=== PATIENT | female | born 1945 | race Caucasian/White ===

== ENCOUNTER 2016-10-11 14:23 | Inpatient (IN) ==
[2016-10-11 15:26] LABS: Hematocrit 40.1 % (35.3-44.9); Hemoglobin 13.4 g/dL (11.5-15.4); Mean Corpuscular HGB Conc 33.4 g/dL (31.6-35.5); Mean Corpuscular Hemoglobin 30.7 pg (28.0-33.3); Mean Corpuscular Volume 91.8 fL (83.0-100.0); Mean Platelet Volume 8.8 fL (9.4-12.4); Monocytes # 1.1 K/mcL (0.0-1.3); Platelet Count 429 K/mcL (140-400); Red Blood Count 4.37 M/mcL (3.82-4.97); Red Cell Distribution Width 13.2 % (11.5-14.5)
[2016-10-11] MEDS ORDERED: 0.9 % Sodium Chloride 1,000 ML IVC ONE ×2 (15:26→17:55)
--- NOTE | 2016-10-11 15:29 | Emergency Department Note ---
Disposition Clinical Impression: New onset a-fib, Community acquired pneumonia Sepsis Qualifiers: Sepsis type: sepsis due to unspecified organism Qualified Code(s): A41.9 - Sepsis, unspecified organism Disposition: Admitted As Inpatient Condition: Fair General Adult HPI - General Chief complaint: ED Nausea/Vomiting/Diarrhea Stated complaint: falls, N/V, BENEDICT Time Seen by Provider: 10/11/16 14:37 Source: patient, family Mode of arrival: private vehicle Limitations: no limitations Nursing Notes Reviewed: Yes Vital Signs Reviewed: Yes - History of Present Illness HPI Narrative: 71-year-old female history of hypertension, diabetes, insomnia who presents to the ER with family with a chief complaint of nausea, vomiting, cough, shortness of breath. Patient reports that she has felt short of breath with a productive cough for the last month. Family at bedside reports that she has not been herself over the last few days. They state that she has been talking to people abdomen for years. They also report that she has not wanted to eat at home. Patient reports that she does not usually wear oxygen continuously but has been for the last few weeks due to worsening shortness of breath. She is unsure how much oxygen she requires. No fevers that they are aware of. No chest pain currently. No other complaints. Pt Subjective Complaint: Nausea vomiting, short of breath Onset (ago): week(s) Pain Scale: 0 Improves with: nothing Worsens with: nothing Associated symptoms: Reports: confusion (as per family), cough, loss of appetite , nausea/vomiting, shortness of breath. Denies: chest pain, fever/chills Treatments Prior to Arrival: none - Related Data Home Medications Medication Instructions Recorded Confirmed Bupropion HCl [Wellbutrin Xl] 300 mg PO DAILY 10/11/16 10/11/16 Cevimeline HCl [Evoxac] 30 mg PO TID 10/11/16 10/11/16 Cilostazol 50 mg PO BID 10/11/16 10/11/16 Clopidogrel [Plavix] 75 mg PO DAILY 10/11/16 10/11/16 Donepezil [Aricept] 10 mg PO Q48H 10/11/16 10/11/16 Famotidine [Pepcid] 40 mg PO BID 10/11/16 10/11/16 Hydroxyzine HCl 25 mg PO BID 10/11/16 10/11/16 Medroxyprogesterone Acetate 2.5 mg PO Q48H 10/11/16 10/11/16 [Provera] Melatonin 15 mg PO HS 10/11/16 10/11/16 Montelukast [Singulair] 10 mg PO DAILY 10/11/16 10/11/16 Nabumetone [Relafen] 500 mg PO BID 10/11/16 10/11/16 Pioglitazone HCl/Metformin HCl 1 each PO BID 10/11/16 10/11/16 [Actoplus Met 15 mg-500 mg Tab] Pravastatin Sodium [Pravachol] 40 mg PO HS 10/11/16 10/11/16 Sertraline [Zoloft] 100 mg PO QPM 10/11/16 10/11/16 Sertraline [Zoloft] 200 mg PO QAM 10/11/16 10/11/16 Solifenacin Succinate [Vesicare] 10 mg PO DAILY 10/11/16 10/11/16 Allergies Allergy/AdvReac Type Severity Reaction Status Date / Time Penicillins Allergy See Verified 10/11/16 14:29 Comments All systems ED: reviewed and negative except as stated. Constitutional: Reports: weakness. Denies: fever Cardiovascular: Denies: chest pain Respiratory: Reports: cough, dyspnea Gastrointestinal: Reports: nausea, vomiting. Denies: abdominal pain, diarrhea Neurological: Reports: weakness Past Medical History - Past Medical History Attestation: Yes The following information was validated with the patient. Source: patient Medical history: Reports: COPD, diabetes, hyperlipidemia, hypertension Surgical history: Reports: non-contributory - Social History Smoking Status: Current every day smoker Smokeless Tobacco Status: No Alcohol use: Reports: none Physical Exam - General Limitations: no limitations General appearance: alert, in no apparent distress - Head Head exam: atraumatic, normocephalic, normal inspection - Eye Eye exam: Present: normal appearance, EOMI - ENT ENT exam: normal exam - Neck Neck exam: Present: normal inspection - Chest Chest inspection: Present: normal inspection, symmetric chest wall rise - Respiratory Respiratory exam: Present: wheezes (diffuse wheezing in all lung gonzales with prolonged expiratory phase), accessory muscle use, prolonged expiratory phase - Cardiovascular Cardiovascular exam: Present: tachycardia, irregular rhythm, normal heart sounds - Abdominal Exam Abdominal exam: Present: soft, Non-Tender. Absent: tenderness - Extremities Exam Extremities exam: Present: normal inspection, full ROM - Expanded Upper Extremity Exam Shoulder exam: Present: normal inspection, full ROM Arm exam: Present: normal inspection, full ROM Elbow exam: Present: normal inspection, full ROM Forearm/Wrist exam: Present: normal inspection, full ROM Hand exam: Present: normal inspection, full ROM - Expanded Lower Extremity Exam Hip/Pelvis exam: Present: normal inspection, full ROM Upper leg exam: Present: normal inspection, full ROM Knee exam: Present: normal inspection, full ROM Lower leg exam: Present: normal inspection, full ROM Ankle exam: Present: normal inspection, full ROM Foot/toe exam: Present: normal inspection, full ROM - Neurological Exam Neurological exam: Present: alert, oriented X3, CN II-XII intact - Expanded Neurological Exam Patient oriented to: Present: person, place, time Speech: Present: fluid speech Motor strength - LUE: 4/5 Motor strength - RUE: 4/5 Motor strength - LLE: 4/5 Motor strength - RLE: 4/5 Coma Scale Eye Opening: Spontaneous Coma Scale Motor Response: Obeys Commands Coma Scale Verbal Response: Oriented Coma Scale Total: 15 - Psychiatric Psychiatric exam: Present: normal affect, normal mood - Skin Skin exam: Present: warm, dry, intact, normal color Course Course Narrative: Patient seen and examined. Vital signs reviewed. Patient meets sepsis criteria by her vitals. We will get an EKG, chest x-ray as well as labs including blood cultures and lactate. We will also obtain a CT scan of the head and a urinalysis. We will give her 1 L saline bolus and reassessed. Patient appears to be in A. fib RVR which is new for her. - Reevaluation(s) Reevaluation #1: Discussed results of imaging and lab work with the patient and family. She is still working to breathe so we will place her on CPAP. Vital Signs Temperature 98.8 F 10/11/16 14:27 Pulse Rate 114 10/11/16 14:27 Respiratory Rate 20 10/11/16 14:27 Blood Pressure 168/65 10/11/16 14:27 O2 Sat by Pulse Oximetry 84 10/11/16 14:27 Temperature 97.7 F 10/19/16 06:33 Pulse Rate 63 10/19/16 06:33 Respiratory Rate 18 10/19/16 06:33 Blood Pressure 131/49 04/12/17 06:33 O2 Sat by Pulse Oximetry 96 10/19/16 06:33 Oxygen Delivery Oxygen Delivery Bipap Medical Decision Making - MDM Narrative Medical decision making narrative: 71-year-old female presents to the ER due to cough, shortness of breath, weakness, nausea and vomiting. Has been sick for roughly 5 weeks. Increased O2 requirement at home from when necessary to continuous. Reports a cough and productive sputum. EKG here is atrial fibrillation with RVR which is new. Chest x-ray concerning for diffuse infectious process. She has a white count and is tachycardic so meets sepsis criteria. Her lactate is normal. Blood cultures, sputum cultures and fungal cultures have been obtained. We will start her on IV Levaquin and Diflucan concern for fungal etiology as well. Patient placed on BiPAP due to respiratory effort. Patient admitted to the hospitalist service. - Lab Data Lab results reviewed: Yes I reviewed the patient's lab results. Result diagrams: 10/19/16 04:31 10/19/16 04:31 Lab Results 10/11/16 10/11/16 10/11/16 Range/Units 15:13 15:13 15:13 WBC 14.3 H (4.3-11.1) K/mcL RBC 4.37 (3.82-4.97) M/mcL Hgb 13.4 (11.5-15.4) g/dL Hct 40.1 (35.3-44.9) % MCV 91.8 (83.0-100.0) fL MCH 30.7 (28.0-33.3) pg MCHC 33.4 (31.6-35.5) g/dL RDW 13.2 (11.5-14.5) % Plt Count 429 H (140-400) K/mcL MPV 8.8 L (9.4-12.4) fL Seg Neutrophils % 66.0 % Band Neutrophils % 12.0 H (0-4) % Lymphocytes % 14.0 % Monocytes % 8.0 % Neutrophils # 11.2 H (1.6-8.9) K/mcL Lymphocytes # 2.0 (0.6-4.6) K/mcL Monocytes # 1.1 (0.0-1.3) K/mcL Platelet Estimate Normal (Normal) Sodium 140 (136-145) mEq/L Potassium 3.0 L (3.5-4.5) mEq/L Chloride 97 L (98-109) mEq/L Carbon Dioxide 28 (19-29) mEq/L BUN 13 (7-20) mg/dL Creatinine 0.68 (0.57-1.11) mg/dL Est GFR ( Amer) > 60 (> 60) Est GFR (Non-Af Amer) > 60 (> 60) BUN/Creatinine Ratio 19 (6-26) Glucose 184 H (70-99) mg/dL Calculated Osmolality 295 (280-300) Lactic Acid 0.8 (0.5-2.2) mmol/L Calcium 10.2 (8.6-10.8) mg/dL Phosphorus 2.9 (2.3-4.7) mg/dL Magnesium 1.6 (1.6-2.6) mg/dL Total Bilirubin 0.3 (0.2-1.2) mg/dL Direct Bilirubin 0.2 (0.0-0.5) mg/dL Indirect Bilirubin 0.1 (0.0-1.2) mg/dL AST 22 (5-34) Units/L ALT 30 (0-55) Units/L Alkaline Phosphatase 105 (38-126) Units/L Troponin I (0-0.03) ng/mL B-Natriuretic Peptide (0-100) pg/mL Serum Total Protein 7.6 (6.0-8.3) g/dL Albumin 2.7 L (3.5-5.0) g/dL Globulin 4.9 H (2.4-3.5) g/dL Albumin/Globulin Ratio 0.6 L (1.1-2.2) TSH 1.073 (0.350-4.840) mcIU/mL Urine Color (Yellow) Urine Clarity (Clear) Urine pH (5.0-8.0) pH Units Ur Specific [place] (1.010-1.025) Urine Protein (Neg-Trace) mg/dL Urine Glucose (UA) (Normal) mg/dL Urine Ketones (Negative) mg/dL Urine Blood (Negative) Urine Nitrite (Negative) Urine Bilirubin (Negative) Urine Urobilinogen (Normal) mg/dL Ur Leukocyte Esterase (Negative) Urine Microscopic RBC (0-3) per hpf Urine Microscopic WBC (0-3) per hpf Ur Squamous Epith Cells (None-Few) per lpf Urine Bacteria (None-Few) per hpf Hyaline Casts (None-Few) per lpf Urine Mucus (Few) Ur Culture Indicated? (NO) 10/11/16 10/11/16 10/11/16 Range/Units 15:13 15:13 16:10 WBC (4.3-11.1) K/mcL RBC (3.82-4.97) M/mcL Hgb (11.5-15.4) g/dL Hct (35.3-44.9) % MCV (83.0-100.0) fL MCH (28.0-33.3) pg MCHC (31.6-35.5) g/dL RDW (11.5-14.5) % Plt Count (140-400) K/mcL MPV (9.4-12.4) fL Seg Neutrophils % % Band Neutrophils % (0-4) % Lymphocytes % % Monocytes % % Neutrophils # (1.6-8.9) K/mcL Lymphocytes # (0.6-4.6) K/mcL Monocytes # (0.0-1.3) K/mcL Platelet Estimate (Normal) Sodium (136-145) mEq/L Potassium (3.5-4.5) mEq/L Chloride (98-109) mEq/L Carbon Dioxide (19-29) mEq/L BUN (7-20) mg/dL Creatinine (0.57-1.11) mg/dL Est GFR ( Amer) (> 60) Est GFR (Non-Af Amer) (> 60) BUN/Creatinine Ratio (6-26) Glucose (70-99) mg/dL Calculated Osmolality (280-300) Lactic Acid (0.5-2.2) mmol/L Calcium (8.6-10.8) mg/dL Phosphorus (2.3-4.7) mg/dL Magnesium (1.6-2.6) mg/dL Total Bilirubin (0.2-1.2) mg/dL Direct Bilirubin (0.0-0.5) mg/dL Indirect Bilirubin (0.0-1.2) mg/dL AST (5-34) Units/L ALT (0-55) Units/L Alkaline Phosphatase (38-126) Units/L Troponin I 0.01 (0-0.03) ng/mL B-Natriuretic Peptide 103 H (0-100) pg/mL Serum Total Protein (6.0-8.3) g/dL Albumin (3.5-5.0) g/dL Globulin (2.4-3.5) g/dL Albumin/Globulin Ratio (1.1-2.2) TSH (0.350-4.840) mcIU/mL Urine Color Dark Yellow (Yellow) Urine Clarity Cloudy A (Clear) Urine pH 6.0 (5.0-8.0) pH Units Ur Specific [place] > 1.030 H (1.010-1.025) Urine Protein 100 H (Neg-Trace) mg/dL Urine Glucose (UA) Normal (Normal) mg/dL Urine Ketones 40 H (Negative) mg/dL Urine Blood Negative (Negative) Urine Nitrite Negative (Negative) Urine Bilirubin Moderate H (Negative) Urine Urobilinogen Normal (Normal) mg/dL Ur Leukocyte Esterase Negative (Negative) Urine Microscopic RBC 5-15 H (0-3) per hpf Urine Microscopic WBC 3-5 H (0-3) per hpf Ur Squamous Epith Cells Many H (None-Few) per lpf Urine Bacteria Few (None-Few) per hpf Hyaline Casts Moderate H (None-Few) per lpf Urine Mucus Moderate H (Few) Ur Culture Indicated? NO (NO) - Radiology Data Radiology results reviewed: Yes I reviewed the patient's radiology results. Chest X-Ray 10/11/16 15:02 IMPRESSION: Coarse reticular nodular pattern throughout the lungs suggesting diffuse infectious or inflammatory process. D/ / Pedro Oro MD / Pedro Oro MD Interpreting Provider: Pedro Oro MD Head CT 10/11/16 15:03 IMPRESSION: Limited by motion artifacts. No acute intracranial abnormality. Mild parenchymal volume loss. Mild chronic microvascular disease. Mild right mastoid effusion. D/ / Oumar Castaneda MD / Oumar Castaneda MD Interpreting Provider: Oumar Castaneda MD - EKG Data EKG #1 EKG attestation: Yes I reviewed and interpreted this EKG. EKG results narrative: EKG demonstrates atrial fibrillation with rate of 109 with rapid ventricular response. Normal axis. Respiration 88 QTC 310 slight depression in lead V5 and V6. No ST elevations. Significant changes from previous EKG include atrial fibrillation. S.B.A.R. - S.B.A.R. Situation: Demographics, MOA Background: Presenting Complaint, Relevant PMH, Meds, & Allergies Assessment: Vital Signs, Course and respsone to treatment, Exam Concerns, Patient/Family Expectation, Pertinant Lab Results, Outstanding Labs Recommendation: Barrier(s) to disposition, Recommendation based on pending studies, treatments, or consults S.B.A.R. Report Given to: Paola Soria Attestation Statement - Attestation Attestation: I examined this patient and my medical decision-making was reviewed with the Resident Physician. I agree with the documented findings, disposition and treatment plan as described.
[2016-10-11 15:44] LABS: Alanine Aminotransferase 30 Units/L (0-55); Albumin 2.7 g/dL (3.5-5.0); Albumin/Globulin Ratio 0.6 (1.1-2.2); Alkaline Phosphatase 105 Units/L (38-126); Aspartate Amino Transferase 22 Units/L (5-34); BUN/Creatinine Ratio 19 (6-26); Bilirubin,Direct 0.2 mg/dL (0.0-0.5); Bilirubin,Indirect 0.1 mg/dL (0.0-1.2); Bilirubin,Total 0.3 mg/dL (0.2-1.2); Blood Urea Nitrogen 13 mg/dL (7-20); Calcium 10.2 mg/dL (8.6-10.8); Carbon Dioxide 28 mEq/L (19-29); Chloride 97 mEq/L (98-109); Globulin 4.9 g/dL (2.4-3.5); Glucose 184 mg/dL (70-99); Magnesium 1.6 mg/dL (1.6-2.6); Osmolality,Calculated 295 (280-300); Phosphorous 2.9 mg/dL (2.3-4.7); Sodium 140 mEq/L (136-145); Total Protein 7.6 g/dL (6.0-8.3); eGFR For African Americans > 60 (> 60); eGFR For Non-African Americans > 60 (> 60)
[2016-10-11 15:53] LABS: Neutrophils # 11.2 K/mcL (1.6-8.9)
[2016-10-11 15:54] LABS: Platelet Estimate Normal (Normal)
[2016-10-11 16:35] LABS: Bilirubin,Urine Moderate (Negative); Blood,Urine Negative (Negative); Clarity,Urine Cloudy (Clear); Color,Urine Dark Yellow (Yellow); Glucose,Urine (UA) Normal (Normal); Ketones,Urine 40 mg/dL (Negative); Leukocyte Esterase,Urine Negative (Negative); Nitrite,Urine Negative (Negative); Protein,Urine 100 mg/dL (Neg-Trace); Specific Gravity,Urine > 1.030 (1.010-1.025); Urobilinogen,Urine Normal (Normal)
[2016-10-11 16:39] LABS: Bacteria,Urine Few per hpf (None-Few); Hyaline Casts,Urine Moderate per lpf (None-Few); Squamous Epithelial Cell,Urine Many per lpf (None-Few)
[2016-10-11 16:51] LABS: Mucus,Urine Moderate (Few)
[2016-10-11] MEDS ORDERED: methylPREDNISolone 125 MG/2 ML VIAL IVP ONE (17:25)
[2016-10-11] MEDS ORDERED: Levofloxacin 750 MG/150 ML 750 MG/150 ML BAG IVPB ONE (17:27)
[2016-10-11] MEDS ORDERED: Fluconazole 400 MG/200 ML 400 MG/200 ML BAG IVPB ONE (17:28)
[2016-10-11 19:40] LABS: Thyroid Stimulating Hormone 1.073 mcIU/mL (0.350-4.840)
[2016-10-11] MEDS ORDERED: *HR* Heparin 5,000 UNIT/ML VIAL IVP PRN ×2 (22:09)
[2016-10-11] MEDS ORDERED: Naloxone 0.4 MG/ML INJ IVP PRN (22:09)
[2016-10-11] MEDS ORDERED: Albuterol 2.5 MG/3 ML NEBULIZER IH PRN (22:09)
[2016-10-11] MEDS ORDERED: *HR* Heparin 5,000 UNIT/ML VIAL IVP ONE (22:09)
[2016-10-11] MEDS ORDERED: Heparin 25,000 UNIT/500 ML D5W 25,000 UNIT/500 ML MLS IVC SCH (22:15)
[2016-10-11] MEDS: Ipratropium/Albuterol Neb 3 ML IH SCH (22:41)
--- NOTE | 2016-10-11 22:43 | Internal Med History&Physical ---
Date of Encounter: 10/11/16 Time of Encounter: 21:40 Assessment and Plan (1) Sepsis Current visit: Yes Status: Acute 1. Likely source is Pneumonia and/or UTI. 2. I'm also concerned about Influenza -- will test for that. 3. Patient received Levaquin in ER, and I'll continue that for now. 4. Sepsis criteria may be exaggerated by Atrial Fibrillation/RVR and altered mental status (likely from hypercarbia) which has since resolved. Nonetheless, will treat as such and monitor closely. 5. BP stable -- monitor hemodynamics closely. 6. Blood and sputum cultures collected in ER, but urine culture was not. I ordered urine culture from original U/A specimen. Qualifiers: Sepsis type: sepsis due to unspecified organism Qualified Code(s): A41.9 - Sepsis, unspecified organism (2) Acute exacerbation of chronic obstructive airways disease Current visit: Yes Status: Acute 1. Will treat with steroids, aerosols, and antibiotics. 2. Monitor oxygen levels and clinical status closely. 3. Will consider ABG and BiPap if clinically indicated. (3) UTI (urinary tract infection) Current visit: Yes Status: Acute 1. Culture urine -- ordered on sample collected from U/A in ER. 2. Continue antibiotics as ordered. 3. Likely etiology for altered mental status change which has resolved. Qualifiers: Urinary tract infection type: acute cystitis Hematuria presence: without hematuria Qualified Code(s): N30.00 - Acute cystitis without hematuria (4) New onset a-fib Current visit: Yes Status: Acute 1. Correct hypokalemia. 2. Will start PO Lopressor and monitor closely. HR currently 110's. 3. May need IV meds/drip if HR uncontrolled. 4. I am starting heparin gtt per protocol for new-onset atrial fibrillation. 5. Will order ECHO, serial troponins, and check TSH. 6. Cardiology consult in am. (5) Hypokalemia Current visit: Yes Status: Acute 1. Correct with PO potassium supplementation. 2. Monitor levels and check magnesium level as well. (6) DVT prophylaxis Current visit: Yes Status: Acute 1. On heparin gtt per protocol. Internal Medicine - H&P: HPI Chief complaint: cough; wheeze; altered mental status Admitted From: Emergency Dept Plans for Post Hospital Care: Home History of present illness: Ms. Wood is a 71 year old female who presented to ER with complaints of coughing, wheezing, and altered mental status. She was found to have evidence of pneumonia on x-ray and exam as well as leukocytosis and criteria suggesting sepsis. She was subsequently treated as such and admitted to the hospitalist service. On my assessment of the patient, she is awake, alert, and oriented 3. She is not confused, hallucinating, or delusional. She admits that she was "seeing things earlier today". She states that this concerned her son and he brought her in to the ER. She states she has never done this before and attributes this to her shortness of breath and coughing. She has a history of COPD and continues to smoke. She admits that she has been having fevers, chills, and productive sputum lately as well. Additionally, I reviewed her EKG, and she does have evidence of atrial fibrillation with rapid ventricular response. She is tachycardic with a heart rate in the 110s, but blood pressure is stable. In the ER, she received a dose of steroids and antibiotics, but she has not received anything for heart rate control yet. She has received 2 L of saline bolus and was initially placed on BiPAP. She did not tolerate BiPAP, as it made her very anxious. We removed BiPAP and put on oxygen by nasal cannula, and she seems to be tolerating this very well. She is mentating normally now. She denies any recent ill contacts, particularly influenza. Past Med Surg Social Fam HX - Past Medical History Attestation: Yes The following information was validated with the patient. Source: patient, old records reviewed Medical history: COPD, diabetes, hyperlipidemia, hypertension Psychiatric history: anxiety - Past Surgical History Surgical History: no surgical history - Social History Smoking Status: Current every day smoker Smokeless Tobacco Status: No Alcohol use: none Current living situation: Home, With Family Activity Level: Uses cane/walker Recent Out of Country Travel Within the Last 8 Weeks: No - Family History Mother History Unknown: Yes Living Status: Father History Unknown: Yes Living Status: Internal Medicine - H&P: Meds Bupropion HCl [Wellbutrin Xl] 300 mg PO DAILY 10/11/16 [History] Cevimeline HCl [Evoxac] 30 mg PO TID 10/11/16 [History] Cilostazol 50 mg PO BID 10/11/16 [History] Clopidogrel [Plavix] 75 mg PO DAILY 10/11/16 [History] Donepezil [Aricept] 10 mg PO Q48H 10/11/16 [History] Famotidine [Pepcid] 40 mg PO BID 10/11/16 [History] Hydroxyzine HCl 25 mg PO BID 10/11/16 [History] Medroxyprogesterone Acetate [Provera] 2.5 mg PO Q48H 10/11/16 [History] Melatonin 15 mg PO HS 10/11/16 [History] Montelukast [Singulair] 10 mg PO DAILY 10/11/16 [History] Nabumetone [Relafen] 500 mg PO BID 10/11/16 [History] Pioglitazone HCl/Metformin HCl [Actoplus Met 15 mg-500 mg Tab] 1 each PO BID 10/24 [History] Pravastatin Sodium [Pravachol] 40 mg PO HS 10/11/16 [History] Sertraline [Zoloft] 100 mg PO QPM 10/11/16 [History] Sertraline [Zoloft] 200 mg PO QAM 10/11/16 [History] Solifenacin Succinate [Vesicare] 10 mg PO DAILY 10/11/16 [History] Allergies Penicillins Allergy (Verified 10/11/16 14:29) See Comments - Constitutional Constitutional: chills, fever(s), no night sweats - EENT Eyes: no blurry vision, no change in vision Ears: no ear pain, no tinnitus Nose, mouth and throat: no nasal congestion, no sinus pain, no sinus pressure, no sore throat - Cardiovascular Cardiovascular ROS IM: dyspnea, no chest pain, no lightheadedness, no orthopnea , no palpitations, no paroxysmal nocturnal dyspnea - Respiratory Respiratory: cough, dyspnea, wheezing, chest congestion, excessive phlegm production, change in phlegm color, no hemoptysis, no pain with cough - Gastrointestinal Gastrointestinal: no abdominal pain, no diarrhea, no hematemesis, no hematochezia, no melena, no vomiting - Genitourinary Genitourinary: no dysuria, no flank pain, no hematuria - Musculoskeletal Musculoskeletal ROS IM: no arthralgias, no back pain, no joint swelling - Integumentary Integumentary IM: no rash, no jaundice - Neurological Neurological ROS: confusion (earlier -- resolved now), no dizziness, no focal weakness, no frequent falls, no headache(s) - Psychiatric Psychiatric: anxiety, hallucinations (earlier today -- resolved), no depression - Endocrine Endocrine IM: no polydipsia, no polyuria - Hematologic/Lymphatic Hematologic/Lymphatic: no lymphadenopathy - Allergic/Immunologic Allergic/Immunologic: wheezing, no GI upset with certain foods - Constitutional Vitals: Temp Pulse Resp BP Pulse Ox 98.3 F 117 18 191/79 96 10/11/16 21:04 10/11/16 21:04 10/11/16 21:04 10/11/16 21:04 10/11/16 21:04 General appearance: Present: cooperative, mild distress, A&O X 3, pleasant, answers questions appropriately - Head Head exam: Present: atraumatic, normal inspection - Expanded Head Exam Head exam expanded: Absent: abrasion, contusion, general tenderness - Eye Eye exam: Present: EOMI, normal appearance, PERRL. Absent: scleral icterus Pupils: Present: normal accommodation - ENT ENT exam: Present: mucous membranes moist, normal exam, normal oropharynx Additional comments: mild nasal congestion; no post-nasal drip - Neck Neck exam general surgery: Present: full ROM, normal inspection, supple. Absent : lymphadenopathy, tenderness, nuchal rigidity - Expanded Neck Exam Neck exam: Absent: carotid bruit - Respiratory Respiratory exam: Present: accessory muscle use (mild), prolonged expiratory phase, rales, respiratory distress (mild to moderate), wheezes, tachypnea. Absent: chest wall tenderness, CTAB, rhonchi - Cardiovascular Cardiovascular exam: Present: irregular rhythm, +S1, +S2, tachycardia. Absent: clicks, diastolic murmur, JVD, systolic murmur - GI/Abdominal GI/Abdominal exam: Present: soft. Absent: guarding, hepatomegaly, mass, rebound , splenomegaly, tenderness - Extremities Exam Extremities exam: Present: full ROM, warm. Absent: calf tenderness, joint swelling, pedal edema, tenderness - Back Exam Back exam: Present: normal inspection. Absent: CVA tenderness (L), CVA tenderness (R) - Neurological Exam Neurological exam: Present: alert, CN II-XII intact, oriented X3, no focal deficits - Psychiatric Psychiatric exam: Present: anxious. Absent: depressed Additional comments: pleasant and cooperative - Skin Skin exam: Present: dry, warm. Absent: rash Internal Med - H&P Results - Labs CBC & Chem 7: 10/11/16 15:13 10/11/16 15:13 - EKG Data -: EKG Interpreted by Myself - EKG Data Prior EKG available for review: yes When compared to previous EKG: there are significant changes EKG comments: 10/11/16 22:53 New atrial fibrillation with RVR. - Diagnostic Studies Chest x-ray Status: image reviewed by me (no infiltrate; reticulonodular pattern appreciated in lungs -- agree with radiology report) - VTE Reasons for not Prescribing Prophylaxis: Not indicated-Anticoagulated or INR therapeutic
[2016-10-11 23:14] LABS: INR 1.2; Prothrombin Time 13.5 Seconds (9.4-12.1)
[2016-10-11 23:17] LABS: Activated Partial Thrombo Time 29.5 Seconds (26.0-36.0)
[2016-10-11] MEDS: 0.9 % Sodium Chloride w KCl 20 MEQ/1,000 ML MLS IVC SCH (23:18)
[2016-10-11 23:35] LABS: Hemoglobin 12.8 g/dL (11.5-15.4); Mean Corpuscular HGB Conc 32.8 g/dL (31.6-35.5); Mean Corpuscular Hemoglobin 30.8 pg (28.0-33.3); Mean Platelet Volume 9.3 fL (9.4-12.4); Platelet Count 410 K/mcL (140-400); Red Blood Count 4.15 M/mcL (3.82-4.97); Red Cell Distribution Width 13.7 % (11.5-14.5)
[2016-10-12] MEDS: methylPREDNISolone 125 MG/2 ML VIAL IVP SCH ×4 (00:26→23:09)
[2016-10-12 03:28] LABS: 2009 H1N1 PCR NOT DETECTED (Not Detect); Influenza A PCR Negative (Negative); Influenza B PCR Negative (Negative)
[2016-10-12] MEDS: Ipratropium/Albuterol Neb 3 ML IH SCH ×5 (05:16→21:14)
[2016-10-12 05:59] LABS: Hematocrit 37.8 % (35.3-44.9); Hemoglobin 12.1 g/dL (11.5-15.4); Lymphocytes # 1.6 K/mcL (0.6-4.6); Mean Corpuscular Volume 93.6 fL (83.0-100.0); Mean Platelet Volume 9.3 fL (9.4-12.4); Platelet Count 404 K/mcL (140-400); Red Blood Count 4.04 M/mcL (3.82-4.97); Red Cell Distribution Width 13.5 % (11.5-14.5)
[2016-10-12 06:10] LABS: Alanine Aminotransferase 30 Units/L (0-55); Albumin 2.3 g/dL (3.5-5.0); Albumin/Globulin Ratio 0.5 (1.1-2.2); Alkaline Phosphatase 100 Units/L (38-126); Aspartate Amino Transferase 35 Units/L (5-34); BUN/Creatinine Ratio 20 (6-26); Bilirubin,Total 0.3 mg/dL (0.2-1.2); Blood Urea Nitrogen 13 mg/dL (7-20); Calcium 9.6 mg/dL (8.6-10.8); Carbon Dioxide 23 mEq/L (19-29); Chloride 103 mEq/L (98-109); Chol/HDL Ratio 3.4 (0-4.9); Cholesterol 92 mg/dL (< 200); Globulin 4.6 g/dL (2.4-3.5); Glucose 187 mg/dL (70-99); HDL Cholesterol 27 mg/dL (40-59); LDL Cholesterol,Calculated 39 mg/dL (0-99); Magnesium 1.8 mg/dL (1.6-2.6); Osmolality,Calculated 297 (280-300); Sodium 141 mEq/L (136-145); Total Protein 6.9 g/dL (6.0-8.3); Triglycerides 132 mg/dL (< 150); eGFR For African Americans > 60 (> 60); eGFR For Non-African Americans > 60 (> 60)
[2016-10-12 06:18] LABS: Potassium 4.6 mEq/L (3.5-4.5)
[2016-10-12 06:30] LABS: Thyroid Stimulating Hormone 0.491 mcIU/mL (0.350-4.840)
[2016-10-12] MEDS: 0.9 % Sodium Chloride w KCl 20 MEQ/1,000 ML MLS IVC SCH (06:48)
[2016-10-12 07:10] LABS: Monocytes # 0.4 K/mcL (0.0-1.3); Neutrophils # 10.4 K/mcL (1.6-8.9); Platelet Estimate Normal (Normal)
[2016-10-12] MEDS: Famotidine 20 MG TABLET PO SCH ×2 (08:08→23:09)
[2016-10-12] MEDS ORDERED: Dextrose Gel 15 GM PO PRN ×2 (08:11)
[2016-10-12] MEDS ORDERED: *HR* Dextrose 50 % in Water (Syg) 50 ML SYRINGE IVP PRN (08:11)
[2016-10-12] MEDS ORDERED: D5% in Water 1,000 ML IVC PRN (08:11)
[2016-10-12] MEDS: 0.9 % Sodium Chloride 1,000 ML IVC SCH ×2 (09:45→19:56)
--- NOTE | 2016-10-12 10:26 | Cardiology Consult Note ---
Date of Encounter: 10/12/16 Time of Encounter: 10:00 Assessment and Plan (1) Multifocal atrial tachycardia Current Visit: Yes Status: Acute Patient's EKGs with polymorphic p waves and tracing consistent with MAT, not atrial fibrillation 24 hour telemetry reveals: rhythm MAT, avg HR 97, min 82, max 124 Patient's advanced COPD likely etiology BP not well controlled at this time with systolic BP 170s-180s, HR 80s Recommend better rate control Anticoagulation not indicated for MAT Plan: Will start Cardizem 120mg daily, titrate to HR Discontinue Lopressor given underlying lung disease Will start Lisinopril 10mg daily (2) Hypertension Current Visit: Yes Status: Chronic Uncontrolled currently BP 175/71, 188/83 Recommend plan as above Continue to monitor closely Qualifiers: Hypertension type: essential hypertension Qualified Code(s): I10 - Essential (primary) hypertension Discussion w patient/family: The assessment and plan as outlined above was discussed with the patient and/or family members who expressed understanding and agreement. All questions were answered. Thank you for involving us in the care of your patient. Please call with any questions. History of Present Illness Consult date: 10/11/16 Requesting physician: Nils Gomes Consult reason: new onset afib Chief complaint: dyspnea, cough History of present illness: Ms. Wood is a 71 year old female who presented to [facility] with complaint of dyspnea, cough, weakness. She is a poor historian and unable to provide a complete medical history. Today, she complains of continued dyspnea at rest. She states that she quit smoking approximately 3 weeks ago. Past Med Surg Social Fam HX - Past Medical History Medical history: COPD, dementia, diabetes, GERD, hyperlipidemia, hypertension, other (Intermittent claudication, Xerostomia, Overactive bladder, Tobacco abuse disorder, Left hearing loss, Left chronic serous OM, Hepatitis C antibody) Psychiatric history: anxiety - Past Surgical History Surgical History: no surgical history - Social History Smoking Status: Current every day smoker Smokeless Tobacco Status: No Alcohol use: none Drug use: none - Family History Mother History Unknown: Yes Living Status: Age at : 79 Cause of : "heart trouble" Hx Family Cardiac Disorders: Yes (HTN) Hx Family Respiratory Disorders: Yes (Emphysema) Hx Family Cancer: Yes (Breast) Hx Family GI Disorders: No Hx Family Genitourinary Disorders: No Hx Family Endocrine Disorder: No Hx Family Musculoskeletal Disorders: No Hx Family Neuromuscular Disorders: No Hx Family Neurologic Disorders: No Hx Family HEENT Disorders: No Hx Family Autoimmune Disorders: No Hx Family Reproductive Disorders: No Hx Family Psychosocial Disorders: No Hx Family Medical Disorders: No Father History Unknown: Yes Living Status: Medications and Allergies Bupropion HCl [Wellbutrin Xl] 300 mg PO DAILY 10/11/16 [History] Cevimeline HCl [Evoxac] 30 mg PO TID 10/11/16 [History] Cilostazol 50 mg PO BID 10/11/16 [History] Clopidogrel [Plavix] 75 mg PO DAILY 10/11/16 [History] Donepezil [Aricept] 10 mg PO Q48H 10/11/16 [History] Famotidine [Pepcid] 40 mg PO BID 10/11/16 [History] Hydroxyzine HCl 25 mg PO BID 10/11/16 [History] Medroxyprogesterone Acetate [Provera] 2.5 mg PO Q48H 10/11/16 [History] Melatonin 15 mg PO HS 10/11/16 [History] Montelukast [Singulair] 10 mg PO DAILY 10/11/16 [History] Nabumetone [Relafen] 500 mg PO BID 10/11/16 [History] Pioglitazone HCl/Metformin HCl [Actoplus Met 15 mg-500 mg Tab] 1 each PO BID 10/24 [History] Pravastatin Sodium [Pravachol] 40 mg PO HS 10/11/16 [History] Sertraline [Zoloft] 100 mg PO QPM 10/11/16 [History] Sertraline [Zoloft] 200 mg PO QAM 10/11/16 [History] Solifenacin Succinate [Vesicare] 10 mg PO DAILY 10/11/16 [History] Allergies Penicillins Allergy (Verified 10/11/16 14:29) See Comments All Systems Review: A 10-system review of systems was performed and is negative for pertinent findings except as documented above in the HPI. Physical Examination Vital Signs, Last 4 Hours Temp Pulse Resp BP Pulse Ox 10/12/16 07:21 97.7 F 85 20 175/71 95 General: Conversant, Other (Exhalation with pursed lips, dyspnic with conversation, mild distress) HEENT: Atraumatic, Normocephaly Neck: No JVD, Normal carotid pulses Cardiac: Reg Rate and Rhythm, Normal S1 and S2, No Murmur Lungs: Other (Expiratory wheezing all lung gonzales, diminished lung sounds to bilateral bases) Neuro: Alert and responsive, No focal deficits noted Abdomen: Soft Skin: No rashes noted on visualized skin Musculoskeletal: No Chest Wall Tenderness Extremities: No Clubbing, No Cyanosis, No Edema, Normal Pulses Results 10/12/16 05:03 10/12/16 05:03 Lab Results 10/11/16 10/11/16 10/11/16 22:59 22:59 22:59 WBC 13.8 H Hgb 12.8 Hct 39.0 Plt Count 410 H INR 1.2 APTT 29.5 Sodium Potassium Chloride Carbon Dioxide BUN Creatinine Glucose Calcium Magnesium Total Bilirubin AST ALT Alkaline Phosphatase Troponin I 0.01 TSH 10/12/16 10/12/16 10/12/16 05:03 05:03 05:03 WBC 12.5 H Hgb 12.1 Hct 37.8 Plt Count 404 H INR APTT Sodium 141 Potassium 4.6 H D Chloride 103 Carbon Dioxide 23 BUN 13 Creatinine 0.64 Glucose 187 H Calcium 9.6 Magnesium 1.8 Total Bilirubin 0.3 AST 35 H ALT 30 Alkaline Phosphatase 100 Troponin I 0.02 TSH 0.491 10/12/16 06:47 WBC Hgb Hct Plt Count INR APTT 30.9 Sodium Potassium Chloride Carbon Dioxide BUN Creatinine Glucose Calcium Magnesium Total Bilirubin AST ALT Alkaline Phosphatase Troponin I TSH - Imaging and Cardiology Chest Xray: report reviewed - EKG Interpretation EKG results cardiology: personally reviewed (Multifocal atrial tachycardia) Consult Discharge Plan - Plan Referrals: NO,PCP [Primary Care Provider] -
[2016-10-12] MEDS ORDERED: Ipratropium/Albuterol Neb 3 ML IH PRN (11:23)
--- NOTE | 2016-10-12 11:23 | Internal Med Progress Note ---
Date of Encounter: 10/12/16 Time of Encounter: 08:30 - Subjective Interval history: Patient seen and examined at bedside. Resting in bed and reports of improvement in her respiratory status compared to previous day. Mental status waxes and wanes at baseline, at this time she is AAO x 3. Noted to have new onset afib, currently rate controlled with BB and on anticoagulation with heparin gtt. Assessment and Plan (1) Sepsis Current visit: Yes Status: Acute -Likely secondary PNA -Influenza screen negative -Will continue Levaquin at this time -follow up blood cultures, urine cultures -will continue to closely monitor (2) Acute exacerbation of chronic obstructive airways disease Current visit: Yes Status: Acute -Likely secondary to PNA -Will continue IV steroids, bronchodilator support, and IV abx at this time -O2 supplementation as needed -ABG as needed -Bipap as needed (3) UTI (urinary tract infection) Current visit: Yes Status: Acute -UA not consistent with UTI -Patient asymptomatic at this time -will continue abx for PNA (4) New onset a-fib Current visit: Yes Status: Acute -Of unclear etiology, likely exacerbated with underlying infection -Rate currently controlled with BB -Currently on anticoagulation with Heparin gtt, 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 -Cardiology consultation requested -will continue tele monitoring -TSH wnl -follow up 2D echo (5) Hypokalemia Current visit: Yes Status: Acute -Resolved at this time -will continue to monitor electrolytes and replace as needed (6) DVT prophylaxis Current visit: Yes Status: Acute On heparin gtt per protocol. (7) Hypertension: -BP not controlled -Increased Metoprolol to 50mg PO BID -added Hydralazine 10mg IV q6h PRN SBP>160 -will continue to closely monitor - Constitutional Vitals: Temp Pulse Resp BP Pulse Ox 97.7 F 85 20 175/71 95 10/12/16 07:21 10/12/16 07:21 10/12/16 07:21 10/12/16 07:21 10/12/16 07:21 General appearance: Present: cooperative, A&O X 3, pleasant, no acute distress, obese, answers questions appropriately - Head Head exam: Present: atraumatic, normocephalic - Eye Eye exam: Present: normal appearance, conjuntiva pink, sclera anicteric - Respiratory Respiratory exam: Present: wheezes (decreased inspiratory effort with bilateral expiratory wheezing ). Absent: respiratory distress - Cardiovascular Cardiovascular exam: Present: irregular rhythm, +S1, +S2 - GI/Abdominal GI/Abdominal exam: Present: normal bowel sounds, soft, no peritoneal signs. Absent: distended, tenderness - Extremities Exam Extremities exam: Present: warm, radial pulses palpable and symetrical. Absent : calf tenderness, cyanotic, pedal edema - Neurological Exam Neurological exam: Present: alert, oriented X3 - Psychiatric Psychiatric exam: Present: normal affect, normal mood Internal Medicine: Result - Labs CBC & Chem 7: 10/12/16 05:03 10/12/16 05:03 Labs: Short CBC 10/11/16 10/12/16 Range/Units 22:59 05:03 WBC 13.8 H 12.5 H (4.3-11.1) K/mcL Hgb 12.8 12.1 (11.5-15.4) g/dL Hct 39.0 37.8 (35.3-44.9) % Plt Count 410 H 404 H (140-400) K/mcL Neutrophils # 10.4 H (1.6-8.9) K/mcL BMP 10/12/16 05:03 Sodium 141 Potassium 4.6 H D Chloride 103 Carbon Dioxide 23 BUN 13 Creatinine 0.64 Glucose 187 H Calcium 9.6 Cardiac Enzymes 10/11/16 10/12/16 Range/Units 22:59 05:03 Troponin I 0.01 0.02 (0-0.03) ng/mL Liver Function 10/12/16 Range/Units 05:03 Total Bilirubin 0.3 (0.2-1.2) mg/dL AST 35 H (5-34) Units/L ALT 30 (0-55) Units/L Alkaline Phosphatase 100 (38-126) Units/L Albumin 2.3 L (3.5-5.0) g/dL - ABG Interpretation ABG results: PT/INR, D-dimer PT 13.5 Seconds (9.4-12.1) H 10/11/16 22:59 - VTE Reasons for not Prescribing Prophylaxis: Not indicated-Anticoagulated or INR therapeutic Consult Discharge Plan - Plan Referrals: NO,PCP [Primary Care Provider] -
[2016-10-12] MEDS: Diltiazem CD (24hr) 120 MG CAPSULE PO SCH (12:11)
[2016-10-12] MEDS: Levofloxacin 750 MG/150 ML 750 MG/150 ML BAG IVPB SCH (12:14)
--- NOTE | 2016-10-12 12:14 | ECHO - Doppler Report ---
Echocardiogram Name: Gab Wood Date of Study: 10/12/2016 Date: 1945 Ht: 61.0 in Medical Record#: [id number] Age: 71 Wt: 168.0 lb Gender: Female BSA: 1.75 Order #: [id number] Location: [facility] Room #: 2A43 Reading Physician: Ivonne Bowen DO Car Ferrier: Cheryl Chaidez RVT, [facility] Ordering Physician: Nils Gomes MD Primary Physician: None Indications: new atrial fibrillation Impressions: LVEF 65%. Normal left ventricular size and systolic function. There is evidence of mild diastolic dysfunction of the left ventricle. Normal right ventricular size and function. Mild mitral regurgitation. No pulmonary hypertension. Left Ventricular Wall Motion: Rest Echo Findings All wall segments showed normal motion. Findings: Study Quality * Technically adequate exam. ECG Findings * Normal sinus rhythm. Left Ventricle * LVEF 60%. * Normal LV chamber size, wall thickness and function. * Mild left ventricular diastolic dysfunction. Left Atrium * Normal left atrial size. Mitral Valve * Normal mitral valve structure. * No mitral stenosis. * Mild mitral regurgitation. Aortic Valve * No aortic regurgitation. * Aortic valve not well visualized. * No aortic stenosis. Tricuspid Valve * Tricuspid valve not well visualized. * Trace tricuspid regurgitation. * Estimated RA pressure is 3 mmHg. Pulmonic Valve * Pulmonic valve is not well visualized. * No pulmonic stenosis. * No pulmonic regurgitation. Pulmonary Artery * Pulmonary artery not well visualized. Right Ventricle * Normal right ventricular structure and function. Right Atrium * Normal right atrial size. Interatrial Septum * No evidence of PFO by color Doppler. IVC * Normal IVC dimensions and inspiratory collapse. Pericardium * There is no pericardial effusion present. History Hypertension Diabetes Hypercholesteremia Family History of CAD Measurements: BP: 175/ 71 2D Normal Values RVIDd: 2.70 cm <2.7 cm IVSd: 1.00 cm 0.6 - 1.0 cm LVIDd: 5.10 cm 3.7 - 5.6 cm LVPWd: 1.10 cm 0.6 - 1.1 cm LVIDs: 3.60 cm 1.5 - 3.6 cm AO: 2.70 cm < 4.0 cm LA: 4.30 cm 2.0 - 4.0cm %FS: 29.40 cm >25 % LA volume: 46 Mitral Valve Dec Time:250.00 msec Peak E:1.25 m/sec Peak A:1.64 m/sec E/A Ratio:0.8 Peak E' Lat Albert:8.91 cm/s Peak E' Med Albert:7.69 cm/s E/E' Lat Ratio:14 E/E' Med Ratio:16.3 Updated by Ivonne Bowen on 10/12/2016 12:07:37 PM electronically signed on 10/12/2016 12:08:48 PM with status of Final Wall Motion Lopez: 1=Normal, 2=Hypokinesis, 3=Akinesis, 4=Dyskinesis, 5=Aneurysmal, 6=Hyperkinetic, X=Not Visualized (Blank)=Missing
[2016-10-12] MEDS: Insulin LISPRO 300 UNITS/3 ML VIAL SQ SCH ×3 (12:20→23:10)
[2016-10-12] MEDS: *HR* Heparin 5,000 UNIT/ML VIAL SQ SCH (17:12)
--- NOTE | 2016-10-12 17:35 | Electrocardiograph Report ---
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
[2016-10-12] MEDS: Acetaminophen 325 MG TABLET PO PRN (23:08)
[2016-10-13] MEDS: Benzonatate 100 MG CAPSULE PO PRN ×2 (03:01→17:57)
[2016-10-13] MEDS: Ipratropium/Albuterol Neb 3 ML IH SCH ×4 (03:06→22:20)
[2016-10-13 03:48] LABS: Hematocrit 35.5 % (35.3-44.9); Hemoglobin 11.5 g/dL (11.5-15.4); Lymphocytes # 2.2 K/mcL (0.6-4.6); Mean Corpuscular HGB Conc 32.4 g/dL (31.6-35.5); Mean Corpuscular Hemoglobin 30.5 pg (28.0-33.3); Mean Corpuscular Volume 94.2 fL (83.0-100.0); Platelet Count 367 K/mcL (140-400); Red Blood Count 3.77 M/mcL (3.82-4.97); Red Cell Distribution Width 13.8 % (11.5-14.5)
[2016-10-13 03:59] LABS: BUN/Creatinine Ratio 19 (6-26); Blood Urea Nitrogen 13 mg/dL (7-20); Calcium 9.2 mg/dL (8.6-10.8); Carbon Dioxide 28 mEq/L (19-29); Chloride 103 mEq/L (98-109); Glucose 208 mg/dL (70-99); Hemoglobin A1C 6.3 %; Magnesium 1.4 mg/dL (1.6-2.6); Osmolality,Calculated 298 (280-300); Phosphorous 2.2 mg/dL (2.3-4.7); Potassium 3.6 mEq/L (3.5-4.5); Sodium 141 mEq/L (136-145); eGFR For African Americans > 60 (> 60); eGFR For Non-African Americans > 60 (> 60)
[2016-10-13 04:20] LABS: Monocytes # 0.1 K/mcL (0.0-1.3); Neutrophils # 10.8 K/mcL (1.6-8.9); Platelet Estimate Normal (Normal)
--- NOTE | 2016-10-13 05:35 | Electrocardiograph Report ---
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
[2016-10-13] MEDS: 0.9 % Sodium Chloride 1,000 ML IVC SCH (06:17)
[2016-10-13] MEDS: *HR* Heparin 5,000 UNIT/ML VIAL SQ SCH ×2 (06:19→17:53)
[2016-10-13] MEDS ORDERED: Magnesium Sulfate 1 GM in D5% in Water 100 ML IVPB ONE (07:40)
[2016-10-13] MEDS ORDERED: Potassium Phosphate 44 MEQ in 0.9 % Sodium Chloride 250 ML IVPB ONE (07:40)
[2016-10-13] MEDS: Diltiazem CD (24hr) 120 MG CAPSULE PO SCH (08:23)
[2016-10-13] MEDS: methylPREDNISolone 125 MG/2 ML VIAL IVP SCH ×2 (08:25→17:53)
[2016-10-13] MEDS: Famotidine 20 MG TABLET PO SCH ×2 (08:25→20:58)
[2016-10-13] MEDS: Levofloxacin 750 MG/150 ML 750 MG/150 ML BAG IVPB SCH (08:30)
[2016-10-13] MEDS: Insulin LISPRO 300 UNITS/3 ML VIAL SQ SCH ×4 (08:41→20:57)
--- NOTE | 2016-10-13 08:56 | Internal Med Progress Note ---
Date of Encounter: 10/13/16 Time of Encounter: 08:50 - Subjective Interval history: Patient seen and examined at bedside. Sitting in bed and reports of feeling better. States her breathing is improved but she wasn't able to get much sleep last night. Noted to remain hypertensive but denies any headache, lightheadedness, dizziness, chest pain, sob, fever, or chills at this time. Assessment and Plan (1) Sepsis Current visit: Yes Status: Acute -Likely secondary PNA -Influenza screen negative -Will continue Levaquin at this time -follow up blood cultures, urine cultures -will continue to closely monitor -Leukocytosis persists however bandemia improving therefore will continue current abx management (2) Acute exacerbation of chronic obstructive airways disease Current visit: Yes Status: Acute -Likely secondary to PNA -Will continue IV steroids, bronchodilator support, and IV abx at this time -O2 supplementation as needed -ABG as needed -Bipap as needed (3) UTI (urinary tract infection) Current visit: Yes Status: Acute -UA not consistent with UTI -Patient asymptomatic at this time -will continue abx for PNA (4) New onset a-fib Current visit: Yes Status: Acute -Cardiology eval appreciated -EKG and tele strips consistent with MAT rather than AFib -Metoprolol discontinued and Cardizem started by cardiology -Rate currently controlled with Cardizem, will continue -2D echo noted -will continue telemonitoring -no anticoagulation needed at this time given the etiology of the arrhythmia. (5) Electrolyte abnormalities Current visit: Yes Status: Acute -Hypomagenesemia and Hypophosphatemia -Mg and Phos supplemented -will continue to monitor electrolytes and replace as needed (6) DVT prophylaxis Current visit: Yes Status: Acute -Heparin SQ (7) Hypertension: -BP not controlled -Increased Lisinopril to 20mg PO qd -Added Amlodipine 5mg PO qd -continue Hydralazine 10mg IV q6h PRN SBP>160 -will continue to closely monitor Will obtain PT eval - Constitutional Vitals: Temp Pulse Resp BP Pulse Ox 98.3 F 80 16 192/76 95 10/13/16 07:40 10/13/16 07:40 10/13/16 07:40 10/13/16 07:40 10/13/16 07:40 General appearance: Present: cooperative, A&O X 3, pleasant, no acute distress, obese, answers questions appropriately - Head Head exam: Present: atraumatic, normocephalic - Eye Eye exam: Present: normal appearance, conjuntiva pink, sclera anicteric - Respiratory Respiratory exam: Present: decreased breath sounds. Absent: respiratory distress, wheezes - Cardiovascular Cardiovascular exam: Present: RRR, +S1, +S2. Absent: diastolic murmur, gallop, rubs, systolic murmur - GI/Abdominal GI/Abdominal exam: Present: normal bowel sounds, soft, no peritoneal signs. Absent: distended, tenderness - Extremities Exam Extremities exam: Present: warm, radial pulses palpable and symetrical. Absent : calf tenderness, cyanotic, pedal edema - Neurological Exam Neurological exam: Present: alert, oriented X3 - Psychiatric Psychiatric exam: Present: normal affect, normal mood Internal Medicine: Result - Labs CBC & Chem 7: 10/13/16 03:44 10/13/16 03:44 Labs: Short CBC 10/13/16 Range/Units 03:44 WBC 13.5 H (4.3-11.1) K/mcL Hgb 11.5 (11.5-15.4) g/dL Hct 35.5 (35.3-44.9) % Plt Count 367 (140-400) K/mcL Neutrophils # 10.8 H (1.6-8.9) K/mcL BMP 10/13/16 03:44 Sodium 141 Potassium 3.6 D Chloride 103 Carbon Dioxide 28 BUN 13 Creatinine 0.68 Glucose 208 H Calcium 9.2 Cardiac Enzymes 10/12/16 Range/Units 11:43 Troponin I 0.01 (0-0.03) ng/mL - ABG Interpretation ABG results: PT/INR, D-dimer PT 13.5 Seconds (9.4-12.1) H 10/11/16 22:59 - VTE Reasons for not Prescribing Prophylaxis: Not indicated-Anticoagulated or INR therapeutic Consult Discharge Plan - Plan Referrals: Darrion Andersen [Non-Partnered Physician] - NO,PCP [Primary Care Provider] -
[2016-10-13] MEDS ORDERED: amLODIPine 5 MG TABLET PO SCH (09:00)
--- NOTE | 2016-10-13 13:39 | Electrocardiograph Report ---
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
[2016-10-13] MEDS: GuaiFENesin Liq 200 MG/10 ML UDC PO PRN (20:57)
[2016-10-14] MEDS: Benzonatate 100 MG CAPSULE PO PRN ×3 (02:16→20:07)
[2016-10-14] MEDS: Ipratropium/Albuterol Neb 3 ML IH SCH ×4 (04:42→22:37)
[2016-10-14] MEDS: *HR* Heparin 5,000 UNIT/ML VIAL SQ SCH ×2 (05:22→16:43)
[2016-10-14] MEDS: methylPREDNISolone 125 MG/2 ML VIAL IVP SCH ×2 (05:22→16:42)
[2016-10-14 05:27] LABS: Hematocrit 36.4 % (35.3-44.9); Hemoglobin 11.9 g/dL (11.5-15.4); Mean Corpuscular HGB Conc 32.7 g/dL (31.6-35.5); Mean Corpuscular Hemoglobin 30.6 pg (28.0-33.3); Mean Corpuscular Volume 93.6 fL (83.0-100.0); Mean Platelet Volume 8.9 fL (9.4-12.4); Platelet Count 371 K/mcL (140-400); Red Blood Count 3.89 M/mcL (3.82-4.97)
[2016-10-14 05:52] LABS: BUN/Creatinine Ratio 17 (6-26); Blood Urea Nitrogen 12 mg/dL (7-20); Calcium 9.4 mg/dL (8.6-10.8); Carbon Dioxide 28 mEq/L (19-29); Chloride 103 mEq/L (98-109); Glucose 203 mg/dL (70-99); Magnesium 1.7 mg/dL (1.6-2.6); Osmolality,Calculated 300 (280-300); Phosphorous 3.2 mg/dL (2.3-4.7); Potassium 4.1 mEq/L (3.5-4.5); Sodium 142 mEq/L (136-145); eGFR For African Americans > 60 (> 60); eGFR For Non-African Americans > 60 (> 60)
[2016-10-14 06:24] LABS: Lymphocytes # 4.2 K/mcL (0.6-4.6); Neutrophils # 10.5 K/mcL (1.6-8.9)
[2016-10-14 06:25] LABS: Platelet Estimate Normal (Normal)
--- NOTE | 2016-10-14 08:48 | Internal Med Progress Note ---
Date of Encounter: 10/14/16 Time of Encounter: 08:43 - Subjective Interval history: Patient seen and examined at bedside. States of feeling better compared to previous day, states her cough is better than yesterday. Remains hypertensive. Denies any discomfort at this time. 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 consultation requested for placement Assessment and Plan (1) Sepsis Current visit: Yes Status: Acute -Likely secondary PNA -Influenza screen negative -Will continue Levaquin at this time -follow up blood cultures, urine cultures -will continue to closely monitor -Leukocytosis persists however bandemia resolved therefore will continue current abx management (2) Acute exacerbation of chronic obstructive airways disease Current visit: Yes Status: Acute -Likely secondary to PNA -Will continue IV steroids, bronchodilator support, and IV abx at this time -O2 supplementation as needed, monitor O2 sat, goal O2 sat: 89-92% -ABG as needed -Bipap as needed -Guaifenesin and Tessalon prn cough (3) UTI (urinary tract infection) Current visit: Yes Status: Acute -UA not consistent with UTI -Patient asymptomatic at this time -will continue abx for PNA (4) New onset a-fib Current visit: Yes Status: Acute -Cardiology eval appreciated -EKG and tele strips consistent with MAT rather than AFib -Rate controlled with Cardizem -Added Metoprolol for persistent HTN -2D echo noted -will continue telemonitoring -no anticoagulation needed at this time given the etiology of the arrhythmia. (5) Electrolyte abnormalities Current visit: Yes Status: Acute -Resolved -will continue to monitor electrolytes and replace as needed (6) DVT prophylaxis Current visit: Yes Status: Acute -Heparin SQ (7) Hypertension: -BP not controlled -Continue Lisinopril to 20mg PO qd, Metoprolol 12.5mg PO q12h -Increased Amlodipine to 10mg PO qd -Will monitor vitals q4h with close monitoring of BP -goal BP<150/90 -continue Hydralazine 10mg IV q6h PRN SBP>160 (8) Hyperglycemia: Noted to have AIC of 6.3 in prediabetic range Will increase to medium dose insulin ss algorithm given current BG readings continue to monitor FS and BG. - Constitutional Vitals: Temp Pulse Resp BP Pulse Ox 98.2 F 80 18 161/51 93 10/14/16 07:25 10/14/16 07:25 10/14/16 07:25 10/14/16 07:25 10/14/16 07:25 General appearance: Present: cooperative, A&O X 3, pleasant, no acute distress, obese, answers questions appropriately - Head Head exam: Present: atraumatic, normocephalic - Eye Eye exam: Present: normal appearance, conjuntiva pink, sclera anicteric - Respiratory Respiratory exam: Absent: respiratory distress, wheezes Additional comments: equal air entry bilaterally - Cardiovascular Cardiovascular exam: Present: RRR, +S1, +S2. Absent: diastolic murmur, gallop, rubs, systolic murmur - GI/Abdominal GI/Abdominal exam: Present: normal bowel sounds, soft, no peritoneal signs. Absent: distended, tenderness - Extremities Exam Extremities exam: Present: warm, radial pulses palpable and symetrical. Absent : calf tenderness, cyanotic, pedal edema - Neurological Exam Neurological exam: Present: alert, oriented X3 - Psychiatric Psychiatric exam: Present: normal affect, normal mood Internal Medicine: Result - Labs CBC & Chem 7: 10/14/16 05:05 10/14/16 05:05 Labs: Short CBC 10/14/16 Range/Units 05:05 WBC 15.0 H (4.3-11.1) K/mcL Hgb 11.9 (11.5-15.4) g/dL Hct 36.4 (35.3-44.9) % Plt Count 371 (140-400) K/mcL Neutrophils # 10.5 H (1.6-8.9) K/mcL BMP 10/14/16 05:05 Sodium 142 Potassium 4.1 Chloride 103 Carbon Dioxide 28 BUN 12 Creatinine 0.70 Glucose 203 H Calcium 9.4 - ABG Interpretation ABG results: PT/INR, D-dimer PT 13.5 Seconds (9.4-12.1) H 10/11/16 22:59 - VTE Reasons for not Prescribing Prophylaxis: Not indicated-Anticoagulated or INR therapeutic Consult Discharge Plan - Plan Referrals: Darrion Andersen [Non-Partnered Physician] - NO,PCP [Primary Care Provider] -
[2016-10-14] MEDS: amLODIPine 5 MG TABLET PO SCH ×2 (09:03→09:04)
[2016-10-14] MEDS: Diltiazem CD (24hr) 120 MG CAPSULE PO SCH (09:03)
[2016-10-14] MEDS: Famotidine 20 MG TABLET PO SCH ×2 (09:03→20:06)
[2016-10-14] MEDS: Levofloxacin 750 MG/150 ML 750 MG/150 ML BAG IVPB SCH (09:04)
[2016-10-14] MEDS: Insulin LISPRO 300 UNITS/3 ML VIAL SQ SCH ×3 (13:13→20:07)
[2016-10-15 03:51] LABS: Basophils # 0.1 K/mcL (0.0-0.2); Basophils % 0.8 %; Hematocrit 35.6 % (35.3-44.9); Hemoglobin 11.6 g/dL (11.5-15.4); Immature Granulocytes % 7.5 % (0-4); Lymphocytes % 17.8 %; Mean Corpuscular HGB Conc 32.6 g/dL (31.6-35.5); Mean Corpuscular Hemoglobin 30.3 pg (28.0-33.3); Mean Platelet Volume 9.1 fL (9.4-12.4); Monocytes # 0.9 K/mcL (0.0-1.3); Monocytes % 5.2 %; Neutrophils # 11.5 K/mcL (1.6-8.9); Platelet Count 389 K/mcL (140-400); Red Blood Count 3.83 M/mcL (3.82-4.97); Red Cell Distribution Width 13.9 % (11.5-14.5); Segmented Neutrophils % 68.7 %
[2016-10-15 04:07] LABS: BUN/Creatinine Ratio 26 (6-26); Blood Urea Nitrogen 19 mg/dL (7-20); Carbon Dioxide 31 mEq/L (19-29); Chloride 103 mEq/L (98-109); Glucose 213 mg/dL (70-99); Magnesium 1.4 mg/dL (1.6-2.6); Osmolality,Calculated 303 (280-300); Phosphorous 3.3 mg/dL (2.3-4.7); Potassium 3.3 mEq/L (3.5-4.5); Sodium 142 mEq/L (136-145); eGFR For African Americans > 60 (> 60); eGFR For Non-African Americans > 60 (> 60)
[2016-10-15] MEDS: Ipratropium/Albuterol Neb 3 ML IH SCH ×4 (04:12→22:33)
[2016-10-15 04:19] LABS: Platelet Estimate Normal (Normal)
[2016-10-15] MEDS: *HR* Heparin 5,000 UNIT/ML VIAL SQ SCH ×2 (06:16→17:01)
[2016-10-15] MEDS: methylPREDNISolone 125 MG/2 ML VIAL IVP SCH ×2 (06:16→17:02)
[2016-10-15] MEDS: amLODIPine 5 MG TABLET PO SCH (08:44)
[2016-10-15] MEDS: Diltiazem CD (24hr) 120 MG CAPSULE PO SCH (08:44)
[2016-10-15] MEDS: Levofloxacin 750 MG/150 ML 750 MG/150 ML BAG IVPB SCH (08:45)
[2016-10-15] MEDS: Famotidine 20 MG TABLET PO SCH ×2 (08:45→21:44)
[2016-10-15] MEDS: Insulin LISPRO 300 UNITS/3 ML VIAL SQ SCH ×4 (08:46→21:44)
[2016-10-15] MEDS ORDERED: Magnesium Sulfate 2 GM in D5% in Water 100 ML IVPB ONE (08:59)
[2016-10-15] MEDS ORDERED: Vancomycin 1,000 MG in D5% in Water 250 ML IVPB SCH (10:00)
[2016-10-15] MEDS ORDERED: Vancomycin 1,500 MG in D5% in Water 250 ML IVPB ONE (10:00)
--- NOTE | 2016-10-15 11:52 | Internal Med Progress Note ---
Date of Encounter: 10/15/16 Time of Encounter: 11:15 - Subjective Interval history: Patient seen and examined at bedside. States of feeling better compared to previous day, states her cough is better than yesterday. BP better controlled. Reports of having history of dry mouth for which she takes some medication at home. Will verify and restart after verification. PT eval recommended SNF placement pick pack worker consultation noted, will need preauthorization. Assessment and Plan (1) Sepsis Current visit: Yes Status: Acute -Likely secondary PNA -Influenza screen negative -Will continue Levaquin at this time -Will add Vancomycin given worsening leukocytosis -follow up blood cultures, urine cultures -will continue to closely monitor -Leukocytosis persists however bandemia resolved therefore will continue abx management (2) Acute exacerbation of chronic obstructive airways disease Current visit: Yes Status: Acute -Likely secondary to PNA -Will continue IV steroids, bronchodilator support, and IV abx at this time -O2 supplementation as needed, monitor O2 sat, goal O2 sat: 89-92% -ABG as needed -Bipap as needed -Guaifenesin and Tessalon prn cough (3) UTI (urinary tract infection) Current visit: Yes Status: Acute -UA not consistent with UTI -Patient asymptomatic at this time -will continue abx for PNA (4) New onset a-fib Current visit: Yes Status: Acute -Cardiology eval appreciated -EKG and tele strips consistent with MAT rather than AFib -Rate controlled with Cardizem -Added Metoprolol for persistent HTN -2D echo noted -will continue telemonitoring -no anticoagulation needed at this time given the etiology of the arrhythmia. (5) Electrolyte abnormalities Current visit: Yes Status: Acute -Hypokalemia and Hypomagenesemia noted -K and Mg supplemented -will continue to monitor electrolytes and replace as needed (6) DVT prophylaxis Current visit: Yes Status: Acute -Heparin SQ (7) Hypertension: -BP better controlled -Continue Lisinopril to 20mg PO qd, Metoprolol 12.5mg PO q12h, Amlodipine to 10mg PO qd -Will monitor vitals q4h with close monitoring of BP -goal BP<150/90 -continue Hydralazine 10mg IV q6h PRN SBP>160 (8) Hyperglycemia: Noted to have AIC of 6.3 in prediabetic range continue medium dose insulin ss algorithm given current BG readings continue to monitor FS and BG. - Constitutional Vitals: Temp Pulse Resp BP Pulse Ox 97.9 F 78 18 149/65 96 10/15/16 11:35 10/15/16 11:35 10/15/16 11:35 10/15/16 11:35 10/15/16 11:35 General appearance: Present: cooperative, A&O X 3, pleasant, no acute distress, obese, answers questions appropriately - Head Head exam: Present: atraumatic, normocephalic - Eye Eye exam: Present: PERRL, conjuntiva pink, sclera anicteric - Respiratory Respiratory exam: Present: decreased breath sounds. Absent: respiratory distress, wheezes - Cardiovascular Cardiovascular exam: Present: RRR, +S1, +S2. Absent: diastolic murmur, gallop, rubs, systolic murmur - GI/Abdominal GI/Abdominal exam: Present: normal bowel sounds, soft, no peritoneal signs. Absent: distended, tenderness - Extremities Exam Extremities exam: Present: warm, radial pulses palpable and symetrical. Absent : calf tenderness, cyanotic, pedal edema - Neurological Exam Neurological exam: Present: alert, oriented X3 - Psychiatric Psychiatric exam: Present: normal affect, normal mood Internal Medicine: Result - Labs CBC & Chem 7: 10/15/16 03:48 10/15/16 03:48 Labs: Short CBC 10/15/16 Range/Units 03:48 WBC 16.7 H (4.3-11.1) K/mcL Hgb 11.6 (11.5-15.4) g/dL Hct 35.6 (35.3-44.9) % Plt Count 389 (140-400) K/mcL Neutrophils # 11.5 H (1.6-8.9) K/mcL BMP 10/15/16 03:48 Sodium 142 Potassium 3.3 L Chloride 103 Carbon Dioxide 31 H BUN 19 Creatinine 0.74 Glucose 213 H Calcium 9.0 - ABG Interpretation ABG results: PT/INR, D-dimer PT 13.5 Seconds (9.4-12.1) H 10/11/16 22:59 - VTE Reasons for not Prescribing Prophylaxis: Not indicated-Anticoagulated or INR therapeutic Consult Discharge Plan - Plan Referrals: Darrion Andersen [Non-Partnered Physician] - NO,PCP [Primary Care Provider] -
[2016-10-15] MEDS: Benzonatate 100 MG CAPSULE PO PRN (17:02)
[2016-10-15] MEDS: Acetaminophen 325 MG TABLET PO PRN (17:02)
[2016-10-16] MEDS: Benzonatate 100 MG CAPSULE PO PRN (00:57)
[2016-10-16] MEDS: Ipratropium/Albuterol Neb 3 ML IH SCH ×4 (04:03→21:01)
[2016-10-16 04:20] LABS: Hematocrit 35.4 % (35.3-44.9); Hemoglobin 11.6 g/dL (11.5-15.4); Mean Corpuscular HGB Conc 32.8 g/dL (31.6-35.5); Mean Corpuscular Hemoglobin 30.5 pg (28.0-33.3); Mean Corpuscular Volume 93.2 fL (83.0-100.0); Platelet Count 409 K/mcL (140-400); Red Cell Distribution Width 13.5 % (11.5-14.5)
[2016-10-16 04:35] LABS: BUN/Creatinine Ratio 28 (6-26); Blood Urea Nitrogen 19 mg/dL (7-20); Calcium 8.9 mg/dL (8.6-10.8); Carbon Dioxide 33 mEq/L (19-29); Chloride 103 mEq/L (98-109); Glucose 171 mg/dL (70-99); Magnesium 1.7 mg/dL (1.6-2.6); Osmolality,Calculated 302 (280-300); Phosphorous 3.1 mg/dL (2.3-4.7); Potassium 3.3 mEq/L (3.5-4.5); Sodium 143 mEq/L (136-145); eGFR For African Americans > 60 (> 60); eGFR For Non-African Americans > 60 (> 60)
[2016-10-16 04:40] LABS: Lymphocytes # 2.2 K/mcL (0.6-4.6); Monocytes # 1.1 K/mcL (0.0-1.3); Neutrophils # 15.1 K/mcL (1.6-8.9)
[2016-10-16 04:41] LABS: Platelet Estimate Normal (Normal)
[2016-10-16 04:42] LABS: Reactive Lymphocytes Present (Not Present)
[2016-10-16] MEDS: *HR* Heparin 5,000 UNIT/ML VIAL SQ SCH ×2 (06:56→17:56)
[2016-10-16] MEDS: methylPREDNISolone 125 MG/2 ML VIAL IVP SCH (06:56)
--- NOTE | 2016-10-16 09:26 | Internal Med Progress Note ---
Date of Encounter: 10/16/16 Time of Encounter: 08:45 - Subjective Interval history: Patient seen and examined at bedside. Reports of improvement from previous day. Increase in WBC noted but clinically improving, likely reactive secondary to steroid therapy. Will d/c Solumedrol and start Prednisone. PT eval recommended SNF placement Discharge pending placement Assessment and Plan (1) Sepsis Current visit: Yes Status: Acute -Resolved -Likely secondary PNA -Influenza screen negative -Continue Abx for a total of 7 days. (Day 11/13) -follow up blood cultures -will continue to closely monitor -Leukocytosis persists however bandemia resolved therefore will continue abx management -Worsening of leukocytosis likely secondary to steroid therapy. Clinically improving. Afebrile and respiratory status improved. will continue to closely monitor (2) Acute exacerbation of chronic obstructive airways disease Current visit: Yes Status: Acute -Likely secondary to PNA -Will continue steroids, bronchodilator support, and IV abx at this time. Switch to oral Prednisone today -O2 supplementation as needed, monitor O2 sat, goal O2 sat: 89-92% -ABG as needed -Bipap as needed -Guaifenesin and Tessalon prn cough (3) UTI (urinary tract infection) Current visit: Yes Status: Acute -UA not consistent with UTI -Patient asymptomatic at this time -will continue abx for PNA (4) New onset a-fib Current visit: Yes Status: Acute -Cardiology eval appreciated -EKG and tele strips consistent with MAT rather than AFib -Rate controlled with Cardizem -Continue Metoprolol -2D echo noted -will continue telemonitoring -no anticoagulation needed at this time given the etiology of the arrhythmia. (5) Electrolyte abnormalities Current visit: Yes Status: Acute -Resolved -will continue to monitor electrolytes and replace as needed (6) DVT prophylaxis Current visit: Yes Status: Acute -Heparin SQ (7) Hypertension: -BP better controlled -Continue Lisinopril to 20mg PO qd, Metoprolol 12.5mg PO q12h, Amlodipine to 10mg PO qd -Will monitor vitals q4h with close monitoring of BP -goal BP<150/90 -continue Hydralazine 10mg IV q6h PRN SBP>160 (8) Hyperglycemia: Noted to have AIC of 6.3 in prediabetic range continue medium dose insulin ss algorithm given current BG readings continue to monitor FS and BG. - Constitutional Vitals: Temp Pulse Resp BP Pulse Ox 98.6 F 68 16 160/68 98 10/16/16 07:21 10/16/16 07:21 10/16/16 07:21 10/16/16 07:21 10/16/16 07:21 General appearance: Present: cooperative, A&O X 3, pleasant, no acute distress, obese, answers questions appropriately - Head Head exam: Present: atraumatic, normocephalic - Eye Eye exam: Present: normal appearance, conjuntiva pink, sclera anicteric - Respiratory Respiratory exam: Present: CTAB. Absent: accessory muscle use, rales, rhonchi, wheezes - Cardiovascular Cardiovascular exam: Present: RRR, +S1, +S2. Absent: diastolic murmur, gallop, rubs, systolic murmur - GI/Abdominal GI/Abdominal exam: Present: normal bowel sounds, soft, no peritoneal signs. Absent: distended, tenderness - Extremities Exam Extremities exam: Present: warm, radial pulses palpable and symetrical. Absent : calf tenderness, cyanotic, pedal edema - Neurological Exam Neurological exam: Present: alert, oriented X3 - Psychiatric Psychiatric exam: Present: normal affect, normal mood Internal Medicine: Result - Labs CBC & Chem 7: 10/16/16 04:10 10/16/16 04:10 Labs: Short CBC 10/16/16 Range/Units 04:10 WBC 18.4 H (4.3-11.1) K/mcL Hgb 11.6 (11.5-15.4) g/dL Hct 35.4 (35.3-44.9) % Plt Count 409 H (140-400) K/mcL Neutrophils # 15.1 H (1.6-8.9) K/mcL BMP 10/16/16 04:10 Sodium 143 Potassium 3.3 L Chloride 103 Carbon Dioxide 33 H BUN 19 Creatinine 0.67 Glucose 171 H Calcium 8.9 - ABG Interpretation ABG results: PT/INR, D-dimer PT 13.5 Seconds (9.4-12.1) H 10/11/16 22:59 - VTE Reasons for not Prescribing Prophylaxis: Not indicated-Anticoagulated or INR therapeutic Consult Discharge Plan - Plan Referrals: Darrion Andersen [Non-Partnered Physician] - Cony Coffman DO [Non-Partnered Physician] -
[2016-10-16] MEDS ORDERED: predniSONE 20 MG TABLET PO SCH (09:30)
[2016-10-16] MEDS: Diltiazem CD (24hr) 120 MG CAPSULE PO SCH (09:45)
[2016-10-16] MEDS: amLODIPine 5 MG TABLET PO SCH (09:46)
[2016-10-16] MEDS: Levofloxacin 750 MG/150 ML 750 MG/150 ML BAG IVPB SCH (09:46)
[2016-10-16] MEDS: Famotidine 20 MG TABLET PO SCH ×2 (09:46→20:53)
[2016-10-16] MEDS: Insulin LISPRO 300 UNITS/3 ML VIAL SQ SCH ×4 (09:47→20:54)
[2016-10-16] MEDS ORDERED: Vancomycin 1,250 MG in D5% in Water 250 ML IVPB SCH (10:00)
[2016-10-16] MEDS: GuaiFENesin Liq 200 MG/10 ML UDC PO PRN (20:53)
[2016-10-17] MEDS: Ipratropium/Albuterol Neb 3 ML IH SCH ×4 (03:16→22:03)
[2016-10-17] MEDS: predniSONE 20 MG TABLET PO SCH (05:18)
[2016-10-17] MEDS: *HR* Heparin 5,000 UNIT/ML VIAL SQ SCH ×2 (05:18→16:53)
[2016-10-17 05:23] LABS: Hematocrit 37.4 % (35.3-44.9); Hemoglobin 11.9 g/dL (11.5-15.4); Mean Corpuscular HGB Conc 31.8 g/dL (31.6-35.5); Mean Corpuscular Hemoglobin 30.1 pg (28.0-33.3); Mean Corpuscular Volume 94.4 fL (83.0-100.0); Platelet Count 419 K/mcL (140-400); Red Blood Count 3.96 M/mcL (3.82-4.97); Red Cell Distribution Width 13.4 % (11.5-14.5)
[2016-10-17 05:40] LABS: BUN/Creatinine Ratio 32 (6-26); Blood Urea Nitrogen 22 mg/dL (7-20); Calcium 8.7 mg/dL (8.6-10.8); Carbon Dioxide 28 mEq/L (19-29); Chloride 103 mEq/L (98-109); Glucose 115 mg/dL (70-99); Magnesium 1.4 mg/dL (1.6-2.6); Osmolality,Calculated 298 (280-300); Phosphorous 2.9 mg/dL (2.3-4.7); Potassium 3.4 mEq/L (3.5-4.5); Sodium 142 mEq/L (136-145); eGFR For African Americans > 60 (> 60); eGFR For Non-African Americans > 60 (> 60)
[2016-10-17 05:44] LABS: Neutrophils # 10.8 K/mcL (1.6-8.9)
[2016-10-17] MEDS ORDERED: Magnesium Sulfate 2 GM in D5% in Water 100 ML IVPB ONE (07:44)
[2016-10-17] MEDS: Insulin LISPRO 300 UNITS/3 ML VIAL SQ SCH ×4 (08:17→21:11)
[2016-10-17] MEDS: amLODIPine 5 MG TABLET PO SCH ×2 (09:28→09:30)
[2016-10-17] MEDS: Diltiazem CD (24hr) 120 MG CAPSULE PO SCH (09:30)
[2016-10-17] MEDS: Famotidine 20 MG TABLET PO SCH ×2 (09:31→21:18)
[2016-10-17] MEDS: Levofloxacin 750 MG/150 ML 750 MG/150 ML BAG IVPB SCH (10:50)
[2016-10-17] MEDS: Vancomycin 1,500 MG in D5% in Water 250 ML IVPB SCH (11:53)
--- NOTE | 2016-10-17 15:05 | Internal Med Progress Note ---
Date of Encounter: 10/17/16 Time of Encounter: 15:03 - Subjective Interval history: Patient seen and examined at bedside. Respiratory status improving, decrease in O2 demand noted. No overnight issues reported. PT eval recommended SNF placement Discharge pending placement Assessment and Plan (1) Sepsis Current visit: Yes Status: Acute -Resolved -Likely secondary PNA -Influenza screen negative -Continue Abx for a total of 7 days. (Day 6/7) -follow up blood cultures -will continue to closely monitor -Leukocytosis persists however bandemia resolved therefore will continue abx management -Worsening of leukocytosis likely secondary to steroid therapy. Clinically improving. Afebrile and respiratory status improved. will continue to closely monitor (2) Acute exacerbation of chronic obstructive airways disease Current visit: Yes Status: Acute -Likely secondary to PNA -Will continue steroids, bronchodilator support, and IV abx at this time. -O2 supplementation as needed, monitor O2 sat, goal O2 sat: 89-92% -ABG as needed -Bipap as needed -Guaifenesin and Tessalon prn cough (3) UTI (urinary tract infection) Current visit: Yes Status: Acute -UA not consistent with UTI -Patient asymptomatic at this time -will continue abx for PNA (4) New onset a-fib Current visit: Yes Status: Acute -Cardiology eval appreciated -EKG and tele strips consistent with MAT rather than AFib -Rate controlled with Cardizem -Continue Metoprolol -2D echo noted -will continue telemonitoring -no anticoagulation needed at this time given the etiology of the arrhythmia. (5) Electrolyte abnormalities Current visit: Yes Status: Acute -Hypokalemia, Hypomagnesmia -K, Mg supplemented -will continue to monitor electrolytes and replace as needed (6) DVT prophylaxis Current visit: Yes Status: Acute -Heparin SQ (7) Hypertension: -BP better controlled -Continue Lisinopril to 20mg PO qd, Metoprolol 12.5mg PO q12h, Amlodipine to 10mg PO qd -Will monitor vitals q4h with close monitoring of BP -goal BP<150/90 -continue Hydralazine 10mg IV q6h PRN SBP>160 (8) Hyperglycemia: Noted to have AIC of 6.3 in prediabetic range continue medium dose insulin ss algorithm given current BG readings continue to monitor FS and BG. - Constitutional Vitals: Temp Pulse Resp BP Pulse Ox 97.5 F L 71 20 122/57 93 10/17/16 11:04 10/17/16 11:04 10/17/16 11:04 10/17/16 11:04 10/17/16 11:04 General appearance: Present: cooperative, A&O X 3, pleasant, no acute distress, obese, answers questions appropriately - Head Head exam: Present: atraumatic, normocephalic - Eye Eye exam: Present: normal appearance, conjuntiva pink, sclera anicteric - Respiratory Respiratory exam: Absent: respiratory distress, wheezes - Cardiovascular Cardiovascular exam: Present: RRR, +S1, +S2. Absent: diastolic murmur, gallop, rubs, systolic murmur - GI/Abdominal GI/Abdominal exam: Present: normal bowel sounds, soft, no peritoneal signs. Absent: distended, tenderness - Extremities Exam Extremities exam: Present: warm, radial pulses palpable and symetrical. Absent : calf tenderness, pedal edema - Neurological Exam Neurological exam: Present: alert, oriented X3 - Psychiatric Psychiatric exam: Present: normal affect, normal mood Internal Medicine: Result - Labs CBC & Chem 7: 10/17/16 04:48 10/17/16 04:48 Labs: Short CBC 10/17/16 Range/Units 04:48 WBC 16.8 H (4.3-11.1) K/mcL Hgb 11.9 (11.5-15.4) g/dL Hct 37.4 (35.3-44.9) % Plt Count 419 H (140-400) K/mcL Neutrophils # 10.8 H (1.6-8.9) K/mcL BMP 10/17/16 04:48 Sodium 142 Potassium 3.4 L Chloride 103 Carbon Dioxide 28 BUN 22 H Creatinine 0.69 Glucose 115 H Calcium 8.7 - ABG Interpretation ABG results: PT/INR, D-dimer PT 13.5 Seconds (9.4-12.1) H 10/11/16 22:59 - VTE Reasons for not Prescribing Prophylaxis: Not indicated-Anticoagulated or INR therapeutic Consult Discharge Plan - Plan Referrals: Darrion Andersen [Non-Partnered Physician] - Cony Coffman DO [Non-Partnered Physician] -
[2016-10-17] MEDS: GuaiFENesin Liq 200 MG/10 ML UDC PO PRN (15:06)
[2016-10-17] MEDS: Benzonatate 100 MG CAPSULE PO PRN (21:20)
[2016-10-18] MEDS: Ipratropium/Albuterol Neb 3 ML IH SCH ×4 (04:41→21:05)
[2016-10-18 04:46] LABS: Hematocrit 37.3 % (35.3-44.9); Hemoglobin 12.1 g/dL (11.5-15.4); Mean Corpuscular HGB Conc 32.4 g/dL (31.6-35.5); Mean Corpuscular Hemoglobin 30.6 pg (28.0-33.3); Mean Corpuscular Volume 94.2 fL (83.0-100.0); Platelet Count 444 K/mcL (140-400); Red Blood Count 3.96 M/mcL (3.82-4.97); Red Cell Distribution Width 13.7 % (11.5-14.5)
[2016-10-18 05:17] LABS: Blood Urea Nitrogen 21 mg/dL (7-20); Carbon Dioxide 20 mEq/L (19-29); Chloride 106 mEq/L (98-109); Glucose 148 mg/dL (70-99); Magnesium 2.1 mg/dL (1.6-2.6); Osmolality,Calculated 294 (280-300); Phosphorous 3.1 mg/dL (2.3-4.7); Sodium 139 mEq/L (136-145)
[2016-10-18] MEDS: *HR* Heparin 5,000 UNIT/ML VIAL SQ SCH ×2 (05:17→16:56)
[2016-10-18] MEDS: predniSONE 20 MG TABLET PO SCH (05:18)
[2016-10-18 05:23] LABS: Potassium 4.8 mEq/L (3.5-4.5)
[2016-10-18 05:32] LABS: BUN/Creatinine Ratio 28 (6-26); Calcium 8.9 mg/dL (8.6-10.8); eGFR For African Americans > 60 (> 60); eGFR For Non-African Americans > 60 (> 60)
[2016-10-18 05:36] LABS: Lymphocytes # 5.6 K/mcL (0.6-4.6); Monocytes # 0.4 K/mcL (0.0-1.3); Neutrophils # 11.2 K/mcL (1.6-8.9)
[2016-10-18 05:37] LABS: Large Platelets Present (Not Present); Macrocytosis Present (Not Present); Polychromasia 1+ (Not Present)
[2016-10-18] MEDS ORDERED: Aminoglycoside Consult 1 EACH MC ONE (08:06)
[2016-10-18] MEDS: Insulin LISPRO 300 UNITS/3 ML VIAL SQ SCH ×4 (08:22→21:59)
[2016-10-18] MEDS: Diltiazem CD (24hr) 120 MG CAPSULE PO SCH (08:22)
[2016-10-18] MEDS: Levofloxacin 750 MG/150 ML 750 MG/150 ML BAG IVPB SCH (08:22)
[2016-10-18] MEDS: amLODIPine 5 MG TABLET PO SCH (08:23)
[2016-10-18] MEDS: Famotidine 20 MG TABLET PO SCH ×2 (08:23→21:59)
[2016-10-18] MEDS: Vancomycin 1,500 MG in D5% in Water 250 ML IVPB SCH (11:30)
--- NOTE | 2016-10-18 13:23 | Internal Med Progress Note ---
Date of Encounter: 10/18/16 Time of Encounter: 09:45 - Assessment and plan (1) Sepsis Current Visit: Yes Status: Acute Assessment and plan: From possible pneumonia. No organism identified. WBC count 17.5. Likely related to his use of steroids. Continue current management. Qualifiers: Sepsis type: sepsis due to unspecified organism Qualified Code(s): A41.9 - Sepsis, unspecified organism (2) Acute exacerbation of chronic obstructive airways disease Current Visit: Yes Status: Acute Assessment and plan: Patient having shortness of breath and bronchospasm today. Continue bronchodilators as scheduled. Moderate risk for complications. On oral prednisone. (3) Hypertension Current Visit: Yes Status: Chronic Assessment and plan: Blood pressure is well controlled Qualifiers: Hypertension type: essential hypertension Qualified Code(s): I10 - Essential (primary) hypertension (4) Hyperglycemia Current Visit: Yes Status: Acute Assessment and plan: Sugars remain elevated. We will adjust insulin regimen accordingly. (5) DVT prophylaxis Current Visit: Yes Status: Acute (6) Multifocal atrial tachycardia Current Visit: Yes Status: Resolved - Subjective Interval history: Patient complaining of shortness of breath and wheezing. Denies any chest pain or hemoptysis. No nausea or vomiting. Tolerating oral diet well. - Constitutional Vitals: Temp Pulse Resp BP Pulse Ox 98.3 F 73 18 118/61 95 10/18/16 11:36 10/18/16 11:36 10/18/16 11:36 10/18/16 11:36 10/18/16 11:36 General appearance: Present: cooperative, mild distress, A&O X 3, pleasant, obese, answers questions appropriately - Neck Neck exam general surgery: Present: supple, trachea midline. Absent: lymphadenopathy - Respiratory Respiratory exam: Present: prolonged expiratory phase, wheezes. Absent: accessory muscle use, rales, rhonchi - Cardiovascular Cardiovascular exam: Present: RRR, +S1, +S2. Absent: diastolic murmur, gallop, rubs, systolic murmur - GI/Abdominal GI/Abdominal exam: Present: normal bowel sounds, soft, no peritoneal signs. Absent: distended, tenderness - Extremities Exam Extremities exam: Present: warm, radial pulses palpable and symetrical. Absent : calf tenderness, cyanotic, pedal edema - Skin Skin exam: Present: dry, intact Internal Medicine: Result - Labs CBC & Chem 7: 10/18/16 04:36 10/18/16 04:36 Labs: Short CBC 10/18/16 Range/Units 04:36 WBC 17.5 H (4.3-11.1) K/mcL Hgb 12.1 (11.5-15.4) g/dL Hct 37.3 (35.3-44.9) % Plt Count 444 H (140-400) K/mcL Neutrophils # 11.2 H (1.6-8.9) K/mcL BMP 10/18/16 04:36 Sodium 139 Potassium 4.8 H D Chloride 106 Carbon Dioxide 20 BUN 21 H Creatinine 0.74 Glucose 148 H Calcium 8.9 - ABG Interpretation ABG results: PT/INR, D-dimer PT 13.5 Seconds (9.4-12.1) H 10/11/16 22:59 - VTE Reasons for not Prescribing Prophylaxis: Not indicated-Anticoagulated or INR therapeutic Consult Discharge Plan - Plan Referrals: Darrion Andersen [Non-Partnered Physician] - Cony Coffman DO [Non-Partnered Physician] - - Attending Attestation This document has been at least partially created by [employer] recognition technology by Dr. Garcia. Errors in grammar, wording or other phrases may exist. If errors are found after the documentation is signed, they will be addressed individually in the addendum section of this document when appropriate.
[2016-10-19] MEDS: Ipratropium/Albuterol Neb 3 ML IH SCH ×4 (03:32→21:30)
[2016-10-19 04:50] LABS: Hematocrit 38.3 % (35.3-44.9); Hemoglobin 12.4 g/dL (11.5-15.4); Mean Corpuscular HGB Conc 32.4 g/dL (31.6-35.5); Mean Corpuscular Hemoglobin 30.3 pg (28.0-33.3); Mean Corpuscular Volume 93.6 fL (83.0-100.0); Mean Platelet Volume 8.7 fL (9.4-12.4); Platelet Count 469 K/mcL (140-400); Red Blood Count 4.09 M/mcL (3.82-4.97); Red Cell Distribution Width 13.6 % (11.5-14.5)
[2016-10-19 05:23] LABS: BUN/Creatinine Ratio 29 (6-26); Blood Urea Nitrogen 20 mg/dL (7-20); Carbon Dioxide 26 mEq/L (19-29); Chloride 105 mEq/L (98-109); Glucose 126 mg/dL (70-99); Osmolality,Calculated 296 (280-300); Sodium 141 mEq/L (136-145); eGFR For African Americans > 60 (> 60); eGFR For Non-African Americans > 60 (> 60)
[2016-10-19 06:00] LABS: Lymphocytes # 7.1 K/mcL (0.6-4.6); Neutrophils # 8.4 K/mcL (1.6-8.9)
[2016-10-19] MEDS: *HR* Heparin 5,000 UNIT/ML VIAL SQ SCH ×2 (06:12→16:47)
[2016-10-19] MEDS: predniSONE 20 MG TABLET PO SCH (06:13)
[2016-10-19] MEDS: Insulin LISPRO 300 UNITS/3 ML VIAL SQ SCH ×4 (07:46→21:33)
[2016-10-19] MEDS: amLODIPine 5 MG TABLET PO SCH (08:24)
[2016-10-19] MEDS: Diltiazem CD (24hr) 120 MG CAPSULE PO SCH (08:24)
[2016-10-19] MEDS: Famotidine 20 MG TABLET PO SCH ×2 (08:24→21:34)
[2016-10-19] MEDS: Levofloxacin 750 MG/150 ML 750 MG/150 ML BAG IVPB SCH (08:26)
--- NOTE | 2016-10-19 08:58 | Discharge Summary ---
Date of Encounter: 10/19/16 Time of Encounter: 08:35 - Discharge Diagnosis (1) Sepsis Priority: Primary Status: Acute Qualifiers: Sepsis type: sepsis due to unspecified organism Qualified Code(s): A41.9 - Sepsis, unspecified organism (2) Acute exacerbation of chronic obstructive airways disease Priority: Secondary Status: Acute (3) Hypertension Priority: Secondary Status: Chronic Qualifiers: Hypertension type: essential hypertension Qualified Code(s): I10 - Essential (primary) hypertension (4) Hyperglycemia Priority: Secondary Status: Acute (5) DVT prophylaxis Priority: Secondary Status: Acute (6) Multifocal atrial tachycardia Priority: Secondary Status: Resolved - Discharge Medications Prescriptions: Budesonide/Formoterol 160/4.5 [Symbicort 160/4.5] 1 puff IH BIDR #1 hfa.aer.ad Levofloxacin 750 mg PO DAILY #5 tablet PredniSONE 10 mg PO DAILY 9 Days Home Medications: Bupropion HCl [Wellbutrin Xl] 300 mg PO DAILY 10/11/16 [History] Cevimeline HCl [Evoxac] 30 mg PO TID 10/11/16 [History] Cilostazol 50 mg PO BID 10/11/16 [History] Clopidogrel [Plavix] 75 mg PO DAILY 10/11/16 [History] Donepezil [Aricept] 10 mg PO Q48H 10/11/16 [History] Famotidine [Pepcid] 40 mg PO BID 10/11/16 [History] Hydroxyzine HCl 25 mg PO BID 10/11/16 [History] Medroxyprogesterone Acetate [Provera] 2.5 mg PO Q48H 10/11/16 [History] Melatonin 15 mg PO HS 10/11/16 [History] Montelukast [Singulair] 10 mg PO DAILY 10/11/16 [History] Nabumetone [Relafen] 500 mg PO BID 10/11/16 [History] Pioglitazone HCl/Metformin HCl [Actoplus Met 15 mg-500 mg Tab] 1 each PO BID 10/24 [History] Pravastatin Sodium [Pravachol] 40 mg PO HS 10/11/16 [History] Sertraline [Zoloft] 100 mg PO QPM 10/11/16 [History] Sertraline [Zoloft] 200 mg PO QAM 10/11/16 [History] Solifenacin Succinate [Vesicare] 10 mg PO DAILY 10/11/16 [History] Acetaminophen [Tylenol] 650 mg PO Q6HR PRN #0 tablet 10/19/16 [Rx] Amlodipine [Norvasc] 10 mg PO DAILY tablet 10/19/16 [Rx] Benzonatate [Tessalon] 100 mg PO TID PRN #0 capsule 10/19/16 [Rx] Budesonide/Formoterol 160/4.5 [Symbicort 160/4.5] 1 puff IH BIDR #1 hfa.aer.ad 10/19/16 [Rx] Diltiazem CD (24hr) [Cardizem CD] 120 mg PO DAILY cap.er.24h 10/19/16 [Rx] Ipratropium/Albuterol Neb [Duoneb] 3 ml IH [id number] PRN #0 inhsol 10/19/16 [Rx] Levofloxacin 750 mg PO DAILY #5 tablet 10/19/16 [Rx] Lisinopril [Zestril] 20 mg PO DAILY tablet 10/19/16 [Rx] Metoprolol [Lopressor] 25 mg PO BID tablet 10/19/16 [Rx] PredniSONE 10 mg PO DAILY 9 Days 10/19/16 [Rx] Insulin DETEMIR [Levemir] 5 unit SQ HS [id number] 10/20/16 [Rx] Allergies/Adverse Reactions: Allergies Penicillins Allergy (Verified 10/11/16 14:29) See Comments Date of admission: 10/11/16 22:09 Primary care physician: PCP NO Consults: 10/12/16 10:51 Consult to Invasive Line Access Team [CONS] Routine Reason for Consult: Limited access Line Type: EPIV 10/13/16 08:50 Consult to Occupational Therapy [CONS] Routine Comment: Evaluate, develop and implement POC Consult to Physical Therapy [CONS] Routine Comment: Evaluate, develop and implement POC 10/14/16 07:21 Consult to Special Needs Nanny [CONS] Stat Reason for SW Consult: placement to SNF Discharging clinician: Tomasa Garcia Anticipated date of discharge: 10/20/16 - Patient Status Disposition: Transfer SNF Condition: Good Functional capacity at discharge: uses cane/walker Overall status at discharge: patient is progressing back to baseline - Discharge Instructions Instructions: Prednisone (By mouth), Levofloxacin (By mouth), Budesonide/ Formoterol (By breathing), Chronic Obstructive Pulmonary Disease (DC), Sepsis ( DC), Pneumonia (DC) Follow Up With: Darrion Andersen [Non-Partnered Physician] - Cony Coffman DO [Non-Partnered Physician] - Additional Instructions: Follow-up with PCP in one week - Diet and Activity Activity: wear oxygen at all times Diet: diabetic diet, low fat, low cholesterol, low salt diet Hospital course: Ms. Wood is a 71 year old female with history of COPD, diabetes, hyperlipidemia and hypertension who was admitted With altered mental status and acute COPD exacerbation along with pneumonia/sepsis. She was treated for this with IV antibiotics, bronchodilator nebs and IV steroids. She also had what appeared to be new onset atrial fibrillation on presentation. Cardiology was consulted and they evaluated the patient and believed that the patient has multifocal atrial tachycardia. This has since resolved. Patient has slowly improved with this treatment plan. Her blood cultures have been negative. She is still requiring O2 supplementation. She was evaluated by physical therapy and recommended placement to skilled rehabilitation. She is awaiting insurance authorization and approval for discharge to skilled rehabilitation. She will complete antibiotic course and tapering course of steroids. - Time Spent with Patient Total time spent providing and/or coordinating discharge services: Greater than 30 minutes (40 min) - Constitutional Vitals: Temp Pulse Resp BP Pulse Ox 97.7 F 63 18 131/49 96 10/19/16 06:33 10/19/16 06:33 10/19/16 06:33 10/19/16 06:33 10/19/16 06:33 General appearance: Present: cooperative, mild distress, A&O X 3, pleasant, obese, answers questions appropriately - Respiratory Respiratory exam: Present: prolonged expiratory phase, rhonchi, wheezes. Absent : accessory muscle use, rales - GI/Abdominal GI/Abdominal exam: Present: normal bowel sounds, soft, no peritoneal signs. Absent: distended, tenderness - Extremities Exam Extremities exam: Present: warm, radial pulses palpable and symetrical. Absent : calf tenderness, cyanotic, pedal edema - Skin Skin exam: Present: dry, intact - VTE Reasons for not Prescribing Prophylaxis: Not indicated-Anticoagulated or INR therapeutic - Attending Attestation This document has been at least partially created by Dragon medical voice recognition technology by Dr. Garcia. Errors in grammar, wording or other phrases may exist. If errors are found after the documentation is signed, they will be addressed individually in the addendum section of this document when appropriate.
--- NOTE | 2016-10-19 09:03 | Physician Discharge Referral ---
ExtendedCare Referral Info Transfer To: [facility] Provider in Charge after Transfer: PCP - Diagnosis (1) Sepsis Priority: Primary Status: Acute (2) Acute exacerbation of chronic obstructive airways disease Status: Acute (3) Hypertension Priority: Secondary Status: Chronic (4) Hyperglycemia Priority: Secondary Status: Acute (5) DVT prophylaxis Priority: Secondary Status: Acute (6) Multifocal atrial tachycardia Priority: Secondary Status: Resolved Prognosis: Fair Aware of Diagnosis: Patient Aware of Prognosis: Patient - Transfer Medications Prescriptions: Budesonide/Formoterol 160/4.5 [Symbicort 160/4.5] 1 puff IH BIDR #1 hfa.aer.ad Levofloxacin 750 mg PO DAILY #5 tablet PredniSONE 10 mg PO DAILY 9 Days Home Medications: Bupropion HCl [Wellbutrin Xl] 300 mg PO DAILY 10/11/16 [History] Cevimeline HCl [Evoxac] 30 mg PO TID 10/11/16 [History] Cilostazol 50 mg PO BID 10/11/16 [History] Clopidogrel [Plavix] 75 mg PO DAILY 10/11/16 [History] Donepezil [Aricept] 10 mg PO Q48H 10/11/16 [History] Famotidine [Pepcid] 40 mg PO BID 10/11/16 [History] Hydroxyzine HCl 25 mg PO BID 10/11/16 [History] Medroxyprogesterone Acetate [Provera] 2.5 mg PO Q48H 10/11/16 [History] Melatonin 15 mg PO HS 10/11/16 [History] Montelukast [Singulair] 10 mg PO DAILY 10/11/16 [History] Nabumetone [Relafen] 500 mg PO BID 10/11/16 [History] Pioglitazone HCl/Metformin HCl [Actoplus Met 15 mg-500 mg Tab] 1 each PO BID 10/24 [History] Pravastatin Sodium [Pravachol] 40 mg PO HS 10/11/16 [History] Sertraline [Zoloft] 100 mg PO QPM 10/11/16 [History] Sertraline [Zoloft] 200 mg PO QAM 10/11/16 [History] Solifenacin Succinate [Vesicare] 10 mg PO DAILY 10/11/16 [History] Acetaminophen [Tylenol] 650 mg PO Q6HR PRN #0 tablet 10/19/16 [Rx] Amlodipine [Norvasc] 10 mg PO DAILY tablet 10/19/16 [Rx] Benzonatate [Tessalon] 100 mg PO TID PRN #0 capsule 10/19/16 [Rx] Budesonide/Formoterol 160/4.5 [Symbicort 160/4.5] 1 puff IH BIDR #1 hfa.aer.ad 10/19/16 [Rx] Diltiazem CD (24hr) [Cardizem CD] 120 mg PO DAILY cap.er.24h 10/19/16 [Rx] Ipratropium/Albuterol Neb [Duoneb] 3 ml IH [id number] PRN #0 inhsol 10/19/16 [Rx] Levofloxacin 750 mg PO DAILY #5 tablet 10/19/16 [Rx] Lisinopril [Zestril] 20 mg PO DAILY tablet 10/19/16 [Rx] Metoprolol [Lopressor] 25 mg PO BID tablet 10/19/16 [Rx] PredniSONE 10 mg PO DAILY 9 Days 10/19/16 [Rx] Allergies/Adverse Reactions: Allergies Penicillins Allergy (Verified 10/11/16 14:29) See Comments - Respiratory Orders Oxygen / L per min (2) Smoking Cessation: Smoking cessation has been advised. For more information, call the [place] Tobacco Quit Line at 0-157-SFUNNOW. - Ancillary Orders May consult with Dentist, [employer] Operations [employer], Director Of Physical Therapy PRN - Advance Directives Code Status: Full Code - Mobility Orders Other (per PT) - Rehabiliation Orders Rehab Potential: Good Rehab Orders: Evaluation for Physical Therapy, Evaluation for Occupational Therapy - Diet Orders No Added Salt (ARNOLD), Cardiac (and diabetic) CERTIFICATION: I certify that the transfer of the above named patient to an Extended Care Facility is necessary for the continuing treatment of the diagnosis listed. The above information is true and accurate reflection of patient's current condition. Confidential - Redisclosure prohibited without a patient's written consent.
[2016-10-20] MEDS: Ipratropium/Albuterol Neb 3 ML IH SCH ×3 (03:38→15:25)
[2016-10-20] MEDS: *HR* Heparin 5,000 UNIT/ML VIAL SQ SCH (06:10)
[2016-10-20] MEDS: predniSONE 20 MG TABLET PO SCH (06:11)
[2016-10-20] MEDS: Insulin LISPRO 300 UNITS/3 ML VIAL SQ SCH ×2 (07:49→12:05)
[2016-10-20] MEDS: Diltiazem CD (24hr) 120 MG CAPSULE PO SCH (09:32)
[2016-10-20] MEDS: Famotidine 20 MG TABLET PO SCH (09:33)
[2016-10-20] MEDS: amLODIPine 5 MG TABLET PO SCH (09:33)
[2016-10-20] MEDS: Levofloxacin 750 MG/150 ML 750 MG/150 ML BAG IVPB SCH (09:34)
[2016-10-20 11:48] VITALS: BP 130/66
[2016-10-20] MEDS ORDERED: predniSONE 20 MG TABLET PO SCH (14:24)
--- NOTE | 2016-10-20 14:24 | Internal Med Progress Note ---
Date of Encounter: 10/20/16 Time of Encounter: 14:22 - Assessment and plan (1) Sepsis Current Visit: Yes Status: Acute Assessment and plan: Complete antibiotic course. No organism identified. Likely due to underlying pneumonia. Patient has been discharged but awaiting placement. Qualifiers: Sepsis type: sepsis due to unspecified organism Qualified Code(s): A41.9 - Sepsis, unspecified organism (2) Acute exacerbation of chronic obstructive airways disease Current Visit: Yes Status: Acute Assessment and plan: Taper steroids. Continue bronchodilator treatments as needed. O2 supplementation (3) Hypertension Current Visit: Yes Status: Chronic Assessment and plan: Well-controlled Qualifiers: Hypertension type: essential hypertension Qualified Code(s): I10 - Essential (primary) hypertension (4) Hyperglycemia Current Visit: Yes Status: Acute Assessment and plan: Blood sugars remain elevated. Due to steroid use. Will add long-acting insulin. (5) DVT prophylaxis Current Visit: Yes Status: Acute (6) Multifocal atrial tachycardia Current Visit: Yes Status: Resolved - Subjective Interval history: Patient complains of dyspnea. No chest pain. No palpitations. No nausea or vomiting. Tolerating diet well. - Constitutional Vitals: Temp Pulse Resp BP Pulse Ox 98.4 F 62 17 130/66 95 10/20/16 11:47 10/20/16 11:47 10/20/16 11:47 10/20/16 11:47 10/20/16 11:47 General appearance: Present: cooperative, mild distress, A&O X 3, pleasant, obese, answers questions appropriately - Respiratory Respiratory exam: Present: prolonged expiratory phase, wheezes. Absent: accessory muscle use, rales, rhonchi - Cardiovascular Cardiovascular exam: Present: RRR, +S1, +S2. Absent: diastolic murmur, gallop, rubs, systolic murmur - Extremities Exam Extremities exam: Present: warm, radial pulses palpable and symetrical. Absent : calf tenderness, cyanotic, pedal edema - Neurological Exam Neurological exam: Present: oriented X3, no focal deficits. Absent: facial droop, speech deficit - Skin Skin exam: Present: dry, intact Internal Medicine: Result - Labs CBC & Chem 7: 10/19/16 04:31 10/19/16 04:31 - ABG Interpretation ABG results: PT/INR, D-dimer PT 13.5 Seconds (9.4-12.1) H 04/04/17 22:59 - VTE Reasons for not Prescribing Prophylaxis: Not indicated-Anticoagulated or INR therapeutic Consult Discharge Plan - Plan Instructions: Chronic Obstructive Pulmonary Disease (DC), Sepsis (DC), Pneumonia (DC) Additional Instructions: Follow-up with PCP in one week Referrals: Darrion Andersen [Non-Partnered Physician] - Cony Coffman DO [Non-Partnered Physician] - Prescriptions: Budesonide/Formoterol 160/4.5 [Symbicort 160/4.5] 1 puff IH BIDR #1 hfa.aer.ad Levofloxacin 750 mg PO DAILY #5 tablet PredniSONE 10 mg PO DAILY 9 Days - Attending Attestation This document has been at least partially created by [employer] recognition technology by Dr. Garcia. Errors in grammar, wording or other phrases may exist. If errors are found after the documentation is signed, they will be addressed individually in the addendum section of this document when appropriate.
[2016-10-20] MEDS ORDERED: Insulin DETEMIR 100 UNIT/ML X5UNITS SQ SCH (21:00)
[2016-10-21] MEDS ORDERED: levoFLOXacin 750 MG TABLET PO SCH (09:00)
== END 2016-10-20 16:08 | DRG 720 ==
LOC: EMEROO 14:23 → 2ANU 14:23 → SUATTDRO 22:09
PROVIDERS: ADMIT Nurse Practitioner Family; ATTEND Internal Medicine

== ENCOUNTER 2018-06-22 13:05 | Inpatient (IN) ==
--- NOTE | 2018-06-22 13:24 | Emergency Department Note ---
Disposition Clinical Impression: Wound infection, Right hip pain Hip fracture, right Qualifiers: Encounter type: sequela Fracture type: closed Qualified Code(s): S72.001S - Fracture of unspecified part of neck of right femur, sequela Cellulitis Qualifiers: Site of cellulitis: extremity Site of cellulitis of extremity: lower extremity Laterality: right Qualified Code(s): L03.115 - Cellulitis of right lower limb Anemia Qualifiers: Anemia type: unspecified type Qualified Code(s): D64.9 - Anemia, unspecified Disposition: Admitted As Inpatient Condition: Good Referrals: NONE,PCP [Primary Care Provider] - Forms: ED Satisfaction Letter Time of Disposition: 15:31 General Adult HPI - General Stated complaint: Right hip pain Time Seen by Provider: 06/22/18 13:07 Source: patient, EMS Mode of arrival: EMS Limitations: no limitations Nursing Notes Reviewed: Yes Vital Signs Reviewed: Yes - History of Present Illness HPI Narrative: Patient is a 72-year-old female that presents emergency department due to right hip pain as well as reports of having discharge from her surgical site. Patient states that she has been having hip pain ever since she had surgery on her hip. Patient states that this has not changed. Patient states that there was some er ythema and discharge from the surgical site so 1-2 days ago she was started on oral antibiotics. Patient has any fevers or chills. Patient has any vomiting or diarrhea. Patient states that she has not had any difficulty with bowel movements or urination. Patient denies any chest pain or shortness of breath. Patient states that the pain is worse when she gets up and walks around. - Related Data Home Medications Medication Instructions Recorded Confirmed Bupropion HCl [Wellbutrin Xl] 300 mg PO DAILY 10/11/16 05/28/18 Cevimeline HCl [Evoxac] 30 mg PO TID 10/11/16 05/28/18 Cilostazol 50 mg PO BID 10/11/16 05/28/18 Clopidogrel [Plavix] 75 mg PO DAILY 10/11/16 05/28/18 Donepezil [Aricept] 10 mg PO Q48H 10/11/16 05/28/18 Famotidine [Pepcid] 40 mg PO BID 10/11/16 05/28/18 Medroxyprogesterone Acetate 2.5 mg PO Q48H 10/11/16 05/28/18 [Provera] Montelukast [Singulair] 10 mg PO DAILY 10/11/16 05/28/18 Nabumetone [Relafen] 500 mg PO BID 10/11/16 05/29/18 Pioglitazone HCl/Metformin HCl 1 each PO BID 10/11/16 05/29/18 [Actoplus Met 15 mg-500 mg Tab] Pravastatin Sodium [Pravachol] 40 mg PO HS 10/11/16 05/30/18 Sertraline [Zoloft] 200 mg PO QAM 10/11/16 05/28/18 Solifenacin Succinate [Vesicare] 10 mg PO DAILY 10/11/16 10/11/16 hydrOXYzine HCl [Hydroxyzine HCl] 25 mg PO BID 10/11/16 05/28/18 Melatonin 5 mg PO HS PRN 05/28/18 05/28/18 Umeclidinium [place] [Incruse 1 puff IH DAILY 05/28/18 05/28/18 Ellipta] Albuterol Sulfate [Albuterol 2 puff PO Q6H PRN 05/29/18 05/29/18 Inhaler] Exenatide [Byetta] 10 mcg SQ BID 05/29/18 05/29/18 Previous Rx's Medication Instructions Recorded Acetaminophen [Tylenol] 650 mg PO Q6HR PRN #0 tablet 10/19/16 Budesonide/Formoterol 160/4.5 1 puff IH BIDR #1 hfa.aer.ad 10/19/16 [Symbicort 160/4.5] Diltiazem CD (24hr) [Cardizem CD] 120 mg PO DAILY cap.er.24h 10/19/16 Ipratropium/Albuterol Neb [Duoneb] 3 ml IH [id number] PRN #0 inhsol 10/19/16 Lisinopril [Zestril] 20 mg PO DAILY tablet 10/19/16 Metoprolol [Lopressor] 25 mg PO BID tablet 10/19/16 amLODIPine [Norvasc] 10 mg PO DAILY tablet 10/19/16 Aspirin Enteric Coated [Aspirin EC] 325 mg PO BID 28 Days #56 mp. 06/04/18 Allergies Allergy/AdvReac Type Severity Reaction Status Date / Time Penicillins Allergy See Verified 06/22/18 13:28 Comments Sulfa (Sulfonamide Allergy Hives Verified 06/22/18 13:28 Antibiotics) codeine AdvReac Difficulty Verified 06/22/18 13:28 Breathing All systems ED: reviewed and negative except as stated. Constitutional: Denies: fever Cardiovascular: Denies: chest pain Respiratory: Denies: dyspnea Gastrointestinal: Denies: abdominal pain, nausea, vomiting Genitourinary: Denies: urgency, dysuria, frequency, hematuria Musculoskeletal: Reports: other (Right hip pain) Integumentary: Reports: other (Mild erythema and discharge from the surgical site on her right hip) Past Medical History - Past Medical History Medical history: Reports: COPD, diabetes, hyperlipidemia, hypertension Surgical history: Reports: non-contributory Psychiatric history: Reports: anxiety - Social History Smoking Status: Former smoker Smokeless Tobacco Status: No Alcohol use: Reports: none Drug use: Reports: none Physical Exam - General Limitations: no limitations General appearance: alert, in no apparent distress - Head Head exam: atraumatic, normocephalic - Eye Eye exam: Present: normal appearance, EOMI - Neck Neck exam: Present: normal inspection, full ROM, trachea midline - Respiratory Respiratory exam: Present: normal lung sounds bilaterally, respiratory distress, wheezes - Cardiovascular Cardiovascular exam: Present: regular rate, normal rhythm, normal heart sounds, +S1, +S2 - Abdominal Exam Abdominal exam: Present: soft, Non-Tender, normal bowel sounds - Extremities Exam Extremities exam: Present: other (Patient has 2 surgical sites on her right hip and mid thigh. There is mild erythema surrounding the superior incision site. There is mild serosanguineous discharge that is been onto the dressing without any active discharge at this time.) - Neurological Exam Neurological exam: Present: alert, oriented X3 - Psychiatric Psychiatric exam: Present: normal affect, normal mood - Skin Skin exam: Present: warm, dry, intact Course Vital Signs Temperature 98.8 F 06/22/18 13:21 Pulse Rate 64 06/22/18 13:21 Respiratory Rate 16 06/22/18 13:21 Blood Pressure 109/47 06/22/18 13:21 O2 Sat by Pulse Oximetry 95 06/22/18 13:21 Temperature 98.8 F 06/22/18 13:21 Pulse Rate 64 06/22/18 13:21 Respiratory Rate 16 06/22/18 13:21 Blood Pressure 109/47 06/22/18 13:21 O2 Sat by Pulse Oximetry 95 06/22/18 13:21 Oxygen Delivery Oxygen Delivery Room Air Medical Decision Making - MDM Narrative Medical decision making narrative: Due the patient presents emergency department with right hip pain and possible discharged obtain basic laboratory testings and an x-ray of the right hip. The x-ray did showed an ORIF of the right hip but no other findings at this time. Patient does not have an elevated white count. This have a history of chronic anemia. The attending Dr. Khalil spoke to the on-call orthopedic surgeon Dr. Mcgowan who recommended the patient be admitted to the hospital for further ev aluation and management. Recommend that she be started on broad-spectrum antibiotics. Patient was started on vancomycin and aztreonam due to the patient having a penicillin allergy and unable to be put on Zosyn. Patient has been stable throughout her stay here in the emergency department. Patient be admitted to the hospital this time for further evaluation and management. I called and spoke with the admitting hospitalist Dr. Garcia and she is except the patient to their service. Patient be admitted to the hospital this time for further evaluation and management. - Medical Records Medical records reviewed: Yes I reviewed the patient's medical records. - Lab Data Lab results reviewed: Yes I reviewed the patient's lab results. Result diagrams: 06/22/18 13:42 06/22/18 13:42 Lab Results 06/22/18 06/22/18 Range/Units 13:42 13:42 WBC 6.0 (4.3-11.1) K/mcL RBC 3.57 L (3.82-4.97) M/mcL Hgb 10.7 L (11.5-15.4) g/dL Hct 33.9 L (35.3-44.9) % MCV 95.0 (83.0-100.0) fL MCH 30.0 (28.0-33.3) pg MCHC 31.6 (31.6-35.5) g/dL RDW 14.0 (11.5-14.5) % Plt Count 342 (140-400) K/mcL MPV 9.2 L (9.4-12.4) fL Immature Gran % 0.2 (0-4) % Seg Neutrophils % 47.1 % Lymphocytes % 41.0 % Monocytes % 8.4 % Eosinophils % 2.8 % Basophils % 0.5 % Neutrophils # 2.8 (1.6-8.9) K/mcL Lymphocytes # 2.5 (0.6-4.6) K/mcL Monocytes # 0.5 (0.0-1.3) K/mcL Eosinophils # 0.2 (0.0-0.6) K/mcL Basophils # 0.0 (0.0-0.2) K/mcL Sodium 139 (136-145) mEq/L Potassium 4.6 (3.5-5.1) mEq/L Chloride 107 (98-107) mEq/L Carbon Dioxide 24 (23-29) mEq/L BUN 17 (8-23) mg/dL Creatinine 0.71 (0.60-1.20) mg/dL Est GFR ( Amer) > 60 (> 60) Est GFR (Non-Af Amer) > 60 (> 60) BUN/Creatinine Ratio 24 (6-26) Glucose 172 H (70-105) mg/dL Calculated Osmolality 294 (280-300) Calcium 9.3 (8.6-10.3) mg/dL - Radiology Data Radiology results reviewed: Yes I reviewed the patient's radiology results. Hip X-Ray 06/22/18 14:36 IMPRESSION: 1. ORIF of the right femoral intertrochanteric neck fracture with improved alignment. D/ / 06/22/2018 15:17:23 Mehdi Crouch MD / [facility] Interpreting Provider: Mehdi Crouch MD Attestation Statement - Attestation Attestation: I, Logan Khalil DO, examined this patient [id number] and my medical decision-making was reviewed with Dr. Shon Haney, Resident Physician. I agree with the documented findings, disposition and treatment plan as described except to the extent set forth below. Please see my progress notes for details.
--- NOTE | 2018-06-22 13:42 | Emergency Department Note ---
Disposition Clinical Impression: Hip fracture, right, Cellulitis, Wound infection Disposition: Admitted As Inpatient Condition: Fair Forms: ED Satisfaction Letter Time of Disposition: 15:30 General Adult HPI - General Chief complaint: ED Extremity Problem,Nontraumatic Stated complaint: Right hip pain Time Seen by Provider: 06/22/18 13:07 Source: patient, EMS Mode of arrival: EMS Limitations: no limitations - History of Present Illness Pain Scale: 6 - Related Data Home Medications Medication Instructions Recorded Confirmed Bupropion HCl [Wellbutrin Xl] 300 mg PO DAILY 10/11/16 05/28/18 Cevimeline HCl [Evoxac] 30 mg PO TID 10/11/16 05/28/18 Cilostazol 50 mg PO BID 10/11/16 05/28/18 Clopidogrel [Plavix] 75 mg PO DAILY 10/11/16 05/28/18 Donepezil [Aricept] 10 mg PO Q48H 10/11/16 05/28/18 Famotidine [Pepcid] 40 mg PO BID 10/11/16 05/28/18 Medroxyprogesterone Acetate 2.5 mg PO Q48H 10/11/16 05/28/18 [Provera] Montelukast [Singulair] 10 mg PO DAILY 10/11/16 05/28/18 Nabumetone [Relafen] 500 mg PO BID 10/11/16 05/29/18 Pioglitazone HCl/Metformin HCl 1 each PO BID 10/11/16 05/29/18 [Actoplus Met 15 mg-500 mg Tab] Pravastatin Sodium [Pravachol] 40 mg PO HS 10/11/16 05/30/18 Sertraline [Zoloft] 200 mg PO QAM 10/11/16 05/28/18 Solifenacin Succinate [Vesicare] 10 mg PO DAILY 10/11/16 10/11/16 hydrOXYzine HCl [Hydroxyzine HCl] 25 mg PO BID 10/11/16 05/28/18 Melatonin 5 mg PO HS PRN 05/28/18 05/28/18 Umeclidinium [place] [Incruse 1 puff IH DAILY 05/28/18 05/28/18 Ellipta] Albuterol Sulfate [Albuterol 2 puff PO Q6H PRN 05/29/18 05/29/18 Inhaler] Exenatide [Byetta] 10 mcg SQ BID 05/29/18 05/29/18 Previous Rx's Medication Instructions Recorded Acetaminophen [Tylenol] 650 mg PO Q6HR PRN #0 tablet 10/19/16 Budesonide/Formoterol 160/4.5 1 puff IH BIDR #1 hfa.aer.ad 10/19/16 [Symbicort 160/4.5] Diltiazem CD (24hr) [Cardizem CD] 120 mg PO DAILY cap.er.24h 10/19/16 Ipratropium/Albuterol Neb [Duoneb] 3 ml IH [id number] PRN #0 inhsol 10/19/16 Lisinopril [Zestril] 20 mg PO DAILY tablet 10/19/16 Metoprolol [Lopressor] 25 mg PO BID tablet 10/19/16 amLODIPine [Norvasc] 10 mg PO DAILY tablet 10/19/16 Aspirin Enteric Coated [Aspirin EC] 325 mg PO BID 28 Days #56 tablet. 06/04/18 Allergies Allergy/AdvReac Type Severity Reaction Status Date / Time Penicillins Allergy See Verified 06/22/18 13:28 Comments Sulfa (Sulfonamide Allergy Hives Verified 06/22/18 13:28 Antibiotics) codeine AdvReac Difficulty Verified 06/22/18 13:28 Breathing Constitutional: Denies: fever Cardiovascular: Denies: chest pain Respiratory: Denies: dyspnea Gastrointestinal: Denies: abdominal pain, nausea, vomiting Genitourinary: Denies: urgency, dysuria, frequency, hematuria Musculoskeletal: Reports: other (Right hip pain) Integumentary: Reports: other (Mild erythema and discharge from the surgical site on her right hip) Past Medical History - Past Medical History Medical history: Reports: COPD, diabetes, hyperlipidemia, hypertension Surgical history: Reports: non-contributory Psychiatric history: Reports: anxiety - Social History Smoking Status: Former smoker Smokeless Tobacco Status: No Alcohol use: Reports: none Drug use: Reports: none Physical Exam - General Limitations: no limitations General appearance: alert, in no apparent distress Course Vital Signs Temperature 98.8 F 06/22/18 13:21 Pulse Rate 64 06/22/18 13:21 Respiratory Rate 16 06/22/18 13:21 Blood Pressure 109/47 06/22/18 13:21 O2 Sat by Pulse Oximetry 95 06/22/18 13:21 Temperature 98.8 F 06/22/18 13:21 Pulse Rate 64 06/22/18 13:21 Respiratory Rate 16 06/22/18 13:21 Blood Pressure 109/47 06/22/18 13:21 O2 Sat by Pulse Oximetry 95 06/22/18 13:21 Oxygen Delivery Oxygen Delivery Room Air Medical Decision Making - Lab Data Result diagrams: 06/22/18 13:42 06/22/18 13:42 Lab Results 06/22/18 06/22/18 Range/Units 13:42 13:42 WBC 6.0 (4.3-11.1) K/mcL RBC 3.57 L (3.82-4.97) M/mcL Hgb 10.7 L (11.5-15.4) g/dL Hct 33.9 L (35.3-44.9) % MCV 95.0 (83.0-100.0) fL MCH 30.0 (28.0-33.3) pg MCHC 31.6 (31.6-35.5) g/dL RDW 14.0 (11.5-14.5) % Plt Count 342 (140-400) K/mcL MPV 9.2 L (9.4-12.4) fL Immature Gran % 0.2 (0-4) % Seg Neutrophils % 47.1 % Lymphocytes % 41.0 % Monocytes % 8.4 % Eosinophils % 2.8 % Basophils % 0.5 % Neutrophils # 2.8 (1.6-8.9) K/mcL Lymphocytes # 2.5 (0.6-4.6) K/mcL Monocytes # 0.5 (0.0-1.3) K/mcL Eosinophils # 0.2 (0.0-0.6) K/mcL Basophils # 0.0 (0.0-0.2) K/mcL Sodium 139 (136-145) mEq/L Potassium 4.6 (3.5-5.1) mEq/L Chloride 107 (98-107) mEq/L Carbon Dioxide 24 (23-29) mEq/L BUN 17 (8-23) mg/dL Creatinine 0.71 (0.60-1.20) mg/dL Est GFR ( Amer) > 60 (> 60) Est GFR (Non-Af Amer) > 60 (> 60) BUN/Creatinine Ratio 24 (6-26) Glucose 172 H (70-105) mg/dL Calculated Osmolality 294 (280-300) Calcium 9.3 (8.6-10.3) mg/dL Attestation Statement - Attestation Attestation: I, Logan Khalil DO, examined this patient [id number] and my medical deci perico-making was reviewed with Dr. Shon Haney, Resident Physician. I agree with the documented findings, disposition and treatment plan as described except to the extent set forth below. Please see my progress notes for details. 72-year-old female presents to the emergency room with complaint of right leg pain. Patient had surgery completed earlier this month and had her hip re placed. Since then she has been in a rehabilitation facility. Currently on antibiotics for possible superficial infection to the surgical site. Patient denies any fevers or chills. Denies any nausea vomiting or diarrhea. Denies any headache or vision change. Denies any chest pain or shortness of breath. Patient is alert she is oriented she speaks in full sentences. Antibiotic for which she is taking at the nursing facility is unknown to her at this point. She denies any new falls trauma or injuries. Evaluation of the patient this time shows a normal appearing female in no apparent distress. Lungs are clear heart is regular. Vital signs are stable. Pelvis is unremarkable. Incision sites on the right thigh appear to be healing well. The superior incision does have mild erythema around the surgical site. The marina are in place and appear to be in good condition. She does have a small blister at the inferior aspect of the suture line. There is no purulent discharge redness warmth or irritation noted. Pulses are intact. No signs of redness swelling or warmth. No induration or fluid accumulation noted. Patient is currently on antibiotics. The area could be irritated secondary to the wound dressings versus a serosanguineous discharge is noted. Patient alleges patient labs completed in the bedside ultrasound and then will contact orthopedics further recommenda tions. Patient is otherwise clinically stable in no distress. Disposition pending full workup and treatment course. See detailed documentation the physical exam, medical intervention, medical decision-making and disposition in the resident physician's note. No critical care provider the patient's treatment course at this time. 1415 Patient has stable laboratory workup at this point. The wound area appears to be stable with possible superficial cellulitis. Conversation was had with the operative physician Dr. Hazel. After description of the presentation as well as the leg he recommended the patient be admitted to the hospitalist for IV antibiotics and evaluation inpatient setting. No other acute issues or recommendations this time. Patient will have blood cultures and vancomycin provided. Patient does have a penicillin allergy so instead of Zosyn will use aztreonam. Plain film of the hip will be collected as well this time considering we are admitting for hip related injury. Patient will be informed admission process to be established. 1515 Patient is otherwise stable. The hospitalist reviewed the case. No other recommendations or issues noted this time. Patient will be admitted for continued monitoring symptomatic control. The orthopedic physician will consult for review of the postsurgical related issue. Patient otherwise stable. Admission process will be completed.
[2018-06-22 14:19] LABS: Basophils % 0.5 %; Eosinophils # 0.2 K/mcL (0.0-0.6); Eosinophils % 2.8 %; Hematocrit 33.9 % (35.3-44.9); Hemoglobin 10.7 g/dL (11.5-15.4); Immature Granulocytes % 0.2 % (0-4); Lymphocytes # 2.5 K/mcL (0.6-4.6); Mean Corpuscular HGB Conc 31.6 g/dL (31.6-35.5); Mean Platelet Volume 9.2 fL (9.4-12.4); Monocytes # 0.5 K/mcL (0.0-1.3); Monocytes % 8.4 %; Neutrophils # 2.8 K/mcL (1.6-8.9); Platelet Count 342 K/mcL (140-400); Red Blood Count 3.57 M/mcL (3.82-4.97); Segmented Neutrophils % 47.1 %
[2018-06-22] MEDS ORDERED: Aztreonam 2,000 MG in Water for inj. (sterile) 20 ML 20 ML IVP STA (14:32)
[2018-06-22 14:44] LABS: BUN/Creatinine Ratio 24 (6-26); Blood Urea Nitrogen 17 mg/dL (8-23); Calcium 9.3 mg/dL (8.6-10.3); Carbon Dioxide 24 mEq/L (23-29); Chloride 107 mEq/L (98-107); Glucose 172 mg/dL (70-105); Osmolality,Calculated 294 (280-300); Potassium 4.6 mEq/L (3.5-5.1); Sodium 139 mEq/L (136-145); eGFR For Non-African Americans > 60 (> 60)
[2018-06-22] MEDS ORDERED: Naloxone 0.4 MG/ML INJ IVP PRN (16:27)
--- NOTE | 2018-06-22 16:29 | Internal Med History&Physical ---
Date of Encounter: 06/22/18 Time of Encounter: 16:26 Internal Medicine - H&P: HPI Chief complaint: my wound is infected Admitted From: Long-term Nursing Facility Plans for Post Hospital Care: Transfer Group Home Facility History of present illness: Ms. Wood is a 72 year old female with medical history of diabetes mellitus, hypertension, hyperlipidemia, history of recurrent falls probably status post right hip nailing done in 05/29/18 at this facility following a right hip fracture. Patient [facility]18. The patient reports in the past week, she has been told that her wound has been red, and discharging. She also reports that it has been more painful to walk on the right lower extremity and the wound has felt more painful than before. She denies fever or chills. She is also unaware if she was taking antibiotics at the care home. Denies any nausea vomiting or diarrhea. Denies any headache or vision change. Denies any chest pain or shortness of breath. Patient is alert she is oriented she speaks in full sentences. Other review of system is unremarkable Workup in the ER significant for CBC and chemistries at baseline, plain hip x- ray done and shows status post ORIF improved alignment. At the time of review, patient is alert, awake oriented not in distress, hemodynamically stable and vital signs stable. She is full code. She will be admitted inpatient for cellulitis of the incision and failure of outpatient therapy. Orthopedic surgery has been consulted by the emergency room team. We will obtain cultures and continue antibiotics at this time. Past Med Surg Social Fam HX - Past Medical History Medical history: COPD, diabetes, hyperlipidemia, hypertension Additional medical history: rheumatic fever Psychiatric history: anxiety - Past Surgical History Surgical History: non-contributory Additional surgical history: lumpectomy to right breast, pin in right ankle - Social History Smoking Status: Former smoker Smokeless Tobacco Status: No Alcohol use: none Drug use: none - Family History Mother Living Status: Hx Family Cardiac Disorders: Yes (HTN) Hx Family Respiratory Disorders: Yes (Emphysema) Hx Family Cancer: Yes (Breast) Hx Family GI Disorders: No Hx Family Endocrine Disorder: No Hx Family Neuromuscular Disorders: No Hx Family Neurologic Disorders: No Hx Family HEENT Disorders: No Hx Family Autoimmune Disorders: No Father Living Status: Internal Medicine - H&P: Meds Bupropion HCl [Wellbutrin Xl] 300 mg PO DAILY 10/11/16 [History] Cevimeline HCl [Evoxac] 30 mg PO TID 10/11/16 [History] Cilostazol 50 mg PO BID 10/11/16 [History] Clopidogrel [Plavix] 75 mg PO DAILY 10/11/16 [History] Donepezil [Aricept] 10 mg PO Q48H 10/11/16 [History] Famotidine [Pepcid] 40 mg PO BID 10/11/16 [History] Medroxyprogesterone Acetate [Provera] 2.5 mg PO Q48H 10/11/16 [History] Montelukast [Singulair] 10 mg PO DAILY 10/11/16 [History] Nabumetone [Relafen] 500 mg PO BID 10/11/16 [History] Pioglitazone HCl/Metformin HCl [Actoplus Met 15 mg-500 mg Tab] 1 each PO BID 10/11/16 [History] Pravastatin Sodium [Pravachol] 40 mg PO HS 10/11/16 [History] Sertraline [Zoloft] 200 mg PO QAM 10/11/16 [History] Solifenacin Succinate [Vesicare] 10 mg PO DAILY 10/11/16 [History] hydrOXYzine HCl [Hydroxyzine HCl] 25 mg PO BID 10/11/16 [History] Acetaminophen [Tylenol] 650 mg PO Q6HR PRN #0 tablet 10/19/16 [Rx] Budesonide/Formoterol 160/4.5 [Symbicort 160/4.5] 1 puff IH BIDR #1 hfa.aer.ad 10/19/16 [Rx] Diltiazem CD (24hr) [Cardizem CD] 120 mg PO DAILY cap.er.24h 10/19/16 [Rx] Ipratropium/Albuterol Neb [Duoneb] 3 ml IH [id number] PRN #0 inhsol 10/19/16 [Rx] Lisinopril [Zestril] 20 mg PO DAILY tablet 10/19/16 [Rx] Metoprolol [Lopressor] 25 mg PO BID tablet 10/19/16 [Rx] amLODIPine [Norvasc] 10 mg PO DAILY tablet 10/19/16 [Rx] Melatonin 5 mg PO HS PRN 05/28/18 [History] Umeclidinium [place] [Incruse Ellipta] 1 puff IH DAILY 05/28/18 [History] Albuterol Sulfate [Albuterol Inhaler] 2 puff PO Q6H PRN 05/29/18 [History] Exenatide [Byetta] 10 mcg SQ BID 05/29/18 [History] Aspirin Enteric Coated [Aspirin EC] 325 mg PO BID 28 Days #56 tablet. 06/04/18 [Rx] Allergy/AdvReac Type Severity Reaction Status Date / Time Penicillins Allergy See Verified 06/22/18 13:28 Comments Sulfa (Sulfonamide Allergy Hives Verified 06/22/18 13:28 Antibiotics) codeine AdvReac Difficulty Verified 06/22/18 13:28 Breathing All Systems PM: A 10-system review of systems was performed and is negative for pertinent findings except as documented above in the HPI. - Constitutional Constitutional: as per HPI - EENT Eyes: as per HPI Ears: as per HPI Nose, mouth and throat: as per HPI - Cardiovascular Cardiovascular ROS IM: as per HPI - Respiratory Respiratory: as per HPI - Gastrointestinal Gastrointestinal: as per HPI - Genitourinary Genitourinary: as per HPI - Musculoskeletal Musculoskeletal ROS IM: as per HPI - Integumentary Integumentary IM: as per HPI - Neurological Neurological ROS: as per HPI - Hematologic/Lymphatic Hematologic/Lymphatic: as per HPI - Constitutional Vitals: Temp Pulse Resp BP Pulse Ox 98.8 F 64 16 109/47 95 06/22/18 13:21 06/22/18 13:21 06/22/18 13:21 06/22/18 13:21 06/22/18 13:21 General appearance: Present: A&O X 3, pleasant, no acute distress Exam: GEN: NAD HEENT: AT, NC, No cyanosis, oral mucosa is dry, No JVD Eyes: Extraocular muscles intact, anicteric CVS: RRR. S1, S2, No m/r/g RESP: CTAB ABD: Soft, NT, ND, +BS. Extremities: There are 2 incision sites on the right lower extremity. Incision site on the right thigh appears to be healing well with no surrounding erythema or discharge marina are in place and intact. Distal. Incision on the right hip is erythematous, with a blister at the top with serosanguineous discharge. There is surrounding differential warmth and tenderness. There is no visible in duration or abscess collections, however days a pus-like discharge underneath both to superior marina. Distally, the right and lower extremities neurovascularly intact. NEURO: Non-focal, CN II-XII intact, No focal motor or sensory deficits Psych: Cooperative, Not anxious or depressed Internal Med - H&P Results - Labs CBC & Chem 7: 06/22/18 13:42 06/22/18 13:42 Labs: Short CBC 06/22/18 Range/Units 13:42 WBC 6.0 (4.3-11.1) K/mcL Hgb 10.7 L (11.5-15.4) g/dL Hct 33.9 L (35.3-44.9) % Plt Count 342 (140-400) K/mcL Neutrophils # 2.8 (1.6-8.9) K/mcL BMP 06/22/18 13:42 Sodium 139 Potassium 4.6 Chloride 107 Carbon Dioxide 24 BUN 17 Creatinine 0.71 Glucose 172 H Calcium 9.3 - Impressions ITS Impressions Hip X-Ray 06/22/18 14:36 IMPRESSION: 1. ORIF of the right femoral intertrochanteric neck fracture with improved alignment. D/ /22/2018 15:17:23 Mehdi Crouch MD [facility] Interpreting Provider: Mehdi Crouch MD - Assessment and plan (1) Cellulitis Current Visit: Yes Status: Acute Assessment and plan: At this time, we are unsure what antibiotic the patient was getting as outpatient. However, clinical evidence of suspected infection of the right thigh wound. We will obtain wound and blood cultures Due to patient's allergies to penicillin and sulfa, we will start the patient on vancomycin and aztreonam Follow final wound cultures Consult orthopedic surgery for wound review and evaluation and dressing recommendations There is no current indication for infectious disease at this time, we will consult when necessary Qualifiers: Site of cellulitis: extremity Site of cellulitis of extremity: lower extre mity Laterality: right Qualified Code(s): L03.115 - Cellulitis of right lower limb (2) Status post hip surgery Current Visit: Yes Status: Chronic Assessment and plan: wound care per ortho Continue DT prophylaxis with SQ heparin PTOT eval OOB daily pain control (3) Anemia Current Visit: Yes Status: Chronic Assessment and plan: Hemoglobin at time of discharge last month was 8.6, hemoglobin admitted today 10.7. stable, continue to monitor Qualifiers: Anemia type: unspecified type Qualified Code(s): D64.9 - Anemia, unspecified (4) DVT prophylaxis Current Visit: Yes Status: Acute Assessment and plan: Lovenox (5) Diabetes mellitus Current Visit: Yes Status: Chronic Assessment and plan: SSI FS ACHS ADA diet Qualifiers: Diabetes mellitus type: type 2 Diabetes mellitus long term care social worker insulin use: without custodial use Diabetes mellitus complication status: without complication Qualified Code(s): E11.9 - Type 2 diabetes mellitus without complications (6) Hyperlipidemia Current Visit: Yes Status: Chronic Assessment and plan: resume home meds after confirmation Qualifiers: Hyperlipidemia type: unspecified Qualified Code(s): E78.5 - Hyperlipidemia, unspecified (7) Hypertension Current Visit: Yes Status: Chronic Assessment and plan: continue home meds after confirmation Qualifiers: Hypertension type: essential hypertension Qualified Code(s): I10 - Essential (primary) hypertension (8) PVD (peripheral vascular disease) Current Visit: Yes Status: Chronic Assessment and plan: continue home meds (9) Multifocal atrial tachycardia Current Visit: Yes Status: Chronic Assessment and plan: continue home meds when confirmed (10) COPD (chronic obstructive pulmonary disease) Current Visit: Yes Status: Chronic Assessment and plan: DuoNeb prn continue home meds Qualifiers: COPD type: unspecified COPD Qualified Code(s): J44.9 - Chronic obstructive pulmonary disease, unspecified - Time Spent With Patient Total time spent is greater than 50% in coordination of care (as documented) at patient's floor/unit and/or counseling patient:
[2018-06-22] MEDS ORDERED: *HR* Dextrose 50 % in Water (Syg) 50 ML SYRINGE IVP PRN (16:34)
[2018-06-22] MEDS ORDERED: Dextrose Gel 15 GM/37.5 ML TUBE PO PRN ×2 (16:34)
[2018-06-22] MEDS ORDERED: D5% in Water 1,000 ML IVC PRN (16:34)
[2018-06-22] MEDS ORDERED: Ipratropium/Albuterol Neb 3 ML IH PRN (17:16)
--- NOTE | 2018-06-22 20:50 | Orthopedic Consult Note ---
Date of Encounter: 06/22/18 Time of Encounter: 19:30 Assessment and Plan (1) Wound infection Current Visit: Yes Status: Acute I did discuss the diagnosis in detail with the patient. She does have a surgical site infection on the right hip which is draining serous bloody fluid with overlying infection. I did discuss the treatment options with the patient and my recommendation is for incision, drainage, irrigation, and debridement of the wound to drain the fluid collection and reduce the bacterial burden within the wound. I anticipate IV antibiotics until the cultures and clinical scenario allow for the escalation. We will keep her nothing by mouth after midnight and proceed with surgical washout tomorrow. The risks discussed included but were not limited to stiffness, bleeding, infection, blood clots, damage to neurovascular structures, tendons, ligaments, and bone. Also discussed was the risk of continued symptoms and possible need for further procedures. I did discuss the anesthesia risks including stroke, heart attack, and . I did discuss the reasonable, foreseeable postoperative course with the patient. The patient did wish to proceed. History of Present Illness HPI: Ms. Wood is a 72 year old female who is about 3-1/2 weeks out from right hip nailing. She missed her 2 week postop follow-up. She rescheduled to Monday of next week. She says for the last 2 weeks, however she has developed drainage from the right hip wound proximally. She indicates that 2 days ago she was placed on Keflex at the snf. She was sent to the emergency department for further evaluation and management and was admitted to the hospitalist due to a surgical site infection. On my evaluation the patient complains of isolated pain to the proximal lateral thigh region. She has been able to ambulate without issue. She is bearing full weight on the right lower extremity though does cause pain to the proximal lateral thigh region. She denies any feelings of illness or fevers or chills. She denies any new injuries. No numbness, tingling, or any other associated signs or symptoms or modifying factors. Past Med Surg Social Fam HX - Past Medical History Medical history: COPD, diabetes, hyperlipidemia, hypertension Additional medical history: rheumatic fever Psychiatric history: anxiety - Past Surgical History Surgical History: non-contributory Additional surgical history: lumpectomy to right breast, pin in right ankle - Social History Smoking Status: Former smoker Smokeless Tobacco Status: No Alcohol use: none Drug use: none - Family History Mother Living Status: Hx Family Cardiac Disorders: Yes (HTN) Hx Family Respiratory Disorders: Yes (Emphysema) Hx Family Cancer: Yes (Breast) Hx Family GI Disorders: No Hx Family Endocrine Disorder: No Hx Family Neuromuscular Disorders: No Hx Family Neurologic Disorders: No Hx Family HEENT Disorders: No Hx Family Autoimmune Disorders: No Father Living Status: Medications and Allergies Bupropion HCl [Wellbutrin Xl] 300 mg PO DAILY 10/11/16 [History] Cevimeline HCl [Evoxac] 30 mg PO TID 10/11/16 [History] Cilostazol 50 mg PO BID 10/11/16 [History] Clopidogrel [Plavix] 75 mg PO DAILY 10/11/16 [History] Donepezil [Aricept] 10 mg PO Q48H 10/11/16 [History] Famotidine [Pepcid] 40 mg PO BID 10/11/16 [History] Medroxyprogesterone Acetate [Provera] 2.5 mg PO Q48H 10/11/16 [History] Montelukast [Singulair] 10 mg PO DAILY 10/11/16 [History] Nabumetone [Relafen] 500 mg PO BID 10/11/16 [History] Pioglitazone HCl/Metformin HCl [Actoplus Met 15 mg-500 mg Tab] 1 each PO BID 10/11/16 [History] Pravastatin Sodium [Pravachol] 40 mg PO HS 10/11/16 [History] Sertraline [Zoloft] 200 mg PO QAM 10/11/16 [History] Solifenacin Succinate [Vesicare] 10 mg PO DAILY 10/11/16 [History] hydrOXYzine HCl [Hydroxyzine HCl] 25 mg PO BID 10/11/16 [History] Acetaminophen [Tylenol] 650 mg PO Q6HR PRN #0 tablet 10/19/16 [Rx] Budesonide/Formoterol 160/4.5 [Symbicort 160/4.5] 1 puff IH BIDR #1 hfa.aer.ad 10/19/16 [Rx] Diltiazem CD (24hr) [Cardizem CD] 120 mg PO DAILY cap.er.24h 10/19/16 [Rx] Ipratropium/Albuterol Neb [Duoneb] 3 ml IH [id number] PRN #0 inhsol 10/19/16 [Rx] Lisinopril [Zestril] 20 mg PO DAILY tablet 10/19/16 [Rx] Metoprolol [Lopressor] 25 mg PO BID tablet 10/19/16 [Rx] amLODIPine [Norvasc] 10 mg PO DAILY tablet 10/19/16 [Rx] Melatonin 5 mg PO HS PRN 05/28/18 [History] Umeclidinium [place] [Incruse Ellipta] 1 puff IH DAILY 05/28/18 [History] Albuterol Sulfate [Albuterol Inhaler] 2 puff PO Q6H PRN 05/29/18 [History] Exenatide [Byetta] 10 mcg SQ BID 05/29/18 [History] Aspirin Enteric Coated [Aspirin EC] 325 mg PO BID 28 Days #56 tablet. 06/04/18 [Rx] Allergy/AdvReac Type Severity Reaction Status Date / Time Penicillins Allergy See Verified 06/22/18 13:28 Comments Sulfa (Sulfonamide Allergy Hives Verified 06/22/18 13:28 Antibiotics) codeine AdvReac Difficulty Verified 06/22/18 13:28 Breathing All Systems Reviewed: Constitutional -The patient denies any fevers, chills, or feelings of illness Neurologic -The patient denies any numbness, tingling, or burning pains Physical Exam - Constitutional Vitals: Temp Pulse Resp BP Pulse Ox 99.0 F 68 16 137/73 93 06/22/18 18:57 06/22/18 18:57 06/22/18 18:57 06/22/18 18:57 06/22/18 18:57 CONSTITUTIONAL -Vitals reviewed -The patient is well developed, well nourished, well groomed PSYCHIATRIC -Fully alert and oriented -Pleasant mood RIGHT UPPER EXTREMITY Inspection shows that the distal 2 incisions for the lag screw and the interlocking screw are healed nicely and the marina are removed. The proximal wound is healed proximally however the distal centimeter is draining dark bloody serous fluid. This can be milked out of the wound. There is surrounding cellulitis, mild induration, and tenderness. I can gently axial load and log rolled the right hip without pain or discomfort. She can dorsiflex and plantarflex ankle and toes and the foot is sensate and well-perfused. Results - Labs Result Diagrams: 06/22/18 13:42 06/22/18 13:42 Labs: Abnormal lab results RBC 3.57 M/mcL (3.82-4.97) L 06/22/18 13:42 Hgb 10.7 g/dL (11.5-15.4) L 06/22/18 13:42 Hct 33.9 % (35.3-44.9) L 06/22/18 13:42 MPV 9.2 fL (9.4-12.4) L 06/22/18 13:42 Glucose 172 mg/dL (70-105) H 06/22/18 13:42 H & H 06/22/18 Range/Units 13:42 Hgb 10.7 L (11.5-15.4) g/dL Hct 33.9 L (35.3-44.9) % All other labs normal. Consult Discharge Plan - Plan Referrals: NONE,PCP [Primary Care Provider] -
[2018-06-22] MEDS ORDERED: Insulin LISPRO 300 UNITS/3 ML VIAL SQ SCH (21:00)
[2018-06-22] MEDS ORDERED: Melatonin 3 MG TABLET PO PRN (23:30)
[2018-06-23] MEDS ORDERED: Acetaminophen 325 MG TABLET PO ONE (04:52)
[2018-06-23] MEDS ORDERED: *HR* Enoxaparin 40 MG/0.4 ML SYRINGE SQ SCH (06:00)
[2018-06-23 06:44] LABS: Basophils % 0.3 %; Eosinophils # 0.2 K/mcL (0.0-0.6); Eosinophils % 2.2 %; Hematocrit 35.5 % (35.3-44.9); Hemoglobin 11.3 g/dL (11.5-15.4); Immature Granulocytes % 0.3 % (0-4); Lymphocytes # 2.6 K/mcL (0.6-4.6); Lymphocytes % 39.5 %; Mean Corpuscular HGB Conc 31.8 g/dL (31.6-35.5); Mean Corpuscular Hemoglobin 29.6 pg (28.0-33.3); Mean Corpuscular Volume 92.9 fL (83.0-100.0); Monocytes # 0.5 K/mcL (0.0-1.3); Monocytes % 7.9 %; Neutrophils # 3.3 K/mcL (1.6-8.9); Platelet Count 363 K/mcL (140-400); Red Blood Count 3.82 M/mcL (3.82-4.97); Segmented Neutrophils % 49.8 %
[2018-06-23 06:51] LABS: BUN/Creatinine Ratio 21 (6-26); Blood Urea Nitrogen 13 mg/dL (8-23); Calcium 9.6 mg/dL (8.6-10.3); Carbon Dioxide 23 mEq/L (23-29); Chloride 107 mEq/L (98-107); Glucose 138 mg/dL (70-105); Magnesium 1.8 mg/dL (1.6-2.6); Osmolality,Calculated 290 (280-300); Phosphorous 3.6 mg/dL (2.7-4.5); Sodium 139 mEq/L (136-145); eGFR For Non-African Americans > 60 (> 60)
[2018-06-23] MEDS ORDERED: Insulin LISPRO 300 UNITS/3 ML VIAL SQ SCH (07:30)
--- NOTE | 2018-06-23 08:31 | Anesthesia Evaluation PreOp ---
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 Significant HX Other Medical History: Diabetes Type II (insulin dependent) Anesthesia History: No Prior Anesthetic Complications, Past Anesthesia Alcohol Use: none Drug use: none Medications and Allergies Bupropion HCl [Wellbutrin Xl] 300 mg PO DAILY 10/11/16 [History] Cevimeline HCl [Evoxac] 30 mg PO TID 10/11/16 [History] Cilostazol 50 mg PO BID 10/11/16 [History] Clopidogrel [Plavix] 75 mg PO DAILY 10/11/16 [History] Donepezil [Aricept] 10 mg PO Q48H 10/11/16 [History] Famotidine [Pepcid] 40 mg PO BID 10/11/16 [History] Medroxyprogesterone Acetate [Provera] 2.5 mg PO Q48H 10/11/16 [History] Montelukast [Singulair] 10 mg PO DAILY 10/11/16 [History] Nabumetone [Relafen] 500 mg PO BID 10/11/16 [History] Pioglitazone HCl/Metformin HCl [Actoplus Met 15 mg-500 mg Tab] 1 each PO BID 10/11/16 [History] Pravastatin Sodium [Pravachol] 40 mg PO HS 10/11/16 [History] Sertraline [Zoloft] 200 mg PO QAM 10/11/16 [History] Solifenacin Succinate [Vesicare] 10 mg PO DAILY 10/11/16 [History] hydrOXYzine HCl [Hydroxyzine HCl] 25 mg PO BID 10/11/16 [History] Acetaminophen [Tylenol] 650 mg PO Q6HR PRN #0 tablet 10/19/16 [Rx] Budesonide/Formoterol 160/4.5 [Symbicort 160/4.5] 1 puff IH BIDR #1 hfa.aer.ad 10/19/16 [Rx] Diltiazem CD (24hr) [Cardizem CD] 120 mg PO DAILY cap.er.24h 10/19/16 [Rx] Ipratropium/Albuterol Neb [Duoneb] 3 ml IH [id number] PRN #0 inhsol 10/19/16 [Rx] Lisinopril [Zestril] 20 mg PO DAILY tablet 10/19/16 [Rx] Metoprolol [Lopressor] 25 mg PO BID tablet 10/19/16 [Rx] amLODIPine [Norvasc] 10 mg PO DAILY tablet 10/19/16 [Rx] Melatonin 5 mg PO HS PRN 05/28/18 [History] Umeclidinium [place] [Incruse Ellipta] 1 puff IH DAILY 05/28/18 [History] Albuterol Sulfate [Albuterol Inhaler] 2 puff PO Q6H PRN 05/29/18 [History] Exenatide [[place]] 10 mcg SQ BID 05/29/18 [History] Aspirin Enteric Coated [Aspirin EC] 325 mg PO BID 28 Days #56 tablet. 06/04/18 [Rx] Allergy/AdvReac Type Severity Reaction Status Date / Time Penicillins Allergy See Verified 06/22/18 13:28 Comments Sulfa (Sulfonamide Allergy Hives Verified 06/22/18 13:28 Antibiotics) codeine AdvReac Difficulty Verified 06/22/18 13:28 Breathing - Meds/Allergy Pre-op Review Medications Reviewed: Yes Allergies Reviewed: Yes Beta Blockers on Current Med List: Yes If Beta Blockers taken, Date/Time (Last Dose taken): 06-23-18 metoprolol 7:09 Anesthesia Results - Labs 06/23/18 05:33 06/23/18 05:33 - Imaging EKG: report reviewed, image reviewed (SINUS RHYTHM POSSIBLE LEFT ATRIAL ENLARGEMENT BORDERLINE RIGHT AXIS DEVIATION MODERATE INTRAVENTRICULAR CONDUCTION DELAY NONSPECIFIC ST & T-WAVE ABNORMALITY) Additional studies: 2017 TTE: Indications: new atrial fibrillation Impressions: LVEF 65%. Normal left ventricular size and systolic function. There is evidence of mild diastolic dysfunction of the left ventricle. Normal right ventricular size and function. Mild mitral regurgitation. No pulmonary hypertension. Anesthesia Exam Last Vital Signs Temp 98.0 F 06/23/18 03:39 Pulse 70 06/23/18 03:39 Resp 16 06/23/18 03:39 BP 130/76 06/23/18 03:39 Pulse Ox 92 06/23/18 03:39 Weight: 75 kg NPO (# of Hours): > 8 hrs - HEENT Pupil (Motor): Pupils equal, EOMI Mallampati: III Teeth: Normal Oral Opening: Greater than 3 - BOAT WORKER LOC: Oriented BOAT WORKER Motor: Normal RUE, Normal LUE, Normal RLE, Normal LLE, Normal Face - Cardiac Rhythm: Regular Murmur: None - Pulmonary Breath Sounds: bilateral Clear Respiratory Effort: Symmetrical Anesthesia Assess/Plan ASA Score: 3 Level of consciousness: Cooperative Anesthetic Plan: General Monitoring Plan: Standard Monitors Recovery Plan: PACU
[2018-06-23] MEDS ORDERED: Lidocaine -MPF 2% 2 ML VIAL ONE (08:41)
[2018-06-23] MEDS ORDERED: *HR* Propofol 200 MG/20 ML VIAL IVP ONE (08:41)
[2018-06-23] MEDS ORDERED: *HR* FentaNYL (PF) 100 MCG/2 ML VIAL ONE ×3 (08:41→09:56)
[2018-06-23] MEDS ORDERED: Ondansetron 4 MG/2 ML VIAL ONE (08:41)
[2018-06-23] MEDS ORDERED: *HR* Succinylcholine 200 MG/10 ML VIAL IVP ONE (08:41)
[2018-06-23] MEDS ORDERED: Lidocaine -MPF 4% 5 ML AMPUL ONE (08:42)
[2018-06-23] MEDS ORDERED: Dexamethasone 4 MG/ML VIAL ONE (08:42)
[2018-06-23] MEDS ORDERED: Ethanol\\Acetic Acid\\Na Ace\\Ben 1,000 ML IRRIG.SOLN IR ONE (09:02)
--- NOTE | 2018-06-23 09:04 | Internal Med Progress Note ---
Hospitalist Progress Note - Encounter Date of Encounter: 06/23/18 Time of Encounter: 12:44 - Subjective Interval History: 72 F admitted for wound infection of Right hip Orthopedics following and patient is post washout, incision and drainage today cultures pending Patient is on vancomycin and aztreonam pending culture reports She was seen immediate post-op She is only complaining of pain Home meds are yet to be verified for resumption - Exam Vitals: Temp Pulse Resp BP Pulse Ox 98.0 F 70 16 130/76 92 06/23/18 03:39 06/23/18 03:39 06/23/18 03:39 06/23/18 03:39 06/23/18 03:39 Exam: GEN: NAD HEENT: AT, NC, No cyanosis, oral mucosa is dry, No JVD Eyes: Extraocular muscles intact, anicteric CVS: RRR. S1, S2, No m/r/g RESP: CTAB ABD: Soft, NT, ND, +BS. Extremities: There are 2 incision sites on the right lower extremity. Incision site on the right thigh appears to be healing well with no surrounding erythema or discharge marina are in place and intact. Dressing on right hip slightly soaked, drain filled with blood, patient is able to move toes and RLL is neurovascularly intact distally NEURO: Non-focal, CN II-XII intact, No focal motor or sensory deficits Psych: Cooperative, Not anxious or depressed - Assessment and Plan (1) Cellulitis Current Visit: Yes Status: Acute Assessment and Plan: s/p I and D and washout by ortho, today 06/23 Continue vanco ansd azteronam Blood and wound cultures pending Continue pain control (2) Status post hip surgery Current Visit: Yes Status: Chronic Assessment and Plan: wound care per ortho Continue DT prophylaxis with SQ heparin PTOT eval OOB daily pain control (3) Anemia Current Visit: Yes Status: Chronic Assessment and Plan: Hemoglobin at time of discharge last month was 8.6, hemoglobin on admission 10 stable, continue to monitor (4) DVT prophylaxis Current Visit: Yes Status: Acute Assessment and Plan: Lovenox (5) Diabetes mellitus Current Visit: Yes Status: Chronic Assessment and Plan: SSI FS ACHS ADA diet (6) Hyperlipidemia Current Visit: Yes Status: Chronic Assessment and Plan: resume home meds after confirmation (7) Hypertension Current Visit: Yes Status: Chronic Assessment and Plan: continue home meds after confirmation BB started ore-op, continue same (8) PVD (peripheral vascular disease) Current Visit: Yes Status: Chronic Assessment and Plan: continue home meds (9) Multifocal atrial tachycardia Current Visit: Yes Status: Chronic Assessment and Plan: continue home meds when confirmed (10) COPD (chronic obstructive pulmonary disease) Current Visit: Yes Status: Chronic Assessment and Plan: DuoNeb prn continue home meds DVT Prophylaxis: lovenox - Time Spent with Patient Total time spent is greater than 50% in coordination of care (as documented) at patient's floor/unit and/or counseling patient: Plan of Care Discussed with: nurse Internal Medicine: Result - Labs CBC & Chem 7: 06/23/18 05:33 06/23/18 05:33 Labs: Short CBC 06/22/18 06/23/18 Range/Units 13:42 05:33 WBC 6.0 6.7 (4.3-11.1) K/mcL Hgb 10.7 L 11.3 L (11.5-15.4) g/dL Hct 33.9 L 35.5 (35.3-44.9) % Plt Count 342 363 (140-400) K/mcL Neutrophils # 2.8 3.3 (1.6-8.9) K/mcL BMP 06/22/18 06/23/18 13:42 05:33 Sodium 139 139 Potassium 4.6 4.0 Chloride 107 107 Carbon Dioxide 24 23 BUN 17 13 Creatinine 0.71 0.63 Glucose 172 H 138 H Calcium 9.3 9.6 - Impressions Impressions Hip X-Ray 06/22/18 14:36 IMPRESSION: 1. ORIF of the right femoral intertrochanteric neck fracture with improved alignment. D/ 06/22/2018 15:17:23 Mehdi Crouch [facility] / [facility] Interpreting Provider: Mehdi Crouch MD Consult Discharge Plan - Plan Referrals: NONE,PCP [Primary Care Provider] - (1) Cellulitis Qualifiers: Site of cellulitis: extremity Site of cellulitis of extremity: lower extremity Laterality: right Qualified Code(s): L03.115 - Cellulitis of right lower limb (3) Anemia Qualifiers: Anemia type: unspecified type Qualified Code(s): D64.9 - Anemia, unspecified (5) Diabetes mellitus Qualifiers: Diabetes mellitus type: type 2 Diabetes mellitus nursing home insulin use: without buttermaker continuous churn use Diabetes mellitus complication status: without complication Qualified Code(s): E11.9 - Type 2 diabetes mellitus without complications (6) Hyperlipidemia Qualifiers: Hyperlipidemia type: unspecified Qualified Code(s): E78.5 - Hyperlipidemia, unspecified (7) Hypertension Qualifiers: Hypertension type: essential hypertension Qualified Code(s): I10 - Essential (primary) hypertension (10) COPD (chronic obstructive pulmonary disease) Qualifiers: COPD type: unspecified COPD Qualified Code(s): J44.9 - Chronic obstructive pulmonary disease, unspecified
[2018-06-23] MEDS ORDERED: *HR* OxyCODONE Immed Rel 5 MG TABLET PO PRN ×2 (09:37→11:32)
[2018-06-23] MEDS ORDERED: *HR* Promethazine 25 MG/ML VIAL IVP PRN ×2 (09:37→11:32)
[2018-06-23] MEDS: *HR* HYDROmorphone (PF) 1 MG/ML SYRINGE IVP PRN ×4 (10:25→10:42)
[2018-06-23] MEDS ORDERED: Acetaminophen IV 1,000 MG/100 ML INFUS..BTL IVPB ONE (11:00)
--- NOTE | 2018-06-23 11:01 | Anesthesia Evaluation Post Op ---
Date of Encounter: 06/23/18 Time of Encounter: 11:01 - Vital Signs Vital Signs: Last Vital Signs Temp 98.0 F 06/23/18 10:48 Pulse 64 06/23/18 10:48 Resp 16 06/23/18 10:48 BP 144/49 06/23/18 10:48 Pulse Ox 99 06/23/18 10:48 - Lungs Lungs: Clear Ascult./Percussion - Airway Airway: Non-obstructed - Cardiovascular Regular Rate - Mental Status Mental Status: Alert & Oriented, Answers Appropriately - Pain Pain Scale: 5 - Nausea Vomiting Nausea Vomiting: Not Present - Hydration Hydration: NPO - Discharge PostOp Status: Transfer Patient to floor
[2018-06-23] MEDS ORDERED: Acetaminophen IV 1,000 MG/100 ML INFUS..BTL ONE (11:06)
[2018-06-23] MEDS ORDERED: Ipratropium/Albuterol Neb 3 ML IH PRN (11:32)
[2018-06-23] MEDS ORDERED: Naloxone 0.4 MG/ML INJ IVP PRN (11:32)
[2018-06-23] MEDS ORDERED: *HR* HYDROmorphone (PF) 1 MG/ML SYRINGE IVP PRN (11:32)
[2018-06-23] MEDS ORDERED: D5% in Water 1,000 ML IVC PRN (11:32)
[2018-06-23] MEDS ORDERED: *HR* Dextrose 50 % in Water (Syg) 50 ML SYRINGE IVP PRN (11:32)
[2018-06-23] MEDS ORDERED: Aztreonam 2,000 MG in Water for inj. (sterile) 20 ML 20 ML IVP STA (11:32)
[2018-06-23] MEDS ORDERED: Dextrose Gel 15 GM/37.5 ML TUBE PO PRN ×2 (11:32)
--- NOTE | 2018-06-23 12:54 | Orthopedic Operative Note ---
Date of procedure: 06/23/18 Procedure: OPERATIVE REPORT SURGEON: Giuliano Hazel MD PREOPERATIVE DIAGNOSIS: Infected right hip wound POSTOPERATIVE DIAGNOSIS: Infected wound to the right hip, deep PROCEDURE: Incision, drainage, irrigation, and debridement of the deep right hip wound infection ANESTHESIA: Gen. anesthesia SPECIMENS: Swabs sent for culture PREOPERATIVE NOTE The surgical plan was reviewed with the patient. The risks, benefits, alternatives, and potential complications of this procedure were discussed with the patient including injury to veins, arteries, nerves, tendons, ligaments, and bone. Also discussed were the risks of infection, bleeding, pain, blood clots, the possible need for a blood transfusion, the possible need for further procedures, heart attack, stroke, and . Additional risks include persistent infection despite surgery and the need for further debridements. All of this was explained in simple terms, and the patient verbalized understanding and wished to proceed. Consent was given to proceed with surgery. PROCEDURE: The patient was seen in the preoperative holding area where the identify and the consent were confirmed. The right hip was marked. Final questions were answered. The patient was brought back to the operating room and placed supine on the operating room table. A huddle was performed with the patient and all vital surgical team members confirming patient identity, the correct procedure, and the correct operative site. Gen. anesthesia was administered. The patient was placed in the left lateral decubitus position. The operative extremity was prepped and draped in the usual sterile fashion. A surgical time out was performed immediately preceding the incision with all personnel in the operating room to confirm patient identity, the correct operative site and extremity, correct radiographic studies, availability of appropriate surgical equipment, and agreement on the planned procedure. The proximal thigh wound was opened and dissection proceeded through the subcutaneous tissue. Immediately encountered was a pocket of fluid that did go below the level of the fascia. It was dark reddish and serosanguineous. This was swabbed for culture and evacuated. There was a small amount of necrotic fat which was sharply debrided. The proximal tip of the nail was not able to be palpated. The wound was copiously irrigated with 3 L of saline followed by Bactisure. A final liter of saline was irrigated through the wound and a 15-Setswana drain was placed deep within the wound and tunneled out distally. The deep layer was closed with 0 PDS and the skin was closed with 2-0 PDS and marina. A soft, sterile dressing was applied. The patient was placed back supine and moved under hospital bed in good condition. The instrument, sponge, and needle counts were correct after wound closure. POST OPERATIVE PLAN: Continue IV antibiotics in house and follow-up cultures. Was there an salon shampoo assistant present: No Estimated blood loss (cc): 1
[2018-06-23] MEDS ORDERED: Aztreonam 1,000 MG in Water for inj. (sterile) 20 ML 10 ML IVP SCH (16:00)
[2018-06-23] MEDS: Aztreonam 1,000 MG in Water for inj. (sterile) 20 ML 10 ML IVP SCH (16:51)
[2018-06-23] MEDS: Insulin LISPRO 300 UNITS/3 ML VIAL SQ SCH ×2 (16:54→22:19)
[2018-06-24] MEDS: Aztreonam 1,000 MG in Water for inj. (sterile) 20 ML 10 ML IVP SCH ×3 (01:36→16:51)
[2018-06-24 03:40] LABS: Basophils % 0.3 %; Eosinophils % 0.3 %; Hemoglobin 10.1 g/dL (11.5-15.4); Immature Granulocytes % 0.3 % (0-4); Lymphocytes # 2.6 K/mcL (0.6-4.6); Lymphocytes % 34.8 %; Mean Corpuscular HGB Conc 31.6 g/dL (31.6-35.5); Mean Platelet Volume 8.9 fL (9.4-12.4); Monocytes # 0.6 K/mcL (0.0-1.3); Monocytes % 7.5 %; Neutrophils # 4.3 K/mcL (1.6-8.9); Platelet Count 332 K/mcL (140-400); Red Blood Count 3.37 M/mcL (3.82-4.97); Red Cell Distribution Width 13.8 % (11.5-14.5); Segmented Neutrophils % 56.8 %
[2018-06-24 04:01] LABS: BUN/Creatinine Ratio 25 (6-26); Blood Urea Nitrogen 15 mg/dL (8-23); Calcium 9.2 mg/dL (8.6-10.3); Carbon Dioxide 24 mEq/L (23-29); Chloride 109 mEq/L (98-107); Glucose 126 mg/dL (70-105); Osmolality,Calculated 288 (280-300); Potassium 4.1 mEq/L (3.5-5.1); Sodium 138 mEq/L (136-145); eGFR For Non-African Americans > 60 (> 60)
[2018-06-24] MEDS: *HR* Enoxaparin 40 MG/0.4 ML SYRINGE SQ SCH (05:46)
[2018-06-24] MEDS: Insulin LISPRO 300 UNITS/3 ML VIAL SQ SCH ×4 (07:30→21:01)
--- NOTE | 2018-06-24 10:21 | Orthopedics Progress Note ---
Date of Encounter: 06/24/18 Time of Encounter: : - Assessment and Plan (1) Wound infection Current Visit: Yes Status: Acute Subjective Interval history: S: Resting comfortably in bed without significant O: Afebrile on the vital signs are stable Right hip dressing is taken down. The wound looks excellent without any drainage. Improving cellulitis No significant drainage and the Hemovac; drain is pulled No significant pain with passive motion of the hip She can dorsi flex implant flex ankle and toes and the foot is sensate and well- perfused A: Post I&D of the right hip wound P: Continue IV antibiotics for now, currently on aztreonam and vancomycin Cultures are pending Dressing change tomorrow Up to a chair TID Objective Vital signs: Vital Signs Temp Pulse Resp BP Pulse Ox 06/24/18 07:00 96 06/24/18 06:47 98 F 73 16 121/58 96 06/24/18 03:55 98.5 F 68 16 118/53 95 06/23/18 22:56 98.6 F 67 20 121/49 95 06/23/18 19:58 98.6 F 70 20 106/49 94 06/23/18 14:30 97.9 F 67 15 124/67 94 06/23/18 13:47 96 06/23/18 13:30 97.9 F 71 17 122/65 96 06/23/18 12:30 98 F 63 17 141/70 96 06/23/18 12:00 98.3 F 63 16 116/63 95 06/23/18 11:30 98.3 F 63 18 126/53 96 06/23/18 11:08 98.0 F 65 16 142/55 96 06/23/18 10:58 98.0 F 66 12 142/63 96 06/23/18 10:48 98.0 F 64 16 144/49 99 06/23/18 10:38 98.0 F 62 16 155/63 99 06/23/18 10:28 68 16 128/64 99 Intake and Output 06/23/18 06/24/18 06/24/18 23:59 07:59 15:59 Intake Total 650 / 650 260 / 260 Output Total 600 / 600 0 / 0 Balance 50 / 50 260 / 260 Intake: IV Fluids 260 / 260 Azactam 1,000 MG In Water for inj. (sterile) 10 ML @ 300 mls/ hr IVP Q8HR [facility] Rx#:[id number] Vancocin 1,250 MG In 0.9 % 250 / 250 Sodium Chloride 250 ML @ 100 mls/hr IVPB Q12H [facility] Rx#: [id number] Oral 640 / 640 0 / 0 Output: Urine 600 / 600 0 / 0 Other: Percent of Meal Consumed 75% Weight 74.28 kg Blood Glucose* 220 134 Patient Weight 06/24/18 23:59 Weight 74.28 kg - Labs CBC & BMP: 06/24/18 03:28 06/24/18 03:28 Labs: Abnormal lab results RBC 3.37 M/mcL (3.82-4.97) L 06/24/18 03:28 Hgb 10.1 g/dL (11.5-15.4) L 06/24/18 03:28 Hct 32.0 % (35.3-44.9) L 06/24/18 03:28 MPV 8.9 fL (9.4-12.4) L 06/24/18 03:28 Chloride 109 mEq/L (98-107) H 06/24/18 03:28 Glucose 126 mg/dL (70-105) H 06/24/18 03:28 POC Glucose 113 mg/dL (70-99) H 06/22/18 19:23 Consult Discharge Plan - Plan Referrals: NONE,PCP [Primary Care Provider] -
--- NOTE | 2018-06-24 10:32 | Internal Med Progress Note ---
Hospitalist Progress Note - Encounter Date of Encounter: 06/24/18 Time of Encounter: 10:32 - Subjective Interval History: 72 F admitted for wound infection of Right hip Orthopedics following and patient is post washout, incision and drainage 06/23 cultures pending Patient is on vancomycin and aztreonam She was seen this morning, no new complains Wound culture preliminary with GPC - Exam Vitals: Temp Pulse Resp BP Pulse Ox 98 F 73 16 121/58 96 06/24/18 06:47 06/24/18 06:47 06/24/18 06:47 06/24/18 06:47 06/24/18 07:00 Exam: GEN: NAD HEENT: AT, NC, No cyanosis, oral mucosa is dry, No JVD Eyes: Extraocular muscles intact, anicteric CVS: RRR. S1, S2, No m/r/g RESP: CTAB ABD: Soft, NT, ND, +BS. Extremities: There are 2 incision sites on the right lower extremity. Incision site on the right thigh appears to be healing well with no surrounding erythema or discharge marina are in place and intact. Dressing on right hip clean and dry, drain removed by Dr. Blount NEURO: Non-focal, CN II-XII intact, No focal motor or sensory deficits Psych: Cooperative, Not anxious or depressed - Assessment and Plan (1) Cellulitis Current Visit: Yes Status: Acute Assessment and Plan: s/p I and D and washout by ortho, 06/23 Continue vanco ansd azteronam-day 2 Blood cultures relim no growth Wound culture with GPC Continue pain control (2) Status post hip surgery Current Visit: Yes Status: Chronic Assessment and Plan: wound care per ortho Continue DT prophylaxis with SQ heparin PTOT eval OOB daily pain control (3) Anemia Current Visit: Yes Status: Chronic Assessment and Plan: Hemoglobin at time of discharge last month was 8.6, hemoglobin on admission 10 stable, continue to monitor (4) DVT prophylaxis Current Visit: Yes Status: Acute Assessment and Plan: Lovenox (5) Diabetes mellitus Current Visit: Yes Status: Chronic Assessment and Plan: SSI FS ACHS ADA diet (6) Hyperlipidemia Current Visit: Yes Status: Chronic Assessment and Plan: continue home meds (7) Hypertension Current Visit: Yes Status: Chronic Assessment and Plan: continue home meds (8) PVD (peripheral vascular disease) Current Visit: Yes Status: Chronic Assessment and Plan: continue home meds (9) Multifocal atrial tachycardia Current Visit: Yes Status: Chronic Assessment and Plan: continue home meds (10) COPD (chronic obstructive pulmonary disease) Current Visit: Yes Status: Chronic Assessment and Plan: DuoNeb prn continue home meds DVT Prophylaxis: lovenox - Time Spent with Patient Total time spent is greater than 50% in coordination of care (as documented) at patient's floor/unit and/or counseling patient: Plan of Care Discussed with: patient Internal Medicine: Result - Labs CBC & Chem 7: 06/24/18 03:28 06/24/18 03:28 Labs: Short CBC 06/24/18 Range/Units 03:28 WBC 7.5 (4.3-11.1) K/mcL Hgb 10.1 L (11.5-15.4) g/dL Hct 32.0 L (35.3-44.9) % Plt Count 332 (140-400) K/mcL Neutrophils # 4.3 (1.6-8.9) K/mcL BMP 06/24/18 03:28 Sodium 138 Potassium 4.1 Chloride 109 H Carbon Dioxide 24 BUN 15 Creatinine 0.61 Glucose 126 H Calcium 9.2 Consult Discharge Plan - Plan Referrals: NONE,PCP [Primary Care Provider] - (1) Cellulitis Qualifiers: Site of cellulitis: extremity Site of cellulitis of extremity: lower extremity Laterality: right Qualified Code(s): L03.115 - Cellulitis of right lower limb (3) Anemia Qualifiers: Anemia type: unspecified type Qualified Code(s): D64.9 - Anemia, unspecified (5) Diabetes mellitus Qualifiers: Diabetes mellitus type: type 2 Diabetes mellitus custodial insulin use: without custodial use Diabetes mellitus complication status: without complication Qualified Code(s): E11.9 - Type 2 diabetes mellitus without complications (6) Hyperlipidemia Qualifiers: Hyperlipidemia type: unspecified Qualified Code(s): E78.5 - Hyperlipidemia, unspecified (7) Hypertension Qualifiers: Hypertension type: essential hypertension Qualified Code(s): I10 - Essential (primary) hypertension (10) COPD (chronic obstructive pulmonary disease) Qualifiers: COPD type: unspecified COPD Qualified Code(s): J44.9 - Chronic obstructive pulmonary disease, unspecified
[2018-06-24] MEDS: *HR* HYDROmorphone (PF) 1 MG/ML SYRINGE IVP PRN ×2 (11:55→20:05)
[2018-06-24] MEDS ORDERED: NON-FORMULARY MEDICATION 1 EACH EACH (Melatonin [Melatonin] 5 MG) PO PRN (12:24)
[2018-06-24] MEDS: *HR* Metformin 500 MG TABLET PO SCH (16:51)
[2018-06-24] MEDS: *HR* Pioglitazone 15 MG TABLET PO SCH (16:51)
[2018-06-24] MEDS: Budesonide/Formoterol 160/4.5 1 PUFF INH IH SCH (19:44)
[2018-06-24] MEDS: Aspirin Enteric Coated 325 MG Tablet PO SCH (20:05)
[2018-06-24] MEDS: Famotidine 20 MG TABLET PO SCH (20:05)
[2018-06-24] MEDS: hydrOXYzine pamoate 25 MG CAPSULE PO SCH (20:05)
[2018-06-24] MEDS: EXENATIDE 10 MCG SQ SCH (20:06)
[2018-06-25] MEDS: Aztreonam 1,000 MG in Water for inj. (sterile) 20 ML 10 ML IVP SCH ×2 (00:44→10:18)
[2018-06-25 05:35] LABS: Basophils % 0.6 %; Eosinophils # 0.3 K/mcL (0.0-0.6); Eosinophils % 3.9 %; Hematocrit 32.4 % (35.3-44.9); Hemoglobin 10.1 g/dL (11.5-15.4); Immature Granulocytes % 0.3 % (0-4); Lymphocytes # 3.8 K/mcL (0.6-4.6); Lymphocytes % 52.5 %; Mean Corpuscular HGB Conc 31.2 g/dL (31.6-35.5); Mean Corpuscular Hemoglobin 30.1 pg (28.0-33.3); Mean Corpuscular Volume 96.4 fL (83.0-100.0); Monocytes # 0.5 K/mcL (0.0-1.3); Monocytes % 6.6 %; Neutrophils # 2.6 K/mcL (1.6-8.9); Platelet Count 302 K/mcL (140-400); Red Blood Count 3.36 M/mcL (3.82-4.97); Red Cell Distribution Width 14.2 % (11.5-14.5); Segmented Neutrophils % 36.1 %
[2018-06-25 05:59] LABS: BUN/Creatinine Ratio 23 (6-26); Blood Urea Nitrogen 16 mg/dL (8-23); Calcium 8.8 mg/dL (8.6-10.3); Carbon Dioxide 25 mEq/L (23-29); Chloride 111 mEq/L (98-107); Glucose 116 mg/dL (70-105); Osmolality,Calculated 294 (280-300); Potassium 4.2 mEq/L (3.5-5.1); Sodium 141 mEq/L (136-145); eGFR For Non-African Americans > 60 (> 60)
[2018-06-25] MEDS: *HR* Enoxaparin 40 MG/0.4 ML SYRINGE SQ SCH (06:52)
--- NOTE | 2018-06-25 07:43 | Orthopedics Progress Note ---
Date of Encounter: 06/25/18 Time of Encounter: 07:41 - Assessment and Plan (1) Wound infection Current Visit: Yes Status: Acute Subjective Interval history: S: The patient is sitting up in bed Pain is well-controlled with the right hip O: Afebrile on the vital signs are stable Right hip dressing is taken down. The wound looks excellent without any drainage. Improving cellulitis No significant pain with passive motion of the hip She can dorsi flex implant flex ankle and toes and the foot is sensate and well- perfused Gram-positive cocci noted in the wound culture A: Post I&D of the right hip wound P: Continue IV antibiotics for now, currently on aztreonam and vancomycin Cultures are pending Continue daily dressing changes Up to a chair TID Objective Vital signs: Vital Signs Temp Pulse Resp BP Pulse Ox 06/25/18 06:44 98.0 F 59 20 137/69 98 06/25/18 03:09 98.2 F 96 16 120/62 98 06/24/18 22:39 98.2 F 60 16 98/46 93 06/24/18 19:44 16 91 06/24/18 18:31 98.0 F 68 18 149/53 93 06/24/18 14:19 98.2 F 86 16 124/78 96 06/24/18 11:00 98.4 F 78 16 127/63 97 Intake and Output 06/24/18 06/24/18 06/25/18 15:59 23:59 07:59 Intake Total 210 / 210 610 / 610 0 / 0 Output Total 250 / 250 300 / 300 0 / 0 Balance -40 / -40 310 / 310 0 / 0 Intake: IV Fluids Azactam 1,000 MG In Water for inj. (sterile) 10 ML @ 300 mls/ hr IVP Q8HR [facility] Rx#:[id number] Oral 200 / 200 600 / 600 0 / 0 Output: Urine 250 / 250 300 / 300 0 / 0 Other: Meal Dinner Percent of Meal Consumed 80% # Voids 1 1 Weight 73.7 kg Blood Glucose* 159 155 108 Patient Weight 06/25/18 23:59 Weight 73.7 kg - Labs CBC & BMP: 06/25/18 04:58 06/25/18 04:58 Labs: Abnormal lab results RBC 3.36 M/mcL (3.82-4.97) L 06/25/18 04:58 Hgb 10.1 g/dL (11.5-15.4) L 06/25/18 04:58 Hct 32.4 % (35.3-44.9) L 06/25/18 04:58 MCHC 31.2 g/dL (31.6-35.5) L 06/25/18 04:58 MPV 9.0 fL (9.4-12.4) L 06/25/18 04:58 Chloride 111 mEq/L (98-107) H 06/25/18 04:58 Glucose 116 mg/dL (70-105) H 06/25/18 04:58 POC Glucose 134 mg/dL (70-99) H 06/24/18 07:12 Vancomycin Trough 18 mcg/mL (5-10) H 06/24/18 11:13 Consult Discharge Plan - Plan Referrals: NONE,PCP [Primary Care Provider] -
[2018-06-25] MEDS: Budesonide/Formoterol 160/4.5 1 PUFF INH IH SCH ×2 (07:56→19:48)
[2018-06-25] MEDS: Insulin LISPRO 300 UNITS/3 ML VIAL SQ SCH ×4 (08:05→20:23)
[2018-06-25] MEDS: BuPROPion XL (24 HR) 150 MG TABLET PO SCH (09:22)
[2018-06-25] MEDS: Famotidine 20 MG TABLET PO SCH ×2 (09:23→20:39)
[2018-06-25] MEDS: Diltiazem CD (24hr) 120 MG CAPSULE PO SCH (09:23)
[2018-06-25] MEDS: Acetaminophen 325 MG TABLET PO PRN ×2 (09:23→16:51)
[2018-06-25] MEDS: *HR* Metformin 500 MG TABLET PO SCH ×2 (09:23→16:51)
[2018-06-25] MEDS: hydrOXYzine pamoate 25 MG CAPSULE PO SCH ×2 (09:23→20:38)
[2018-06-25] MEDS: *HR* Pioglitazone 15 MG TABLET PO SCH ×2 (09:23→16:51)
[2018-06-25] MEDS: Aspirin Enteric Coated 325 MG Tablet PO SCH ×2 (09:24→20:39)
[2018-06-25] MEDS: (Umeclidinium Bromide [Incruse Ellipta] 1 PUFF) IH SCH (09:24)
[2018-06-25] MEDS: EXENATIDE 10 MCG SQ SCH ×2 (09:24→23:31)
[2018-06-25] MEDS: amLODIPine 5 MG TABLET PO SCH (09:24)
[2018-06-25] MEDS: *HR* HYDROmorphone (PF) 1 MG/ML SYRINGE IVP PRN ×2 (11:57→20:38)
--- NOTE | 2018-06-25 13:43 | Infectious Disease Consult ---
Date of Encounter: 06/25/18 Time of Encounter: 13:37 Assessment and Plan (1) Surgical wound infection Status: Acute Assessment and plan: Surgical wound of right hip open reduction internal fixation. Initial surgery was on 05/29/2018 where she underwent right hip nailing by Dr. Mcgowan. Patient tells me that T wound has been having serous drainage for a few days now Status post I&D on 06/23/2018 OR note reveals that the source sanguinous drainage did not go under the fascia Intra-Op cultures positive for enterococcus faecalis ampicillin sensitive Patient with severe allergic reaction to penicillin (anaphylaxis) Agree with vancomycin with goal vancomycin trough around 15 Duration of treatment likely for 4 weeks Patient will need a PICC line prior to discharge Monitor labs and for drug toxicity Monitor kidney function closely Discussed with Dr. Mcgowan (2) Allergy to multiple antibiotics Status: Acute Assessment and plan: Tells me she had a rash when she took penicillin when she had rheumatic fever when she was 8 denies ever taking amoxicillin and Augmentin or Keflex for Bactrim she had an allergic reaction about 15 years ago with a rash Infectious Disease HPI - Data of Consult Patient: new to practice Consult date: 06/25/18 Requesting Physician: Tomasa Garcia MD Primary Care Provider: PCP NONE - Consult Narrative Reason for consult: Incision wound infection with Enterococcus faecalis, penicillin allergy History of present illness: Ms. Wood is a 72 year old female Patient is a 72-year-old woman who presented to [facility] on 06/22/2018 as a transfer from intermediate facility with a wound infection. We are consulted 06/25/2018 for antibiotics recommendations. Patient is 72-year-old woman with past medical history mentioned below including diabetes mellitus type 2, hypertension, hyperlipidemia, history of recurrent falls who apparently had a right intertrochanteric hip fracture status post right hip nailing on 05/29/2018. Patient was [facility]. Patient apparently started having drainage and erythema around the surgical wound and came back to the hospital for evaluation. Unknown if the patient was having fevers or chills at SNF. Since admission, patient has been noted to be afebrile, no tachycardia and no tachypnea. Presenting labs revealed normal WBC with normal differential no bands. Normal BUN and creatinine. A right hip x-ray revealed a reduction internal fixation of the right femoral intratrochanteric neck fracture with improved alignment. Patient was taken to surgery on 06/23/2018 where she had incision and drainage irrigation and debridement of the right hip infection. Op note reveals that the serous fluid did go below the level of the fascia. It was dark reddish and serosanguineous. The proximal tip of the nail was not able to be palpated. Intra-Op cultures grew Enterococcus faecalis ampicillin sensitive. We were asked to evaluate the patient and make further recommendations. Currently patient laying in bed appears comfortable no acute distress she states that she feels better since she has been here. He denies any headache no chest pain no shortness of breath no nausea no vomiting no diarrhea no urinary symptoms no vaginal discharge. CC: Tomasa Garcia MD Past Med Surg Social Fam HX - Past Medical History Medical history: COPD, diabetes, hyperlipidemia, hypertension Additional medical history: rheumatic fever Psychiatric history: anxiety - Past Surgical History Surgical History: non-contributory Additional surgical history: lumpectomy to right breast, pin in right ankle - Social History Smoking Status: Former smoker Smokeless Tobacco Status: No Alcohol use: none Drug use: none - Family History Father Living Status: Mother Living Status: Hx Family Cardiac Disorders: Yes (HTN) Hx Family Respiratory Disorders: Yes (Emphysema) Hx Family Cancer: Yes (Breast) Hx Family GI Disorders: No Hx Family Endocrine Disorder: No Hx Family Neuromuscular Disorders: No Hx Family Neurologic Disorders: No Hx Family HEENT Disorders: No Hx Family Autoimmune Disorders: No Infectious Disease-CN:Meds RX: Bupropion HCl [Wellbutrin Xl] 300 mg PO DAILY 10/11/16 [History] RX: Cevimeline HCl [Evoxac] 30 mg PO TID 10/11/16 [History] RX: Cilostazol 50 mg PO BID 10/11/16 [History] RX: Clopidogrel [Plavix] 75 mg PO DAILY 10/11/16 [History] RX: Donepezil [Aricept] 10 mg PO Q48H 10/11/16 [History] RX: Famotidine [Pepcid] 40 mg PO BID 10/11/16 [History] RX: Medroxyprogesterone Acetate [Provera] 2.5 mg PO Q48H 10/11/16 [History] RX: Montelukast [Singulair] 10 mg PO DAILY 10/11/16 [History] RX: Nabumetone [Relafen] 500 mg PO BID 10/11/16 [History] RX: Pioglitazone HCl/Metformin HCl [Actoplus Met 15 mg-500 mg Tab] 1 each PO BID 10/11/16 [History] RX: Pravastatin Sodium [Pravachol] 40 mg PO HS 10/11/16 [History] RX: Sertraline [Zoloft] 200 mg PO QAM 10/11/16 [History] RX: Solifenacin Succinate [Vesicare] 10 mg PO DAILY 10/11/16 [History] RX: hydrOXYzine HCl [Hydroxyzine HCl] 25 mg PO BID 10/11/16 [History] RX: Acetaminophen [Tylenol] 650 mg PO Q6HR PRN #0 tablet 10/19/16 [Rx] RX: Budesonide/Formoterol 160/4.5 [Symbicort 160/4.5] 1 puff IH BIDR #1 hfa.aer.ad 10/19/16 [Rx] RX: Diltiazem CD (24hr) [Cardizem CD] 120 mg PO DAILY cap.er.24h 10/19/16 [Rx] RX: Ipratropium/Albuterol Neb [Duoneb] 3 ml IH [id number] PRN #0 inhsol 10/19/16 [Rx] RX: Lisinopril [Zestril] 20 mg PO DAILY tablet 10/19/16 [Rx] RX: Metoprolol [Lopressor] 25 mg PO BID tablet 10/19/16 [Rx] RX: amLODIPine [Norvasc] 10 mg PO DAILY tablet 10/19/16 [Rx] RX: Melatonin 5 mg PO HS PRN 05/28/18 [History] RX: Umeclidinium [place] [Incruse Ellipta] 1 puff IH DAILY 05/28/18 [History] RX: Albuterol Sulfate [Albuterol Inhaler] 2 puff PO Q6H PRN 05/29/18 [History] RX: Exenatide [Byetta] 10 mcg SQ BID 05/29/18 [History] RX: Aspirin Enteric Coated [Aspirin EC] 325 mg PO BID 28 Days #56 tablet. 06/04/18 [Rx] Allergy/AdvReac Type Severity Reaction Status Date / Time Penicillins Allergy Intermediate See Verified 06/25/18 12:54 Comments Sulfa (Sulfonamide Allergy Hives Verified 06/22/18 13:28 Antibiotics) codeine AdvReac Difficulty Verified 06/22/18 13:28 Breathing Review of systems: 10 point review of systems done, negative other for what mentioned in history of present illness Exam - Constitutional Vitals: Temp Pulse Resp BP Pulse Ox 98.5 F 74 18 134/67 95 06/25/18 10:54 06/25/18 10:54 06/25/18 10:54 06/25/18 10:54 06/25/18 10:54 General appearance: no acute distress, no febrile - Head Head exam: Present: atraumatic, normocephalic - Eye Eye exam: Present: EOMI, PERRL, sclera anicteric - ENT ENT exam: Present: mucous membranes dry, normal exam - Neck Neck exam: Present: full ROM. Absent: meningismus - Respiratory Respiratory exam: Present: CTAB. Absent: wheezes - Cardiovascular Cardiovascular exam: Present: RRR, +S1, +S2 - GI/Abdominal GI/Abdominal exam: Present: normal bowel sounds, soft. Absent: tenderness - Extremities Exam Additional comments: Right hip surgical wound intact - Back Exam Back exam: Absent: vertebral tenderness - Neurological Exam Neurological exam: Present: alert, oriented X3. Absent: speech deficit - Psychiatric Psychiatric exam: Present: normal affect, normal mood - Skin Skin exam: Present: normal color. Absent: rash Infectious Disease CN: Results - Labs CBC & Chem 7: 06/25/18 04:58 06/25/18 04:58 Cultures: Cultures 06/23/18 09:29 Wound Culture - Final Right Hip Enterococcus faecalis 06/22/18 16:43 Wound Culture - Final Incision No pathogens isolated. 06/22/18 16:21 Blood Culture - Preliminary Peripheral Venipuncture Culture is incubating and being continuously monitored for growth. Final report to follow. 06/22/18 16:21 Blood Culture - Preliminary Peripheral Venipuncture Culture is incubating and being continuously monitored for growth. Final report to follow. Consult Discharge Plan - Plan Referrals: NONE,PCP [Primary Care Provider] -
--- NOTE | 2018-06-25 13:51 | Internal Med Progress Note ---
Hospitalist Progress Note - Encounter Date of Encounter: 06/25/18 Time of Encounter: 13:49 - Subjective Interval History: 72 F admitted for wound infection of Right hip Orthopedics following and patient is post washout, incision and drainage 06/23 Wound culture with enterococcus fecalis Patient was on vancomycin and aztreonam Will discontinue Aztreonam, patient is allergic to penicillin (angioedema) Will continue vancomycin-will consult infectious disease for recommendation for duration of treatment She was seen this morning, no new complains Per PTOT, she may be discharged with home health - Exam Vitals: Temp Pulse Resp BP Pulse Ox 98.5 F 74 18 134/67 95 06/25/18 10:54 06/25/18 10:54 06/25/18 10:54 06/25/18 10:54 06/25/18 10:54 Exam: GEN: NAD HEENT: AT, NC, No cyanosis, oral mucosa is dry, No JVD Eyes: Extraocular muscles intact, anicteric CVS: RRR. S1, S2, No m/r/g RESP: CTAB ABD: Soft, NT, ND, +BS. Extremities: There are 2 incision sites on the right lower extremity. Incision site on the right thigh appears to be healing well with no surrounding erythema or discharge [place] are in place and intact. Dressing on right hip clean and dry NEURO: Non-focal, CN II-XII intact, No focal motor or sensory deficits Psych: Cooperative, Not anxious or depressed - Assessment and Plan (1) Cellulitis Current Visit: Yes Status: Acute (2) Status post hip surgery Current Visit: Yes Status: Chronic (3) Anemia Current Visit: Yes Status: Chronic (4) DVT prophylaxis Current Visit: Yes Status: Acute Assessment and Plan: Lovenox (5) Diabetes mellitus Current Visit: Yes Status: Chronic Assessment and Plan: SSI FS ACHS ADA diet (6) Hyperlipidemia Current Visit: Yes Status: Chronic Assessment and Plan: continue home meds (7) Hypertension Current Visit: Yes Status: Chronic Assessment and Plan: continue home meds (8) PVD (peripheral vascular disease) Current Visit: Yes Status: Chronic Assessment and Plan: continue home meds (9) Multifocal atrial tachycardia Current Visit: Yes Status: Chronic Assessment and Plan: continue home meds (10) COPD (chronic obstructive pulmonary disease) Current Visit: Yes Status: Chronic Assessment and Plan: DuoNeb prn continue home meds DVT Prophylaxis: lovenox - Time Spent with Patient Total time spent is greater than 50% in coordination of care (as documented) at patient's floor/unit and/or counseling patient: Plan of Care Discussed with: patient Internal Medicine: Result - Labs CBC & Chem 7: 06/25/18 04:58 06/25/18 04:58 Labs: Short CBC 06/25/18 Range/Units 04:58 WBC 7.1 (4.3-11.1) K/mcL Hgb 10.1 L (11.5-15.4) g/dL Hct 32.4 L (35.3-44.9) % Plt Count 302 (140-400) K/mcL Neutrophils # 2.6 (1.6-8.9) K/mcL BMP 06/25/18 04:58 Sodium 141 Potassium 4.2 Chloride 111 H Carbon Dioxide 25 BUN 16 Creatinine 0.71 Glucose 116 H Calcium 8.8 Consult Discharge Plan - Plan Referrals: NONE,PCP [Primary Care Provider] - (1) Cellulitis Qualifiers: Site of cellulitis: extremity Site of cellulitis of extremity: lower extremity Laterality: right Qualified Code(s): L03.115 - Cellulitis of right lower limb (3) Anemia Qualifiers: Anemia type: unspecified type Qualified Code(s): D64.9 - Anemia, unspecified (5) Diabetes mellitus Qualifiers: Diabetes mellitus type: type 2 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
[2018-06-26] MEDS: Acetaminophen 325 MG TABLET PO PRN ×3 (00:10→18:53)
[2018-06-26] MEDS: *HR* HYDROmorphone (PF) 1 MG/ML SYRINGE IVP PRN ×2 (03:04→13:57)
[2018-06-26 03:44] LABS: BUN/Creatinine Ratio 22 (6-26); Blood Urea Nitrogen 14 mg/dL (8-23); Carbon Dioxide 20 mEq/L (23-29); Chloride 110 mEq/L (98-107); Glucose 119 mg/dL (70-105); Osmolality,Calculated 290 (280-300); Potassium 4.4 mEq/L (3.5-5.1); Sodium 139 mEq/L (136-145); eGFR For Non-African Americans > 60 (> 60)
[2018-06-26] MEDS: Melatonin 3 MG TABLET PO PRN ×2 (04:14→20:14)
[2018-06-26] MEDS: *HR* Enoxaparin 40 MG/0.4 ML SYRINGE SQ SCH (05:43)
[2018-06-26] MEDS: Insulin LISPRO 300 UNITS/3 ML VIAL SQ SCH ×4 (07:37→20:35)
[2018-06-26] MEDS: Budesonide/Formoterol 160/4.5 1 PUFF INH IH SCH ×2 (07:53→21:49)
[2018-06-26] MEDS: Aspirin Enteric Coated 325 MG Tablet PO SCH ×2 (08:33→20:11)
[2018-06-26] MEDS: BuPROPion XL (24 HR) 150 MG TABLET PO SCH (08:34)
[2018-06-26] MEDS: amLODIPine 5 MG TABLET PO SCH (08:34)
[2018-06-26] MEDS: *HR* Metformin 500 MG TABLET PO SCH ×2 (08:34→16:34)
[2018-06-26] MEDS: Diltiazem CD (24hr) 120 MG CAPSULE PO SCH (08:35)
[2018-06-26] MEDS: *HR* Pioglitazone 15 MG TABLET PO SCH ×2 (08:35→16:34)
[2018-06-26] MEDS: Famotidine 20 MG TABLET PO SCH ×2 (08:35→20:11)
[2018-06-26] MEDS: hydrOXYzine pamoate 25 MG CAPSULE PO SCH ×2 (08:35→20:11)
--- NOTE | 2018-06-26 10:26 | Discharge Summary ---
- NOTES TO OUTPATIENT PROVIDER Notes to Outpatient Provider: Patient with recent right hip fracture s/p intramedullary nail insertion was admitted for infected R hip wound. Underwent I&D and irrigation on 06/23 uneventfully. Culture +ve for E. faecalis and due to pt's allergy to PCN, she will be discharged home on IV VAnc. CBC, BUN/Cr weekly and follow up with ID and orthopedics as outpatient. Orders not resulted at time of discharge: Pending orders 06/22/18 16:21 Culture,Blood [BC] Stat 06/23/18 09:29 Culture,Anaerobic [RM] Routine 06/26/18 11:00 Vancomycin,Trough Timed Date of Encounter: 06/26/18 Time of Encounter: 08:15 - Discharge Diagnosis (1) DVT prophylaxis Priority: Secondary Status: Acute (2) Multifocal atrial tachycardia Priority: Secondary Status: Chronic (3) Hypertension Priority: Secondary Status: Chronic Qualifiers: Hypertension type: essential hypertension Qualified Code(s): I10 - Essential (primary) hypertension (4) Hyperlipidemia Priority: Secondary Status: Chronic Qualifiers: Hyperlipidemia type: unspecified Qualified Code(s): E78.5 - Hyperlipidemia, unspecified (5) Diabetes mellitus Priority: Secondary Status: Chronic Qualifiers: Diabetes mellitus type: type 2 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 insulin use: without custodial use Diabetes mellitus complication status: without complication Qualified Code(s): E11.9 - Type 2 diabetes mellitus without complications (6) PVD (peripheral vascular disease) Priority: Secondary Status: Chronic (7) Anemia Priority: Secondary Status: Chronic Qualifiers: Anemia type: unspecified type Qualified Code(s): D64.9 - Anemia, unspecified (8) Cellulitis Priority: Primary Status: Acute Qualifiers: Site of cellulitis: extremity Site of cellulitis of extremity: lower extremity Laterality: right Qualified Code(s): L03.115 - Cellulitis of right lower limb (9) Status post hip surgery Priority: Secondary Status: Chronic (10) COPD (chronic obstructive pulmonary disease) Priority: Secondary Status: Chronic Qualifiers: COPD type: unspecified COPD Qualified Code(s): J44.9 - Chronic obstructive pulmonary disease, unspecified Hospital course: Ms. Wood is a 72 year old female with recent right hip fracture s/p intramedullary nail insertion who was admitted for infected R hip wound. Underwent I&D and irrigation on 06/23 uneventfully. Culture +ve for E. faecalis and due to pt's allergy to PCN, she will be discharged home on IV VAnc. CBC, BUN/Cr weekly and follow up with ID and orthopedics as outpatient. Discharge discussed with: patient, nurse - Time Spent with Patient Total time spent providing and/or coordinating discharge services: 35 mins - Discharge Medications Prescriptions: Vancomycin/0.9 % Sod Chloride [Vancomycin 1 G/100Ml-0.9% NaCl] 1 gm IV Q12H 24 Days #48 plast..bag Home Medications: Bupropion HCl [Wellbutrin Xl] 300 mg PO DAILY 10/11/16 [History] Cevimeline HCl [Evoxac] 30 mg PO TID 10/11/16 [History] Cilostazol 50 mg PO BID 10/11/16 [History] Clopidogrel [Plavix] 75 mg PO DAILY 10/11/16 [History] Donepezil [Aricept] 10 mg PO Q48H 10/11/16 [History] Famotidine [Pepcid] 40 mg PO BID 10/11/16 [History] Medroxyprogesterone Acetate [Provera] 2.5 mg PO Q48H 10/11/16 [History] Montelukast [Singulair] 10 mg PO DAILY 10/11/16 [History] Nabumetone [Relafen] 500 mg PO BID 10/11/16 [History] Pioglitazone HCl/Metformin HCl [Actoplus Met 15 mg-500 mg Tab] 1 each PO BID 10/11/16 [History] Pravastatin Sodium [Pravachol] 40 mg PO HS 10/11/16 [History] Sertraline [Zoloft] 200 mg PO QAM 10/11/16 [History] Solifenacin Succinate [Vesicare] 10 mg PO DAILY 10/11/16 [History] hydrOXYzine HCl [Hydroxyzine HCl] 25 mg PO BID 10/11/16 [History] Acetaminophen [Tylenol] 650 mg PO Q6HR PRN #0 tablet 10/19/16 [Rx] Budesonide/Formoterol 160/4.5 [Symbicort 160/4.5] 1 puff IH BIDR #1 hfa.aer.ad 10/19/16 [Rx] Diltiazem CD (24hr) [Cardizem CD] 120 mg PO DAILY cap.er.24h 10/19/16 [Rx] Ipratropium/Albuterol Neb [Duoneb] 3 ml IH [id number] PRN #0 inhsol 10/19/16 [Rx] Lisinopril [Zestril] 20 mg PO DAILY tablet 10/19/16 [Rx] Metoprolol [Lopressor] 25 mg PO BID tablet 10/19/16 [Rx] amLODIPine [Norvasc] 10 mg PO DAILY tablet 10/19/16 [Rx] Melatonin 5 mg PO HS PRN 05/28/18 [History] Umeclidinium [place] [Incruse Ellipta] 1 puff IH DAILY 05/28/18 [History] Albuterol Sulfate [Albuterol Inhaler] 2 puff PO Q6H PRN 05/29/18 [History] Exenatide [Byetta] 10 mcg SQ BID 05/29/18 [History] Aspirin Enteric Coated [Aspirin EC] 325 mg PO BID 28 Days #56 tablet. 06/04/18 [Rx] Vancomycin/0.9 % Sod Chloride [Vancomycin 1 G/100Ml-0.9% NaCl] 1 gm IV Q12H 24 Days #48 plast..bag 06/26/18 [Rx] Allergies/Adverse Reactions: Allergy/AdvReac Type Severity Reaction Status Date / Time Penicillins Allergy Intermediate See Verified 06/25/18 12:54 Comments Sulfa (Sulfonamide Allergy Hives Verified 06/22/18 13:28 Antibiotics) codeine AdvReac Difficulty Verified 06/22/18 13:28 Breathing Date of admission: 06/22/18 16:30 Primary care physician: PCP NONE Consults: 06/22/18 16:32 Consult to Occupational Therapy [CONS] Routine Comment: Evaluate, develop and implement POC Reason for Consult: History of hip surgery, wound infection Does patient have active BEDREST order?: No Is patient medically & hemodynamically stable?: Yes Consult to Physical Therapy [CONS] Routine Comment: Evaluate, develop and implement POC Reason for Consult: Hip surgery, wound infection Does patient have active BEDREST order?: No Is patient medically & hemodynamically stable?: Yes 06/22/18 17:22 Consult to Orthopedic Surgery [CONS] Routine Consulting Provider: Orthopedic and Sports Medicine Reason for Consult: Infected incision wound s/p hip nailing Call Completed: Yes 06/24/18 18:26 Consult to Paper Bag Press Operator [CONS] Routine Reason for SW Consult: discharge planning 06/25/18 12:51 Consult to Infectious Diseases [CONS] Routine Consulting Provider: Infectious Disease Kristie Reason for Consult: Patient with incision wound infection with Enterococcus faecalis, with penicillin allergy. Kindly evaluate for antibiotic recommendation and duration. Thank you. Call Completed: Yes 06/25/18 14:32 PICC [Consult to Invasive Line Access Team] [CONS] Routine Reason for Consult: Prolonged antibiotic therapy Line Type: PICC - Constitutional Vitals: Temp Pulse Resp BP Pulse Ox 98.5 F 58 15 102/58 99 06/26/18 09:35 06/26/18 09:35 06/26/18 09:35 06/26/18 09:35 06/26/18 09:35 General appearance: Present: A&O X 3, pleasant, no acute distress Exam: GEN: NAD CVS: RRR. S1, S2, No m/r/g RESP: CTAB ABD: Soft, NT, ND, +BS. Extremities: Dressing on right hip clean and dry - Patient Status Disposition: Home Health Service Condition: Good Overall status at discharge: patient is progressing back to baseline - Discharge Instructions Instructions: Cellulitis (DC), Chronic Obstructive Pulmonary Disease (DC), Diabetes Mellitus Type 2 in Adults (DC), Chronic Hypertension (DC) Follow Up With: NONE,PCP [Primary Care Provider] - Giuliano Hazel MD [Partnered Physician] - Kyle Crawford MD [Partnered Physician] - Additional Instructions: IV Vanc for 4 weeks, CBC/BUN/Cr weekly and follow with ID FOllow up with orthopedics as outpatient - Diet and Activity Activity: as per physical therapy Diet: diabetic diet
--- NOTE | 2018-06-26 11:23 | Infectious Disease Progress No ---
Date of Encounter: 06/26/18 Time of Encounter: 11:21 - Assessment and Plan (1) Surgical wound infection Current Visit: Yes Status: Acute Location: Right hip. Causative organism: Enterococcus faecalis. Likely secondary to recent surgical procedure. Status post right hip IM nailing 05/29/[address] Mcgowan. Status post I&D on 06/23/18. Intraoperative cultures as stated above. Operative note indicates that there was serosanguineous drainage that did pen etrate the fascia but did not appear to communicate with the hardware. The patient's penicillin allergy limits our ability to use ampicillin. Currently on IV vancomycin. Recommendations: Wound care and activity restrictions per the orthopedics team. Continue vancomycin IV. Pharmacy to dose. Goal trough approximately 15. Duration of treatment depends on the clinical picture, but likely a total of 4 weeks. Monitor renal and for drug toxicity and dose-adjust antibiotics. sales agent business services to assist with discharge planning. Per nursing, home health has declined the patient due to her poor living conditions at home. Consult vascular access team to exchange the EPIV for a PICC line. Will need weekly CBC, BUN/creatinine, ESR, CRP, and Vanc trough. We will need weekly PICC care per protocol. Follow-up with ID 07/18/18 at 1405. (2) Allergy to multiple antibiotics Current Visit: Yes Status: Acute - Subjective Interval history: Patient seen and examined. No acute events noted overnight. Patient complains of pain in the right hip. She denies any fevers or chills or rigors. She de nies any chest pain, shortness of breath, or cough. She denies any nausea, vomiting, diarrhea, or constipation. She reports her last bowel movement was yesterday. She denies abdominal pain or urinary complaints. She denies oral thrush or any skin lesions. Infect Dis PN-Objective Data - Labs CBC & Chem 7: 06/25/18 04:58 06/26/18 03:12 Labs: Laboratory Results - last 24 hr 06/24/18 06/24/18 06/24/18 11:39 16:42 20:56 Sodium Potassium Chloride Carbon Dioxide BUN Creatinine Est GFR ( Amer) Est GFR (Non-Af Amer) BUN/Creatinine Ratio Glucose POC Glucose 159 H 111 H 155 H Calculated Osmolality Calcium 06/25/18 06/25/18 06/25/18 06:59 10:58 16:44 Sodium Potassium Chloride Carbon Dioxide BUN Creatinine Est GFR ( Amer) Est GFR (Non-Af Amer) BUN/Creatinine Ratio Glucose POC Glucose 108 H 218 H 91 Calculated Osmolality Calcium 06/26/18 03:12 Sodium 139 Potassium 4.4 Chloride 110 H Carbon Dioxide 20 L BUN 14 Creatinine 0.64 Est GFR ( Amer) > 60 Est GFR (Non-Af Amer) > 60 BUN/Creatinine Ratio 22 Glucose 119 H POC Glucose Calculated Osmolality 290 Calcium 9.0 Cultures: Cultures 06/23/18 09:29 Anaerobic Culture - Preliminary Right Hip At this time, no anaerobic growth is present. The culture will be finalized after 5 days of incubation. 06/23/18 09:29 Wound Culture - Final Right Hip Enterococcus faecalis 06/22/18 16:43 Wound Culture - Final Incision No pathogens isolated. 06/22/18 16:21 Blood Culture - Preliminary Peripheral Venipuncture Culture is incubating and being continuously monitored for growth. Final report to follow. 06/22/18 16:21 Blood Culture - Preliminary Peripheral Venipuncture Culture is incubating and being continuously monitored for growth. Final report to follow. Exam - Constitutional Vitals: Temp Pulse Resp BP Pulse Ox 98.5 F 58 15 102/58 99 06/26/18 09:35 06/26/18 09:35 06/26/18 09:35 06/26/18 09:35 06/26/18 09:35 General appearance: average body habitus, cooperative, no acute distress - Head Head exam: Present: atraumatic, normal inspection, normocephalic - Eye Eye exam: Present: EOMI, normal appearance, PERRL Pupils: Present: normal accommodation - ENT ENT exam: Present: mucous membranes moist - Neck Neck exam: Present: normal inspection - Respiratory Respiratory exam: Present: CTAB. Absent: rales, respiratory distress, rhonchi, wheezes - Cardiovascular Cardiovascular exam: Present: RRR, +S1, +S2 - GI/Abdominal GI/Abdominal exam: Present: normal bowel sounds, soft. Absent: distended, tenderness - Extremities Exam Extremities exam: Present: tenderness (right hip.). Absent: normal inspection (Right hip dressing C/D/I.), pedal edema - Neurological Exam Neurological exam: Present: alert, oriented X3, no focal deficits - Psychiatric Psychiatric exam: Present: normal affect, normal mood - Skin Skin exam: Present: dry, intact, normal color, warm Consult Discharge Plan - Plan Instructions: Cellulitis (DC), Diabetes Mellitus Type 2 in Adults (DC), Chronic Obstructive Pulmonary Disease (DC), Chronic Hypertension (DC) Additional Instructions: DISCHARGE INSTRUCTIONS Dr. Hazel DISCHARGE DIAGNOSIS/PROCEDURE Right wound hip I&D ACTIVITY: Weight bearing as tolerated on the bilateral lower extremities Consult discuss therapy to diagnose and treat, ambulate with a walker. WOUND CARE: Daily dressing changes with dry gauze and paper tape or Medipore tape. MEDICATIONS: Antibiotics: See below per the infectious disease specialist. Aspirin: Aspirin 325 mg by mouth twice a day for DVT prophylaxis 2 weeks FOLLOW-UP Follow-up with Dr. Hazel or Dawn Nielsen PA-C at the office on 07/05/18 for a post operative evaluation. Call the office at [phone] to schedule or confirm your appointment. WHEN TO CALL THE DOCTOR OR WHEN TO SEEK CARE BEFORE YOUR APPOINTMENT 1. Excess swelling or increased numbness not made better by elevating the hand and moving the fingers. 2. Uncontrolled pain. 3. A color change in your hand or fingers. 4. Worsening redness or drainage. 5. Fevers over 100.5 degrees F or 38.1 degrees C. 6. Any symptoms that bring concern to you. Note from ID specialist: IV Vanc for 4 weeks, CBC/BUN/Cr weekly and follow with ID Referrals: NONE,PCP [Primary Care Provider] - Giuliano Hazel MD [Partnered Physician] - Leigha Monk SHEEPSKIN PICKLER [Advanced Practice Nurse] - 07/18/18 2:05 pm Prescriptions: Vancomycin/0.9 % Sod Chloride [Vancomycin 1 G/100Ml-0.9% NaCl] 1 gm IV Q12H 24 Days #48 plast..bag - Attending Attestation I examined this patient and my medical decision-making was reviewed with the Resident Physician. I agree with the documented findings, disposition and treatment plan as described except to the extent set forth below.
[2018-06-26] MEDS: EXENATIDE 10 MCG SQ SCH ×2 (12:48→20:14)
[2018-06-26] MEDS: (Umeclidinium Bromide [Incruse Ellipta] 1 PUFF) IH SCH (12:48)
--- NOTE | 2018-06-26 12:57 | Orthopedics Progress Note ---
Date of Encounter: 06/26/18 Time of Encounter: 07:00 - Assessment and Plan (1) Wound infection Current Visit: Yes Status: Acute Subjective Interval history: S: The patient is sitting up in bed Pain is well-controlled with the right hip O: Afebrile on the vital signs are stable Right hip dressing is taken down. The wound looks excellent without any drainage. Improving cellulitis No significant pain with passive motion of the hip She can dorsi flex implant flex ankle and toes and the foot is sensate and well- perfused Enterococcus noted on cultures A: Post I&D of the right hip wound P: I appreciate the advice of the infectious disease specialists She will give 4 weeks of IV vancomycin Given risk of wound healing I discontinued the Lovenox as she is are getting aspirin 325 mg by mouth twice a day. Recommend continuing the aspirin for another 2 weeks postoperatively Objective Vital signs: Vital Signs Temp Pulse Resp BP Pulse Ox 06/26/18 12:36 97.7 F 67 16 113/60 97 06/26/18 09:35 98.5 F 58 15 102/58 99 06/26/18 07:53 16 95 06/26/18 07:18 97.9 F 96 16 113/63 94 06/25/18 23:10 98.1 F 62 16 101/56 97 06/25/18 20:45 97 06/25/18 19:48 15 97 06/25/18 18:53 98.2 F 63 14 105/75 90 06/25/18 15:18 98.1 F 65 20 115/58 95 Intake and Output 06/25/18 06/26/18 06/26/18 23:59 07:59 15:59 Intake Total 600 / 600 360 / 360 Output Total 300 / 300 Balance 600 / 600 60 / 60 Intake: Oral 600 / 600 360 / 360 Output: Urine 300 / 300 Other: Meal Breakfast Percent of Meal Consumed 100% # Voids 1 1 Blood Glucose* 157 107 126 - Labs CBC & BMP: 06/25/18 04:58 06/26/18 03:12 Labs: Abnormal lab results RBC 3.36 M/mcL (3.82-4.97) L 06/25/18 04:58 Hgb 10.1 g/dL (11.5-15.4) L 06/25/18 04:58 Hct 32.4 % (35.3-44.9) L 06/25/18 04:58 MCHC 31.2 g/dL (31.6-35.5) L 06/25/18 04:58 MPV 9.0 fL (9.4-12.4) L 06/25/18 04:58 Chloride 110 mEq/L (98-107) H 06/26/18 03:12 Carbon Dioxide 20 mEq/L (23-29) L 06/26/18 03:12 Glucose 119 mg/dL (70-105) H 06/26/18 03:12 Vancomycin Trough 18 mcg/mL (5-10) H 06/26/18 11:05 Consult Discharge Plan - Plan Instructions: Cellulitis (DC), Diabetes Mellitus Type 2 in Adults (DC), Chronic Obstructive Pulmonary Disease (DC), Chronic Hypertension (DC) Additional Instructions: DISCHARGE INSTRUCTIONS Dr. Hazel DISCHARGE DIAGNOSIS/PROCEDURE Right wound hip I&D ACTIVITY: Weight bearing as tolerated on the bilateral lower extremities Consult discuss therapy to diagnose and treat, ambulate with a walker. WOUND CARE: Daily dressing changes with dry gauze and paper tape or Medipore tape. MEDICATIONS: Antibiotics: See below per the infectious disease specialist. Aspirin: Aspirin 325 mg by mouth twice a day for DVT prophylaxis 2 weeks FOLLOW-UP Follow-up with Dr. Hazel or Dawn Nielsen PA-C at the office on 07/05/18 for a post operative evaluation. Call the office at [phone] to schedule or confirm your appointment. WHEN TO CALL THE DOCTOR OR WHEN TO SEEK CARE BEFORE YOUR APPOINTMENT 1. Excess swelling or increased numbness not made better by elevating the hand and moving the fingers. 2. Uncontrolled pain. 3. A color change in your hand or fingers. 4. Worsening redness or drainage. 5. Fevers over 100.5 degrees F or 38.1 degrees C. 6. Any symptoms that bring concern to you. Note from ID specialist: IV Vanc for 4 weeks, CBC/BUN/Cr weekly and follow with ID Referrals: Leigha Monk CNP [Advanced Practice Nurse] - 07/18/18 2:05 pm NONE,PCP [Primary Care Provider] - Giuliano Hazel MD [Partnered Physician] - Prescriptions: Vancomycin/0.9 % Sod Chloride [Vancomycin 1 G/100Ml-0.9% NaCl] 1 gm IV Q12H 24 Days #48 plast..bag
--- NOTE | 2018-06-26 14:40 | Physician Discharge Referral ---
ExtendedCare Referral Info Institutional Level of Care: Skilled - Diagnosis (1) DVT prophylaxis Priority: Secondary Status: Acute (2) Multifocal atrial tachycardia Priority: Secondary Status: Chronic (3) Hypertension Priority: Secondary Status: Chronic (4) Hyperlipidemia Priority: Secondary Status: Chronic (5) Diabetes mellitus Priority: Secondary Status: Chronic (6) PVD (peripheral vascular disease) Priority: Secondary Status: Chronic (7) Anemia Priority: Secondary Status: Chronic (8) Cellulitis Priority: Primary Status: Acute (9) Status post hip surgery Priority: Secondary Status: Chronic (10) COPD (chronic obstructive pulmonary disease) Priority: Secondary Status: Chronic Prognosis: Fair - Transfer Medications Prescriptions: Vancomycin/0.9 % Sod Chloride [Vancomycin 1 G/100Ml-0.9% NaCl] 1 gm IV Q12H 24 Days #48 plast..bag Home Medications: Montelukast [Singulair] 10 mg PO DAILY 10/11/16 [History] Nabumetone [Relafen] 500 mg PO BID 10/11/16 [History] Pravastatin Sodium [Pravachol] 40 mg PO HS 10/11/16 [History] Sertraline [Zoloft] 200 mg PO QAM 10/11/16 [History] hydrOXYzine HCl [Hydroxyzine HCl] 25 mg PO BID 10/11/16 [History] Acetaminophen [Tylenol] 650 mg PO Q6HR PRN #0 tablet 10/19/16 [Rx] Diltiazem CD (24hr) [Cardizem CD] 120 mg PO DAILY cap.er.24h 10/19/16 [Rx] Ipratropium/Albuterol Neb [Duoneb] 3 ml IH [id number] PRN #0 inhsol 10/19/16 [Rx] Lisinopril [Zestril] 20 mg PO DAILY tablet 10/19/16 [Rx] Metoprolol [Lopressor] 25 mg PO BID tablet 10/19/16 [Rx] amLODIPine [Norvasc] 10 mg PO DAILY tablet 10/19/16 [Rx] Melatonin 5 mg PO HS PRN 05/28/18 [History] Umeclidinium [place] [Incruse Ellipta] 1 puff IH DAILY 05/28/18 [History] Albuterol Sulfate [Albuterol Inhaler] 2 puff PO Q6H PRN 05/29/18 [History] Exenatide [Byetta] 10 mcg SQ BID 05/29/18 [History] Aspirin Enteric Coated [Aspirin EC] 325 mg PO BID 28 Days #56 tablet. 06/04/18 [Rx] Fluticasone/Vilanterol [Breo Ellipta 200-25 Mcg INH] 1 puff IH QAM 06/26/18 [History] Hydrocodone/Acetaminophen [[place] 7.5-325 Tablet] 1 tab PO QID 06/26/18 [History] Oxybutynin Chloride [Ditropan Xl] 10 mg PO QAM 06/26/18 [History] Vancomycin/0.9 % Sod Chloride [Vancomycin 1 G/100Ml-0.9% NaCl] 1 gm IV Q12H 24 Days #48 plast..bag 06/26/18 [Rx] metFORMIN [Glucophage] 500 mg PO BIDWM 06/26/18 [History] Allergies/Adverse Reactions: Allergy/AdvReac Type Severity Reaction Status Date / Time Penicillins Allergy Intermediate See Verified 06/25/18 12:54 Comments Sulfa (Sulfonamide Allergy Hives Verified 06/22/18 13:28 Antibiotics) codeine AdvReac Difficulty Verified 06/22/18 13:28 Breathing - Respiratory Orders Smoking Cessation: Smoking cessation has been advised. For more information, call the [place] Tobacco Quit Line at 8-373-BKTM-NOW. - Rehabiliation Orders Rehab Orders: Evaluation for Physical Therapy, Evaluation for Occupational Therapy - Treatments List/Other: IV Vanc for 4 weeks CBC, BUN/Cr, vanc trough weekly and fax to ID - Diet Orders No Concentrated Sweets CERTIFICATION: I certify that the transfer of the above named patient to an Extended Care Facility is necessary for the continuing treatment of the diagnosis listed. The above information is true and accurate reflection of patient's current condition. Confidential - Redisclosure prohibited without a patient's written consent.
[2018-06-26] MEDS ORDERED: Vancomycin 500 MG in 0.9 % Sodium Chloride Mini Bag 100 ML IVPB ONE (15:01)
[2018-06-26] MEDS: *HR* OxyCODONE Immed Rel 5 MG TABLET PO PRN (20:12)
[2018-06-27] MEDS: *HR* OxyCODONE Immed Rel 5 MG TABLET PO PRN ×4 (03:14→22:50)
--- NOTE | 2018-06-27 07:36 | Orthopedics Progress Note ---
Date of Encounter: 06/27/18 Time of Encounter: 07:35 - Assessment and Plan (1) Wound infection Current Visit: Yes Status: Acute Subjective Interval history: S: The patient resting in bed Pain is well-controlled with the right hip O: Afebrile on the vital signs are stable Right hip dressing is taken down. The wound looks excellent without any drainage. Nearly resolved cellulitis No significant pain with passive motion of the hip She can dorsi flex implant flex ankle and toes and the foot is sensate and well- perfused Enterococcus noted on cultures A: Post I&D of the right hip wound P: I appreciate the advice of the infectious disease specialists She will give 4 weeks of IV vancomycin Given risk of wound healing I discontinued the Lovenox as she is are getting aspirin 325 mg by mouth twice a day. Recommend continuing the aspirin for another 2 weeks postoperatively Objective Vital signs: Vital Signs Temp Pulse Resp BP Pulse Ox 06/27/18 04:46 98.4 F 64 16 125/52 93 06/27/18 00:07 97.8 F 59 15 100/54 95 06/26/18 21:49 17 96 06/26/18 20:26 99 06/26/18 19:31 98.4 F 105 17 131/51 99 06/26/18 12:36 97.7 F 67 16 113/60 97 06/26/18 09:35 98.5 F 58 15 102/58 99 06/26/18 07:53 16 95 Intake and Output 06/26/18 06/26/18 06/27/18 15:59 23:59 07:59 Intake Total 360 / 360 1050 / 1050 Output Total 300 / 300 300 / 300 Balance 60 / 60 750 / 750 Intake: IV Fluids 850 / 850 Vancocin 1,000 MG In 0.9 % 500 / 500 Sodium Chloride 500 ML @ 250 mls/hr IVPB Q12H [facility] Rx#: [id number] Vancocin 500 MG In 0.9 % Sodium 100 / 100 Chloride (Mini-Bag +) 100 ML @ 100 mls/hr IVPB ONCE ONE Rx#: [id number] Oral 360 / 360 200 / 200 Output: Urine 300 / 300 300 / 300 Other: Meal Breakfast Percent of Meal Consumed 100% # Voids 2 1 Weight 71.6 kg Blood Glucose* 126 117 Patient Weight 06/27/18 23:59 Weight 71.6 kg - Labs CBC & BMP: 06/25/18 04:58 06/26/18 03:12 Labs: Abnormal lab results RBC 3.36 M/mcL (3.82-4.97) L 06/25/18 04:58 Hgb 10.1 g/dL (11.5-15.4) L 06/25/18 04:58 Hct 32.4 % (35.3-44.9) L 06/25/18 04:58 MCHC 31.2 g/dL (31.6-35.5) L 06/25/18 04:58 MPV 9.0 fL (9.4-12.4) L 06/25/18 04:58 Chloride 110 mEq/L (98-107) H 06/26/18 03:12 Carbon Dioxide 20 mEq/L (23-29) L 06/26/18 03:12 Glucose 119 mg/dL (70-105) H 06/26/18 03:12 POC Glucose 117 mg/dL (70-99) H 06/26/18 20:01 Vancomycin Trough 18 mcg/mL (5-10) H 06/26/18 11:05 Consult Discharge Plan - Plan Instructions: Cellulitis (DC), Diabetes Mellitus Type 2 in Adults (DC), Chronic Obstructive Pulmonary Disease (DC), Chronic Hypertension (DC) Additional Instructions: DISCHARGE INSTRUCTIONS Dr. Hazel DISCHARGE DIAGNOSIS/PROCEDURE Right wound hip I&D ACTIVITY: Weight bearing as tolerated on the bilateral lower extremities Consult discuss therapy to diagnose and treat, ambulate with a walker. WOUND CARE: Daily dressing changes with dry gauze and paper tape or Medipore tape. MEDICATIONS: Antibiotics: See below per the infectious disease specialist. Aspirin: Aspirin 325 mg by mouth twice a day for DVT prophylaxis 2 weeks FOLLOW-UP Follow-up with Dr. Hazel or Dawn Nielsen PA-C at the office on 07/05/18 for a post operative evaluation. Call the office at [phone] to schedule or confirm your appointment. WHEN TO CALL THE DOCTOR OR WHEN TO SEEK CARE BEFORE YOUR APPOINTMENT 1. Excess swelling or increased numbness not made better by elevating the hand and moving the fingers. 2. Uncontrolled pain. 3. A color change in your hand or fingers. 4. Worsening redness or drainage. 5. Fevers over 100.5 degrees F or 38.1 degrees C. 6. Any symptoms that bring concern to you. Note from ID specialist: IV Vanc for 4 weeks, CBC/BUN/Cr weekly and follow with ID Referrals: Leigha Monk CNP [Advanced Practice Nurse] - 07/18/18 2:05 pm NONE,PCP [Primary Care Provider] - Giuliano Hazel MD [Partnered Physician] - Prescriptions: Vancomycin/0.9 % Sod Chloride [Vancomycin 1 G/100Ml-0.9% NaCl] 1 gm IV Q12H 24 Days #48 plast..bag
[2018-06-27] MEDS: Budesonide/Formoterol 160/4.5 1 PUFF INH IH SCH ×2 (07:56→19:53)
[2018-06-27] MEDS: Insulin LISPRO 300 UNITS/3 ML VIAL SQ SCH ×4 (08:13→20:31)
[2018-06-27] MEDS: BuPROPion XL (24 HR) 150 MG TABLET PO SCH (09:44)
[2018-06-27] MEDS: Diltiazem CD (24hr) 120 MG CAPSULE PO SCH (09:45)
[2018-06-27] MEDS: hydrOXYzine pamoate 25 MG CAPSULE PO SCH ×2 (09:45→20:36)
[2018-06-27] MEDS: Aspirin Enteric Coated 325 MG Tablet PO SCH ×2 (09:45→20:36)
[2018-06-27] MEDS: Famotidine 20 MG TABLET PO SCH ×2 (09:45→20:36)
[2018-06-27] MEDS: amLODIPine 5 MG TABLET PO SCH (09:46)
[2018-06-27] MEDS: *HR* Metformin 500 MG TABLET PO SCH ×2 (09:46→18:18)
[2018-06-27] MEDS: *HR* Pioglitazone 15 MG TABLET PO SCH ×2 (09:46→18:18)
[2018-06-27] MEDS: EXENATIDE 10 MCG SQ SCH ×2 (10:05→20:37)
[2018-06-27] MEDS: (Umeclidinium Bromide [Incruse Ellipta] 1 PUFF) IH SCH (10:05)
--- NOTE | 2018-06-27 14:16 | Infectious Disease Progress No ---
Date of Encounter: 06/27/18 Time of Encounter: 14:16 - Assessment and Plan (1) Surgical wound infection Current Visit: Yes Status: Acute Location: Right hip. Causative organism: Enterococcus faecalis. Likely secondary to recent surgical procedure. Status post right hip IM nailing 05/29/[address] Mcgowan. Status post I&D on 06/23/18. Intraoperative cultures as stated above. Operative note indicates that there was serosanguineous drainage that did pen etrate the fascia but did not appear to communicate with the hardware. The patient's penicillin allergy limits our ability to use ampicillin. Currently on IV vancomycin. Recommendations: Wound care and activity restrictions per the orthopedics team. Continue vancomycin IV. Pharmacy to dose. Goal trough approximately 15. Duration of treatment depends on the clinical picture, but likely a total of 4 weeks. Monitor renal and for drug toxicity and dose-adjust antibiotics. director professional services to assist with discharge planning. Per nursing, home health has declined the patient due to her poor living conditions at home. Consult vascular access team to exchange the EPIV for a PICC line. Will need weekly CBC, BUN/creatinine, ESR, CRP, and Vanc trough. We will need weekly PICC care per protocol. Follow-up with ID 07/18/18 at 1405. (2) Allergy to multiple antibiotics Current Visit: Yes Status: Acute - Subjective Interval history: Patient seen and examined. No acute events noted overnight. Patient complains of pain in the right hip. She denies any fevers or chills or rigors. She de nies any chest pain, shortness of breath, or cough. She denies any nausea, vomiting, diarrhea, or constipation. S Patient is not very eager to go to the prison. She also tells me she is having a lot of pain. Ex In the last 24 hours: Vital signs noted afebrile Labs reviewed (no labs from today) Infect Dis PN-Objective Data - Labs CBC & Chem 7: 06/25/18 04:58 06/26/18 03:12 Labs: Laboratory Results - last 24 hr 06/26/18 06/26/18 06/26/18 07:20 16:33 20:01 POC Glucose 107 H 169 H 117 H Cultures: Cultures 06/23/18 09:29 Anaerobic Culture - Preliminary Right Hip At this time, no anaerobic growth is present. The culture will be finalized after 5 days of incubation. 06/23/18 09:29 Wound Culture - Final Right Hip Enterococcus faecalis 06/22/18 16:43 Wound Culture - Final Incision No pathogens isolated. 06/22/18 16:21 Blood Culture - Preliminary Peripheral Venipuncture Culture is incubating and being continuously monitored for growth. Final report to follow. 06/22/18 16:21 Blood Culture - Preliminary Peripheral Venipuncture Culture is incubating and being continuously monitored for growth. Final report to follow. Exam - Constitutional Vitals: Temp Pulse Resp BP Pulse Ox 98.1 F 73 16 134/76 96 06/27/18 10:21 06/27/18 10:21 06/27/18 10:21 06/27/18 10:21 06/27/18 10:21 General appearance: no acute distress, no febrile - Head Head exam: Present: atraumatic, normocephalic - Respiratory Respiratory exam: Present: CTAB. Absent: wheezes - Cardiovascular Cardiovascular exam: Present: RRR, +S1, +S2 - GI/Abdominal GI/Abdominal exam: Present: normal bowel sounds, soft. Absent: tenderness - Extremities Exam Extremities exam: Absent: pedal edema Additional comments: hip surgical wound healing okay with no signs of infection - Neurological Exam Neurological exam: Present: alert. Absent: oriented X3 - Psychiatric Psychiatric exam: Present: normal affect, normal mood Consult Discharge Plan - Plan Instructions: Cellulitis (DC), Diabetes Mellitus Type 2 in Adults (DC), Chronic Obstructive Pulmonary Disease (DC), Chronic Hypertension (DC) Additional Instructions: DISCHARGE INSTRUCTIONS Dr. Hazel DISCHARGE DIAGNOSIS/PROCEDURE Right wound hip I&D ACTIVITY: Weight bearing as tolerated on the bilateral lower extremities Consult discuss therapy to diagnose and treat, ambulate with a walker. WOUND CARE: Daily dressing changes with dry gauze and paper tape or Medipore tape. MEDICATIONS: Antibiotics: See below per the infectious disease specialist. Aspirin: Aspirin 325 mg by mouth twice a day for DVT prophylaxis 2 weeks FOLLOW-UP Follow-up with Dr. Hazel or Dawn Nielsen PA-C at the office on 07/05/18 for a post operative evaluation. Call the office at [phone] to schedule or confirm your appointment. WHEN TO CALL THE DOCTOR OR WHEN TO SEEK CARE BEFORE YOUR APPOINTMENT 1. Excess swelling or increased numbness not made better by elevating the hand and moving the fingers. 2. Uncontrolled pain. 3. A color change in your hand or fingers. 4. Worsening redness or drainage. 5. Fevers over 100.5 degrees F or 38.1 degrees C. 6. Any symptoms that bring concern to you. Note from ID specialist: IV Vanc for 4 weeks, CBC/BUN/Cr weekly and follow with ID Referrals: Leigha Monk CNP [Advanced Practice Nurse] - 07/18/18 2:05 pm NONE,PCP [Primary Care Provider] - Giuliano Hazel MD [Partnered Physician] - Prescriptions: Vancomycin/0.9 % Sod Chloride [Vancomycin 1 G/100Ml-0.9% NaCl] 1 gm IV Q12H 24 Days #48 plast..bag
--- NOTE | 2018-06-27 14:32 | Internal Med Progress Note ---
Hospitalist Progress Note - Encounter Date of Encounter: 06/27/18 Time of Encounter: 10:40 - Subjective Interval History: Appears that home health has declined the patient due to poor living conditions at home and she now opted for placement at ECF. No fever/chills, no focal complaints. - Exam Vitals: Temp Pulse Resp BP Pulse Ox 98.1 F 73 16 134/76 96 06/27/18 10:21 06/27/18 10:21 06/27/18 10:21 06/27/18 10:21 06/27/18 10:21 Exam: GEN: NAD CVS: RRR. S1, S2, No m/r/g RESP: CTAB ABD: Soft, NT, ND, +BS. Extremities: Dressing on right hip clean and dry - Assessment and Plan (1) Surgical wound infection Current Visit: Yes Status: Acute Assessment and Plan: s/p I&D of the right hip wound culture positive for E. faecalis ID input appreciated, for 4 weeks of IV VAnc due to PCN allergy follow ortho regarding wound care pending ECF placement, stable for discharge (2) Hypertension Current Visit: Yes Status: Chronic Assessment and Plan: continue home meds (3) Diabetes mellitus Current Visit: Yes Status: Chronic Assessment and Plan: continue low-dose sliding scale in addition to her home meds FS ACHS ADA diet (4) Multifocal atrial tachycardia Current Visit: Yes Status: Chronic Assessment and Plan: continue home meds (5) Hyperlipidemia Current Visit: Yes Status: Chronic Assessment and Plan: continue home meds (6) PVD (peripheral vascular disease) Current Visit: Yes Status: Chronic Assessment and Plan: continue home meds (7) Status post hip surgery Current Visit: Yes Status: Chronic Assessment and Plan: wound care per ortho Continue DVT prophylaxis with ASA per ortho due to the concern of proper wound healing pain control (8) COPD (chronic obstructive pulmonary disease) Current Visit: Yes Status: Chronic Assessment and Plan: DuoNeb prn continue home meds (9) DVT prophylaxis Current Visit: Yes Status: Acute Assessment and Plan: ASA as above - Time Spent with Patient Total time spent is greater than 50% in coordination of care (as documented) at patient's floor/unit and/or counseling patient: Plan of Care Discussed with: patient Internal Medicine: Result - Labs CBC & Chem 7: 06/25/18 04:58 06/26/18 03:12 Consult Discharge Plan - Plan Instructions: Cellulitis (DC), Diabetes Mellitus Type 2 in Adults (DC), Chronic Obstructive Pulmonary Disease (DC), Chronic Hypertension (DC) Additional Instructions: DISCHARGE INSTRUCTIONS Dr. Hazel DISCHARGE DIAGNOSIS/PROCEDURE Right wound hip I&D ACTIVITY: Weight bearing as tolerated on the bilateral lower extremities Consult discuss therapy to diagnose and treat, ambulate with a walker. WOUND CARE: Daily dressing changes with dry gauze and paper tape or Medipore tape. MEDICATIONS: Antibiotics: See below per the infectious disease specialist. Aspirin: Aspirin 325 mg by mouth twice a day for DVT prophylaxis 2 weeks FOLLOW-UP Follow-up with Dr. Hazel or Dawn Nielsen PA-C at the office on 07/05/18 for a post operative evaluation. Call the office at [phone] to schedule or confirm your appointment. WHEN TO CALL THE DOCTOR OR WHEN TO SEEK CARE BEFORE YOUR APPOINTMENT 1. Excess swelling or increased numbness not made better by elevating the hand and moving the fingers. 2. Uncontrolled pain. 3. A color change in your hand or fingers. 4. Worsening redness or drainage. 5. Fevers over 100.5 degrees F or 38.1 degrees C. 6. Any symptoms that bring concern to you. 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
[2018-06-27] MEDS: Melatonin 3 MG TABLET PO PRN (21:33)
[2018-06-28 03:21] LABS: Basophils % 0.6 %; Eosinophils # 0.2 K/mcL (0.0-0.6); Eosinophils % 3.5 %; Hematocrit 28.2 % (35.3-44.9); Immature Granulocytes % 0.3 % (0-4); Lymphocytes # 2.9 K/mcL (0.6-4.6); Lymphocytes % 43.8 %; Mean Corpuscular HGB Conc 31.9 g/dL (31.6-35.5); Mean Corpuscular Hemoglobin 30.1 pg (28.0-33.3); Mean Corpuscular Volume 94.3 fL (83.0-100.0); Mean Platelet Volume 9.2 fL (9.4-12.4); Monocytes # 0.5 K/mcL (0.0-1.3); Monocytes % 7.8 %; Neutrophils # 2.9 K/mcL (1.6-8.9); Platelet Count 255 K/mcL (140-400); Red Blood Count 2.99 M/mcL (3.82-4.97); Red Cell Distribution Width 14.4 % (11.5-14.5)
[2018-06-28 03:41] LABS: Alanine Aminotransferase 14 Units/L (7-52); Albumin 3.3 g/dL (3.5-5.7); Albumin/Globulin Ratio 1.5 (1.1-2.2); Alkaline Phosphatase 90 Units/L (34-104); Aspartate Amino Transferase 14 Units/L (13-39); BUN/Creatinine Ratio 17 (6-26); Bilirubin,Total 0.2 mg/dL (0.3-1.0); Blood Urea Nitrogen 12 mg/dL (8-23); Calcium 9.1 mg/dL (8.6-10.3); Carbon Dioxide 24 mEq/L (23-29); Chloride 110 mEq/L (98-107); Globulin 2.2 g/dL (2.4-3.5); Glucose 121 mg/dL (70-105); Osmolality,Calculated 291 (280-300); Potassium 3.9 mEq/L (3.5-5.1); Sodium 140 mEq/L (136-145); Total Protein 5.5 g/dL (6.4-8.9); eGFR For Non-African Americans > 60 (> 60)
[2018-06-28] MEDS: Budesonide/Formoterol 160/4.5 1 PUFF INH IH SCH ×2 (07:52→22:01)
[2018-06-28] MEDS: Insulin LISPRO 300 UNITS/3 ML VIAL SQ SCH ×4 (07:56→22:05)
[2018-06-28] MEDS: Diltiazem CD (24hr) 120 MG CAPSULE PO SCH (08:24)
[2018-06-28] MEDS: *HR* OxyCODONE Immed Rel 5 MG TABLET PO PRN ×2 (08:24→16:58)
[2018-06-28] MEDS: BuPROPion XL (24 HR) 150 MG TABLET PO SCH (08:24)
[2018-06-28] MEDS: *HR* Metformin 500 MG TABLET PO SCH ×2 (08:25→16:58)
[2018-06-28] MEDS: Famotidine 20 MG TABLET PO SCH ×2 (08:25→22:03)
[2018-06-28] MEDS: Aspirin Enteric Coated 325 MG Tablet PO SCH ×2 (08:25→22:03)
[2018-06-28] MEDS: *HR* Pioglitazone 15 MG TABLET PO SCH ×2 (08:25→16:58)
[2018-06-28] MEDS: amLODIPine 5 MG TABLET PO SCH (08:25)
[2018-06-28] MEDS: hydrOXYzine pamoate 25 MG CAPSULE PO SCH ×2 (08:25→22:02)
[2018-06-28] MEDS: (Umeclidinium Bromide [Incruse Ellipta] 1 PUFF) IH SCH (08:26)
[2018-06-28] MEDS: EXENATIDE 10 MCG SQ SCH ×2 (08:26→22:05)
--- NOTE | 2018-06-28 14:06 | Internal Med Progress Note ---
Hospitalist Progress Note - Encounter Date of Encounter: 06/28/18 Time of Encounter: 11:00 - Subjective Interval History: No acute events overnight, no fever/chills, N/V. Awaiting for placement at ECF. - Exam Vitals: Temp Pulse Resp BP Pulse Ox 98.0 F 73 16 134/63 95 06/28/18 10:05 06/28/18 10:05 06/28/18 10:05 06/28/18 10:05 06/28/18 10:05 Exam: GEN: NAD CVS: RRR. S1, S2, No m/r/g RESP: CTAB ABD: Soft, NT, ND, +BS. Extremities: Dressing on right hip clean and dry - Assessment and Plan (1) Surgical wound infection Current Visit: Yes Status: Acute Assessment and Plan: s/p I&D of the right hip wound culture positive for E. faecalis ID input appreciated, for 4 weeks of IV Vanc due to PCN allergy follow ortho regarding wound care pending ECF placement, stable for discharge (2) Status post hip surgery Current Visit: Yes Status: Chronic Assessment and Plan: wound care per ortho Continue DVT prophylaxis with ASA per ortho due to the concern of proper wound healing pain control (3) Hypertension Current Visit: Yes Status: Chronic Assessment and Plan: continue home meds (4) Diabetes mellitus Current Visit: Yes Status: Chronic Assessment and Plan: continue low-dose sliding scale in addition to her home meds FS ACHS ADA diet (5) Multifocal atrial tachycardia Current Visit: Yes Status: Chronic Assessment and Plan: continue home meds (6) Hyperlipidemia Current Visit: Yes Status: Chronic Assessment and Plan: continue home meds (7) PVD (peripheral vascular disease) Current Visit: Yes Status: Chronic Assessment and Plan: continue home meds (8) COPD (chronic obstructive pulmonary disease) Current Visit: Yes Status: Chronic Assessment and Plan: DuoNeb prn continue home meds (9) DVT prophylaxis Current Visit: Yes Status: Acute Assessment and Plan: ASA as above - Time Spent with Patient Total time spent is greater than 50% in coordination of care (as documented) at patient's floor/unit and/or counseling patient: Plan of Care Discussed with: patient (discussed with SW/CM) Internal Medicine: Result - Labs CBC & Chem 7: 06/28/18 03:09 06/28/18 03:09 Labs: Short CBC 12/20/18 Range/Units 03:09 WBC 6.6 (4.3-11.1) K/mcL Hgb 9.0 L (11.5-15.4) g/dL Hct 28.2 L (35.3-44.9) % Plt Count 255 (140-400) K/mcL Neutrophils # 2.9 (1.6-8.9) K/mcL BMP 06/28/18 03:09 Sodium 140 Potassium 3.9 Chloride 110 H Carbon Dioxide 24 BUN 12 Creatinine 0.69 Glucose 121 H Calcium 9.1 Liver Function 06/28/18 Range/Units 03:09 Total Bilirubin 0.2 L (0.3-1.0) mg/dL AST 14 (13-39) Units/L ALT 14 (7-52) Units/L Alkaline Phosphatase 90 (34-104) Units/L Albumin 3.3 L (3.5-5.7) g/dL Consult Discharge Plan - Plan Instructions: Cellulitis (DC), Diabetes Mellitus Type 2 in Adults (DC), Chronic Obstructive Pulmonary Disease (DC), Chronic Hypertension (DC) Additional Instructions: DISCHARGE INSTRUCTIONS Dr. Hazel DISCHARGE DIAGNOSIS/PROCEDURE Right wound hip I&D ACTIVITY: Weight bearing as tolerated on the bilateral lower extremities Consult discuss therapy to diagnose and treat, ambulate with a walker. WOUND CARE: Daily dressing changes with dry gauze and paper tape or Medipore tape. MEDICATIONS: Antibiotics: See below per the infectious disease specialist. Aspirin: Aspirin 325 mg by mouth twice a day for DVT prophylaxis 2 weeks FOLLOW-UP Follow-up with Dr. Hazel or Dawn Nielsen PA-C at the office on 07/05/18 for a post operative evaluation. Call the office at [phone] to schedule or confirm your appointment. WHEN TO CALL THE DOCTOR OR WHEN TO SEEK CARE BEFORE YOUR APPOINTMENT 1. Excess swelling or increased numbness not made better by elevating the hand and moving the fingers. 2. Uncontrolled pain. 3. A color change in your hand or fingers. 4. Worsening redness or drainage. 5. Fevers over 100.5 degrees F or 38.1 degrees C. 6. Any symptoms that bring concern to you. Note from ID specialist: IV Vanc for 4 weeks, CBC/BUN/Cr weekly and follow with ID Referrals: Leigha Monk CNP [Advanced Practice Nurse] - 07/18/18 2:05 pm NONE,PCP [Primary Care Provider] - Giuliano Hazel MD [Partnered Physician] - Prescriptions: Vancomycin/0.9 % Sod Chloride [Vancomycin 1 G/100Ml-0.9% NaCl] 1 gm IV Q12H 24 Days #48 plast..bag (3) Hypertension Qualifiers: Hypertension type: essential hypertension Qualified Code(s): I10 - Essential (primary) hypertension (4) Diabetes mellitus Qualifiers: Diabetes mellitus type: type 2 Diabetes mellitus nursing home insulin use: without terminal computer operator use Diabetes mellitus complication status: without co mplication Qualified Code(s): E11.9 - Type 2 diabetes mellitus without com plications (6) Hyperlipidemia Qualifiers: Hyperlipidemia type: unspecified Qualified Code(s): E78.5 - Hyperlipidemia, unspecified (8) COPD (chronic obstructive pulmonary disease) Qualifiers: COPD type: unspecified COPD Qualified Code(s): J44.9 - Chronic obstructive pulmonary disease, unspecified
--- NOTE | 2018-06-28 16:19 | Infectious Disease Progress No ---
Date of Encounter: 06/28/18 Time of Encounter: 16:17 - Assessment and Plan (1) Surgical wound infection Current Visit: Yes Status: Acute Location: Right hip. Causative organism: Enterococcus faecalis. Likely secondary to recent surgical procedure. Status post right hip IM nailing 05/29/[address] Mcgowan. Status post I&D on 06/23/18. Intraoperative cultures as stated above. Operative note indicates that there was serosanguineous drainage that did pen etrate the fascia but did not appear to communicate with the hardware. The patient's penicillin allergy limits our ability to use ampicillin. Currently on IV vancomycin. Recommendations: Wound care and activity restrictions per the orthopedics team. Continue vancomycin IV. Pharmacy to dose. Goal trough approximately 15. Duration of treatment depends on the clinical picture, but likely a total of 4 weeks. Monitor renal and for drug toxicity and dose-adjust antibiotics. caseworker protective services to assist with discharge planning. Per nursing, home health has declined the patient due to her poor living conditions at home. Consult vascular access team to exchange the EPIV for a PICC line. Will need weekly CBC, BUN/creatinine, ESR, CRP, and Vanc trough. We will need weekly PICC care per protocol. Follow-up with ID 07/18/18 at 1405. (2) Allergy to multiple antibiotics Current Visit: Yes Status: Acute - Subjective Interval history: Patient seen and examined. Appears comfortable. No acute distress. No chest pain or shortness of breath no diarrhea. Good appetite. Her pain significantly improved. In the last 24 hours: Vital signs noted afebrile Labs reviewed . WBC 6.6, creatinine 0.69 Vancomycin trough 11 Infect Dis PN-Objective Data - Labs CBC & Chem 7: 06/28/18 03:09 06/28/18 03:09 Labs: Laboratory Results - last 24 hr 06/27/18 06/27/18 06/28/18 16:52 19:51 03:09 WBC 6.6 RBC 2.99 L Hgb 9.0 L Hct 28.2 L MCV 94.3 MCH 30.1 MCHC 31.9 RDW 14.4 Plt Count 255 MPV 9.2 L Immature Gran % 0.3 Seg Neutrophils % 44.0 Lymphocytes % 43.8 Monocytes % 7.8 Eosinophils % 3.5 Basophils % 0.6 Neutrophils # 2.9 Lymphocytes # 2.9 Monocytes # 0.5 Eosinophils # 0.2 Basophils # 0.0 Sodium Potassium Chloride Carbon Dioxide BUN Creatinine Est GFR ( Amer) Est GFR (Non-Af Amer) BUN/Creatinine Ratio Glucose POC Glucose 118 H 159 H Calculated Osmolality Calcium Total Bilirubin AST ALT Alkaline Phosphatase Serum Total Protein Albumin Globulin Albumin/Globulin Ratio Vancomycin Trough 06/28/18 06/28/18 03:09 14:55 WBC RBC Hgb Hct MCV MCH MCHC RDW Plt Count MPV Immature Gran % Seg Neutrophils % Lymphocytes % Monocytes % Eosinophils % Basophils % Neutrophils # Lymphocytes # Monocytes # Eosinophils # Basophils # Sodium 140 Potassium 3.9 Chloride 110 H Carbon Dioxide 24 BUN 12 Creatinine 0.69 Est GFR ( Amer) > 60 Est GFR (Non-Af Amer) > 60 BUN/Creatinine Ratio 17 Glucose 121 H POC Glucose Calculated Osmolality 291 Calcium 9.1 Total Bilirubin 0.2 L AST 14 ALT 14 Alkaline Phosphatase 90 Serum Total Protein 5.5 L Albumin 3.3 L Globulin 2.2 L Albumin/Globulin Ratio 1.5 Vancomycin Trough 11 H Cultures: Cultures 06/23/18 09:29 Anaerobic Culture - Final Right Hip No anaerobes were recovered. 06/22/18 16:21 Blood Culture - Final Peripheral Venipuncture No growth. Final report. 06/22/18 16:21 Blood Culture - Final Peripheral Venipuncture No growth. Final report. 06/23/18 09:29 Wound Culture - Final Right Hip Enterococcus faecalis 06/22/18 16:43 Wound Culture - Final Incision No pathogens isolated. Exam - Constitutional Vitals: Temp Pulse Resp BP Pulse Ox 98.0 F 73 16 134/63 95 06/28/18 10:05 06/28/18 10:05 06/28/18 10:05 06/28/18 10:05 06/28/18 10:05 General appearance: no acute distress, no febrile - Respiratory Respiratory exam: Present: CTAB. Absent: wheezes - Cardiovascular Cardiovascular exam: Present: RRR, +S1, +S2 - GI/Abdominal GI/Abdominal exam: Present: normal bowel sounds, soft. Absent: tenderness - Extremities Exam Extremities exam: Present: normal inspection. Absent: pedal edema Consult Discharge Plan - Plan Instructions: Cellulitis (DC), Diabetes Mellitus Type 2 in Adults (DC), Chronic Obstructive Pulmonary Disease (DC), Chronic Hypertension (DC) Additional Instructions: DISCHARGE INSTRUCTIONS Dr. Hazel DISCHARGE DIAGNOSIS/PROCEDURE Right wound hip I&D ACTIVITY: Weight bearing as tolerated on the bilateral lower extremities Consult discuss therapy to diagnose and treat, ambulate with a walker. WOUND CARE: Daily dressing changes with dry gauze and paper tape or Medipore tape. MEDICATIONS: Antibiotics: See below per the infectious disease specialist. Aspirin: Aspirin 325 mg by mouth twice a day for DVT prophylaxis 2 weeks FOLLOW-UP Follow-up with Dr. Hazel or Dawn Nielsen PA-C at the office on 07/05/18 for a post operative evaluation. Call the office at [phone] to schedule or confirm your appointment. WHEN TO CALL THE DOCTOR OR WHEN TO SEEK CARE BEFORE YOUR APPOINTMENT 1. Excess swelling or increased numbness not made better by elevating the hand and moving the fingers. 2. Uncontrolled pain. 3. A color change in your hand or fingers. 4. Worsening redness or drainage. 5. Fevers over 100.5 degrees F or 38.1 degrees C. 6. Any symptoms that bring concern to you. Note from ID specialist: IV Vanc for 4 weeks, CBC/BUN/Cr weekly and follow with ID Referrals: Leigha Monk CNP [Advanced Practice Nurse] - 07/18/18 2:05 pm NONE,PCP [Primary Care Provider] - Giuliano Hazel MD [Partnered Physician] - Prescriptions: Vancomycin/0.9 % Sod Chloride [Vancomycin 1 G/100Ml-0.9% NaCl] 1 gm IV Q12H 24 Days #48 plast..bag
--- NOTE | 2018-06-28 17:57 | Orthopedics Progress Note ---
Date of Encounter: 06/28/18 Time of Encounter: 17:56 - Assessment and Plan (1) Wound infection Current Visit: Yes Status: Acute Subjective Interval history: S: The patient is sitting up in bed Pain is well-controlled with the right hip O: Afebrile on the vital signs are stable Right hip dressing is taken down. The wound looks excellent without any drainage. No significant pain with passive motion of the hip She can dorsi flex implant flex ankle and toes and the foot is sensate and well- perfused Enterococcus noted on cultures A: Post I&D of the right hip wound P: I appreciate the advice of the infectious disease specialists She will get 4 weeks of IV vancomycin Given risk of wound healing I discontinued the Lovenox as she is are getting aspirin 325 mg by mouth twice a day. Recommend continuing the aspirin for another 2 weeks postoperatively Orthopedically stable for discharge. Objective Vital signs: Vital Signs Temp Pulse Resp BP Pulse Ox 06/28/18 14:28 97.8 F 81 16 126/68 97 06/28/18 10:05 98.0 F 73 16 134/63 95 06/28/18 07:52 16 97 06/28/18 07:00 98.4 F 68 16 126/58 97 06/28/18 03:48 98.7 F 66 17 120/60 95 06/27/18 23:10 98.6 F 65 16 121/51 94 06/27/18 19:56 16 99 06/27/18 19:09 98.5 F 72 17 118/60 95 Intake and Output 06/28/18 06/28/18 06/28/18 07:59 15:59 23:59 Intake Total 300 / 300 490 / 490 Output Total 300 / 300 Balance 0 / 0 490 / 490 Intake: IV Fluids 250 / 250 Vancocin 1,500 MG In 0.9 % 250 / 250 Sodium Chloride 250 ML @ 166.67 mls/hr IVPB Q24H JOCELYNE Rx#: [id number] Oral 300 / 300 240 / 240 Output: Urine 300 / 300 Other: Meal Lunch Percent of Meal Consumed 85% # Voids 1 Weight 71.7 kg Blood Glucose* 105 151 108 Patient Weight 06/28/18 23:59 Weight 71.7 kg - Labs CBC & BMP: 06/28/18 03:09 06/28/18 03:09 Labs: Abnormal lab results RBC 2.99 M/mcL (3.82-4.97) L 06/28/18 03:09 Hgb 9.0 g/dL (11.5-15.4) L 06/28/18 03:09 Hct 28.2 % (35.3-44.9) L 06/28/18 03:09 MPV 9.2 fL (9.4-12.4) L 06/28/18 03:09 Chloride 110 mEq/L (98-107) H 06/28/18 03:09 Glucose 121 mg/dL (70-105) H 06/28/18 03:09 POC Glucose 159 mg/dL (70-99) H 06/27/18 19:51 Total Bilirubin 0.2 mg/dL (0.3-1.0) L 06/28/18 03:09 Serum Total Protein 5.5 g/dL (6.4-8.9) L 06/28/18 03:09 Albumin 3.3 g/dL (3.5-5.7) L 06/28/18 03:09 Globulin 2.2 g/dL (2.4-3.5) L 06/28/18 03:09 Vancomycin Trough 11 mcg/mL (5-10) H 06/28/18 14:55 Consult Discharge Plan - Plan Instructions: Cellulitis (DC), Diabetes Mellitus Type 2 in Adults (DC), Chronic Obstructive Pulmonary Disease (DC), Chronic Hypertension (DC) Additional Instructions: DISCHARGE INSTRUCTIONS Dr. Hazel DISCHARGE DIAGNOSIS/PROCEDURE Right wound hip I&D ACTIVITY: Weight bearing as tolerated on the bilateral lower extremities Consult discuss therapy to diagnose and treat, ambulate with a walker. WOUND CARE: Daily dressing changes with dry gauze and paper tape or Medipore tape. MEDICATIONS: Antibiotics: See below per the infectious disease specialist. Aspirin: Aspirin 325 mg by mouth twice a day for DVT prophylaxis 2 weeks FOLLOW-UP Follow-up with Dr. Hazel or Dawn Nielsen PA-C at the office on 07/05/18 for a post operative evaluation. Call the office at [phone] to schedule or confirm your appointment. WHEN TO CALL THE DOCTOR OR WHEN TO SEEK CARE BEFORE YOUR APPOINTMENT 1. Excess swelling or increased numbness not made better by elevating the hand and moving the fingers. 2. Uncontrolled pain. 3. A color change in your hand or fingers. 4. Worsening redness or drainage. 5. Fevers over 100.5 degrees F or 38.1 degrees C. 6. Any symptoms that bring concern to you. Note from ID specialist: IV Vanc for 4 weeks, CBC/BUN/Cr weekly and follow with ID Referrals: Leigha Monk CNP [Advanced Practice Nurse] - 07/18/18 2:05 pm NONE,PCP [Primary Care Provider] - Giuliano Hazel MD [Partnered Physician] - Prescriptions: Vancomycin/0.9 % Sod Chloride [Vancomycin 1 G/100Ml-0.9% NaCl] 1 gm IV Q12H 24 Days #48 plast..bag
[2018-06-28] MEDS: Melatonin 3 MG TABLET PO PRN (22:02)
[2018-06-29] MEDS: *HR* OxyCODONE Immed Rel 5 MG TABLET PO PRN ×2 (00:25→07:03)
[2018-06-29] MEDS: Acetaminophen 325 MG TABLET PO PRN (00:25)
[2018-06-29] MEDS: BuPROPion XL (24 HR) 150 MG TABLET PO SCH (07:39)
[2018-06-29] MEDS: hydrOXYzine pamoate 25 MG CAPSULE PO SCH (07:39)
[2018-06-29] MEDS: *HR* Metformin 500 MG TABLET PO SCH ×2 (07:39→15:52)
[2018-06-29] MEDS: *HR* Pioglitazone 15 MG TABLET PO SCH ×2 (07:39→15:53)
[2018-06-29] MEDS: Diltiazem CD (24hr) 120 MG CAPSULE PO SCH (07:39)
[2018-06-29] MEDS: amLODIPine 5 MG TABLET PO SCH (07:40)
[2018-06-29] MEDS: Aspirin Enteric Coated 325 MG Tablet PO SCH (07:40)
[2018-06-29] MEDS: Famotidine 20 MG TABLET PO SCH (07:40)
[2018-06-29] MEDS: (Umeclidinium Bromide [Incruse Ellipta] 1 PUFF) IH SCH (07:43)
[2018-06-29] MEDS: EXENATIDE 10 MCG SQ SCH (07:43)
[2018-06-29] MEDS: Insulin LISPRO 300 UNITS/3 ML VIAL SQ SCH ×2 (08:39→12:19)
[2018-06-29] MEDS: Budesonide/Formoterol 160/4.5 1 PUFF INH IH SCH (10:00)
[2018-06-29 12:10] VITALS: BP 94/49
--- NOTE | 2018-06-29 14:18 | Internal Med Progress Note ---
Hospitalist Progress Note - Encounter Date of Encounter: 06/29/18 Time of Encounter: 11:00 - Subjective Interval History: No acute events overnight, no fever/chills, N/V. Awaiting for placement at ECF. - Exam Vitals: Temp Pulse Resp BP Pulse Ox 98.6 F 69 16 94/49 94 06/29/18 12:09 06/29/18 12:09 06/29/18 12:09 06/29/18 12:09 06/29/18 12:09 Exam: GEN: NAD CVS: RRR. S1, S2, No m/r/g RESP: CTAB ABD: Soft, NT, ND, +BS. Extremities: Dressing on right hip clean and dry - Assessment and Plan (1) Surgical wound infection Current Visit: Yes Status: Acute Assessment and Plan: s/p I&D of the right hip wound culture positive for E. faecalis ID input appreciated, for 4 weeks of IV Vanc due to PCN allergy follow ortho regarding wound care pending ECF placement, stable for discharge (2) Status post hip surgery Current Visit: Yes Status: Chronic Assessment and Plan: wound care per ortho Continue DVT prophylaxis with ASA per ortho due to the concern of proper wound healing pain control (3) Hypertension Current Visit: Yes Status: Chronic Assessment and Plan: continue home meds (4) Diabetes mellitus Current Visit: Yes Status: Chronic Assessment and Plan: continue low-dose sliding scale in addition to her home meds FS ACHS ADA diet (5) Multifocal atrial tachycardia Current Visit: Yes Status: Chronic Assessment and Plan: continue home meds (6) Hyperlipidemia Current Visit: Yes Status: Chronic Assessment and Plan: continue home meds (7) PVD (peripheral vascular disease) Current Visit: Yes Status: Chronic Assessment and Plan: continue home meds (8) COPD (chronic obstructive pulmonary disease) Current Visit: Yes Status: Chronic Assessment and Plan: DuoNeb prn continue home meds (9) DVT prophylaxis Current Visit: Yes Status: Acute Assessment and Plan: ASA as above - Time Spent with Patient Total time spent is greater than 50% in coordination of care (as documented) at patient's floor/unit and/or counseling patient: Plan of Care Discussed with: patient Internal Medicine: Result - Labs CBC & Chem 7: 06/28/18 03:09 06/28/18 03:09 Consult Discharge Plan - Plan Instructions: Cellulitis (DC), Diabetes Mellitus Type 2 in Adults (DC), Chronic Obstructive Pulmonary Disease (DC), Chronic Hypertension (DC) Additional Instructions: DISCHARGE INSTRUCTIONS Dr. Hazel DISCHARGE DIAGNOSIS/PROCEDURE Right wound hip I&D ACTIVITY: Weight bearing as tolerated on the bilateral lower extremities Consult discuss therapy to diagnose and treat, ambulate with a walker. WOUND CARE: Daily dressing changes with dry gauze and paper tape or Medipore tape. MEDICATIONS: Antibiotics: See below per the infectious disease specialist. Aspirin: Aspirin 325 mg by mouth twice a day for DVT prophylaxis 2 weeks FOLLOW-UP Follow-up with Dr. Hazel or Dawn Nielsen PA-C at the office on 07/05/18 for a post operative evaluation. Call the office at [phone] to schedule or confirm your appointment. WHEN TO CALL THE DOCTOR OR WHEN TO SEEK CARE BEFORE YOUR APPOINTMENT 1. Excess swelling or increased numbness not made better by elevating the hand and moving the fingers. 2. Uncontrolled pain. 3. A color change in your hand or fingers. 4. Worsening redness or drainage. 5. Fevers over 100.5 degrees F or 38.1 degrees C. 6. Any symptoms that bring concern to you. 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
--- NOTE | 2018-06-29 21:40 | Infectious Disease Progress No ---
Date of Encounter: 06/29/18 Time of Encounter: 12:00 - Assessment and Plan (1) Surgical wound infection Status: Acute Location: Right hip. Causative organism: Enterococcus faecalis. Likely secondary to recent surgical procedure. Status post right hip IM nailing 05/29/[address] Mcgowan. Status post I&D on 06/23/18. Intraoperative cultures as stated above. Operative note indicates that there was serosanguineous drainage that did penetrate the fascia but did not appear to communicate with the hardware. The patient's penicillin allergy limits our ability to use ampicillin. Currently on IV vancomycin. Recommendations: Wound care and activity restrictions per the orthopedics team. Continue vancomycin IV. Pharmacy to dose. Goal trough approximately 15. Duration of treatment depends on the clinical picture, but likely a total of 4 weeks. Monitor renal and for drug toxicity and dose-adjust antibiotics. Will need weekly CBC, BUN/creatinine, ESR, CRP, and Vanc trough. Follow-up with ID 07/18/18 at 1405. (2) Allergy to multiple antibiotics Status: Acute - Subjective Interval history: Patient seen and examined. Appears comfortable. No acute distress. No chest pain or shortness of breath no diarrhea. Good appetite. Her pain significantly improved. In the last 24 hours: Vital signs noted afebrile Labs reviewed . Vancomycin trough 11 Infect Dis PN-Objective Data - Labs CBC & Chem 7: 06/28/18 03:09 06/28/18 03:09 Labs: Laboratory Results - last 24 hr 06/28/18 06/28/18 06/28/18 07:46 11:29 22:02 POC Glucose 105 H 151 H 129 H 06/29/18 06/29/18 06/29/18 00:14 08:10 : POC Glucose 144 H 116 H 107 H Cultures: Cultures 06/23/18 09:29 Anaerobic Culture - Final Right Hip No anaerobes were recovered. 06/22/18 16:21 Blood Culture - Final Peripheral Venipuncture No growth. Final report. 06/22/18 16:21 Blood Culture - Final Peripheral Venipuncture No growth. Final report. 06/23/18 09:29 Wound Culture - Final Right Hip Enterococcus faecalis 06/22/18 16:43 Wound Culture - Final Incision No pathogens isolated. Exam - Constitutional Vitals: Temp Pulse Resp BP Pulse Ox 98.6 F 69 16 94/49 94 06/29/18 12:09 06/29/18 12:09 06/29/18 12:09 06/29/18 12:09 06/29/18 12:09 General appearance: cooperative, no acute distress, no febrile - Additional findings Additional findings: HEENT: [place] EOMI, MMM, no oral thrush Neck: supple, no masses lungs: CTAB, no Wheezing CV: S1S2 RRR Abdomen: soft, NT, normal bowel sounds Ext: no edema, adequate perfusion Neuro: A&Ox3, no focal deficit. Consult Discharge Plan - Plan Instructions: Cellulitis (DC), Diabetes Mellitus Type 2 in Adults (DC), Chronic Obstructive Pulmonary Disease (DC), Chronic Hypertension (DC) Additional Instructions: DISCHARGE INSTRUCTIONS Dr. Hazel DISCHARGE DIAGNOSIS/PROCEDURE Right wound hip I&D ACTIVITY: Weight bearing as tolerated on the bilateral lower extremities Consult discuss therapy to diagnose and treat, ambulate with a walker. WOUND CARE: Daily dressing changes with dry gauze and paper tape or Medipore tape. MEDICATIONS: Antibiotics: See below per the infectious disease specialist. Aspirin: Aspirin 325 mg by mouth twice a day for DVT prophylaxis 2 weeks FOLLOW-UP Follow-up with Dr. Hazel or Dawn Nielsen PA-C at the office on 07/05/18 for a post operative evaluation. Call the office at [phone] to schedule or confirm your appointment. WHEN TO CALL THE DOCTOR OR WHEN TO SEEK CARE BEFORE YOUR APPOINTMENT 1. Excess swelling or increased numbness not made better by elevating the hand and moving the fingers. 2. Uncontrolled pain. 3. A color change in your hand or fingers. 4. Worsening redness or drainage. 5. Fevers over 100.5 degrees F or 38.1 degrees C. 6. Any symptoms that bring concern to you. Note from ID specialist: IV Vanc for 4 weeks, CBC/BUN/Cr weekly and follow with ID Referrals: Leigha Monk CNP [Advanced Practice Nurse] - 07/18/18 2:05 pm NONE,PCP [Primary Care Provider] - Giuliano Hazel MD [Partnered Physician] - Prescriptions: Vancomycin/0.9 % Sod Chloride [Vancomycin 1 G/100Ml-0.9% NaCl] 1 gm IV Q12H 24 Days #48 plast..bag
== END 2018-06-29 18:32 | disposition home health service (06) | DRG 721 ==
LOC: 3NENU 13:05 → EMEROOARM 13:05 → SUATTDRO 16:30 → 3NENU 18:29
PROVIDERS: ADMIT Internal Medicine; ATTEND Internal Medicine